=== PATIENT | female | born 1930 | race Caucasian/White ===

== ENCOUNTER 2017-05-08 09:43 | Emergency (ER) | payer MEDICARE ==
[2017-05-08 09:59] VITALS: BP 129/64
--- NOTE | 2017-05-08 11:13 | RAD ---
INDICATION: Cough and fever for 2 days. On home oxygen. Former tobacco use. Mild cardiomegaly. History of breast cancer. COMPARISON: February 24, 2016 CT. TECHNIQUE: Dual energy PA and routine lateral views of the chest were obtained. REPORT: Elevated lung volumes and both diffuse mild prominence of the interstitial markings and patchy rarefaction of the mid to upper lung zone interstitial markings. Fat-containing RIGHT posterior diaphragmatic hernia corresponding with prior CT. No suspicious focal pulmonary lesions. Negative for pleural effusions. Negative for pneumothorax. The heart, pulmonary vasculature, and mediastinal contours are unremarkable. RIGHT breast surgical clips and abnormal skin contour noted. No suspicious focal osseous lesions evident. IMPRESSION: Stigmata of obstructive lung disease. No acute pulmonary or cardiac process evident.
--- NOTE | 2017-05-08 11:20 | UC ---
Ulises Ross Angela, scribed for Kimmy Saldaña MD on 05/08/17 at 1010 . General HPI - HPI Summary HPI Summary: This pt is a 86 y/o female presenting to [facility] c/o dry cough, sore throat, and chest congestion x2 days. Pt reports it started with a cough, sore throat, and itchy ears. Last night, she states it was the worst and had SOB with chest pain. Per daughter-in- law, her breathing was very labored last night. Currently pt feels her chest is tight but has no pain. She c/o fever, generalized weakness, and nausea today. Pt notes it is painful to pass urine but denies dysuria. Per [id number], pt had difficulty ambulating today, was holding on to everything while walking and tripping. Pt notes she just got back to [place] 4 days ago from [place], [place]; she was there for 6 months. She has not used her albuterol as she did not need it in [place]. Pt reports not drinking enough water. She denies vomiting, diarrhea. Pt is currently on Spiriva, Dulera, and albuterol for treatment of COPD (COPD was diagnosed 25 years ago). PMHx: pneumonia (last year). Pt is a former smoker, quit 1997. - History of Current Complaint Chief Complaint: UCGeneralIllness Stated Complaint: COUGH Hx Obtained From: Patient, Family/Functional Consultant - [id number] Onset/Duration: Lasting Days Timing: Constant Onset Severity: Mild Current Severity: Moderate Associated Signs & Symptoms: Positive: Cough, Chest Pain - chest tightness, Fever - today, SOB, Weakness - generalized. Negative: Diarrhea, Headache, Nausea, Vomiting - Allergy/Home Medications Allergies/Adverse Reactions: Allergies Allergy/AdvReac Type Severity Reaction Status Date / Time Thiopental Allergy Severe Anaphylatic Verified 05/08/17 09:53 Shock / UNCONSIOUS BEES Allergy Anaphylatic Uncoded 05/08/17 09:53 Shock CASHEW NUTS Allergy THROAT Uncoded 05/08/17 09:53 CLOSES SESAME SEED/OIL Allergy Itching Uncoded 05/08/17 09:53 SODIUM PENTOTHAL Allergy Anaphylatic Uncoded 05/08/17 09:53 Shock / UNCONSCIOUS PMH/Surg Hx/FS Hx/Imm Hx Cardiovascular History: Hypertension Respiratory History: COPD Cancer History: Breast Cancer, Other - uterine cancer Other Cancer History: History of uterine carcinoma - Surgical History Surgical History: Yes Surgery Procedure, Year, and Place: 4 glaucoma Trabeculectomy 04/09,04/04,05/31, all at [facility] [place] ,lt cataract x 2,lumpectomy right side,3 surgical biopsies, hysterectomy,tonsils - Family History Known Family History: Positive: Respiratory Disease - Younger sister of multi system failure, had bad lungs., Other - Brother: fatal stomach [place] (age of 78). Arthritis. - Social History Occupation: Retired Lives: With Family - lives with her daughter in an apartment. Alcohol Use: None Substance Use Type: None Smoking Status (MU): Former Smoker - quit date: 1997 - Immunization History Most Recent Influenza Vaccination: 2014 Most Recent Tetanus Shot: unknown - probably outdated. Patient will contact primary care provider Review of Systems Constitutional: Fever, Other - generalized weakness Eyes: Negative ENT: Sore Throat Respiratory: Shortness Of Breath, Cough Cardiovascular: Chest Pain - discomfort/pain in the right upper chest off and on. No hx of CAD but does have a hx of cardiac enlargement on echo last year., Other - chronic lymphedema post cancer treatment; uses compression device regularly Gastrointestinal: Nausea, Other - NEGATIVE: vomiting, diarrhea Genitourinary: Other - POSITIVE: painful urination. NEGATIVE: dysuria Motor: Negative Neurovascular: Negative Musculoskeletal: Negative Neurological: Negative Psychological: Negative Is Patient Immunocompromised?: No All Other Systems Reviewed And Are Negative: Yes Physical Exam Triage Information Reviewed: Yes Appearance: Ill-Appearing - Looks unwell, febrile, moving slowly. Alert, conversant although has hearing loss. Vital Signs: Initial Vital Signs Temp 100.3 F 05/08/17 09:53 Pulse 74 05/08/17 09:53 Resp 18 05/08/17 09:53 BP 129/64 05/08/17 09:53 Pulse Ox 97 05/08/17 09:53 Vital Signs Reviewed: Yes Eyes: Positive: Conjunctiva Clear ENT: Positive: Pharynx normal, Other: - moderate cerumen both canals. Dental Exam: Normal Neck: Positive: Supple, Nontender, No Lymphadenopathy Respiratory: Positive: No respiratory distress, Other: - few crackles left base , dry. Negative: Decreased breath sounds, Accessory muscle use Cardiovascular: Positive: RRR, No Murmur Abdomen Description: Positive: Nontender, No Organomegaly, Soft Musculoskeletal: Positive: Strength Intact, ROM Intact, Edema @ - left leg edema. Neurological: Positive: Alert, Muscle Tone Normal Psychological Exam: Normal Diagnostics - Radiology Chest XR Xray Interpretation: No Acute Changes - IMPRESSION: ED physician has reviewed this radiology report and agrees. A Radiology Interpretation Completed By: ED Physician Re-Evaluation - Re-Evaluation First Eval Re-Evaluation Time: 11:05 Comment: Pt was updated on her chest XR results. Course/Dx - Course Course Of Treatment: doxycycline, albuterol as needed. - Differential Dx - Multi-Symptom Provider Diagnoses: COPD exacerbation, clinical diagnosis of pneumonia. Discharge - Discharge Plan Condition: Stable Disposition: HOME Prescriptions: Albuterol HFA INHALER* [Ventolin HFA Inhaler*] 2 puff INH Q4H PRN #1 mdi PRN Reason: Wheezing Doxycycline (Monohydrate) [Doxycycline Monohydrate] 100 mg PO BID #20 cap Patient Education Materials: Bacterial Pneumonia (ED) Referrals: Jaqui Gutierres MD [Primary Care Provider] - Additional Instructions: As discussed, I suspect that you have an early pneumonia. Doxycycline has been prescribed. This can be taken with a snack, but NO DAIRY because it will interfere with the absorption of the medication. Ensure that you improve your hydration. You can use albuterol as needed for breathlessness. You have a follow up with Dr. Gutierres in 2 days and it is important that you keep that visit. If you become weaker or your breathing worsens, please go to the emergency room. The documentation as recorded by the Ulises dueñas Angela accurately reflects the service I personally performed and the decisions made by me, Kimmy Saldaña MD.
== END 2017-05-08 11:25 | disposition home or self-care (01) ==
LOC: UCEAST 09:43
DX: J44.1 Chronic obstructive pulmonary disease with (acute) exacerbation (principal); J18.9 Pneumonia, unspecified organism; I10 Essential (primary) hypertension; Z85.42 Personal history of malignant neoplasm of other parts of uterus; Z87.891 Personal history of nicotine dependence
CPT/HCPCS: 71020; 99212; G0463

== ENCOUNTER 2017-10-28 12:40 | Emergency (ER) | payer MEDICARE ==
--- NOTE | 2017-10-28 14:11 | RAD ---
Indication: Cough. Weakness. Confusion. Former tobacco use. COPD On home oxygen. History of breast cancer. Comparison: September 28, 2017 CT abdomen. May 08, 2017 chest radiograph. Technique: Upright AP 1350 hours Report: Elevated lung volumes and both diffuse mild prominence of the interstitial markings and patchy rarefaction of the mid to upper lung zone interstitial markings. No focal pulmonary lesion, compelling alveolar consolidation, pleural effusion, pneumothorax. Upper normal heart size. Unremarkable central pulmonary vasculature and mediastinal contours. RIGHT epicardial fat pad noted. Mild eventration of the RIGHT hemidiaphragm. Surgical clips at the RIGHT breast. IMPRESSION: Stigmata of obstructive lung disease. No acute pulmonary or cardiac process evident.
[2017-10-28 14:53] LABS: ABS Basophils 0 10^3/ul (0-0.2); ABS Eosinophils 0.1 10^3/ul (0-0.6); ABS Lymphocytes 0.6 10^3/ul (1.0-4.8); ABS Monocytes 0.6 10^3/ul (0-0.8); ABS Neutrophils 5.4 10^3/ul (1.5-7.7); ABS Nucleated RBC 0 10^3/ul; Eosinophil % 1.2 % (0-6); Hematocrit 37 % (35-47); Hemoglobin 12.6 g/dl (12.0-16.0); Lymphocyte % 8.6 % (25-47); Mean Corpuscular HGB Conc 34 g/dl (31-36); Mean Corpuscular Hemoglobin 30 pg (27-31); Mean Corpuscular Volume 87 fL (80-97); Mean Platelet Volume 8 um3 (7.4-10.4); Nucleated Red Blood Cells % 0; Platelet Count 162 10^3/ul (150-450); Red Blood Count 4.24 10^6/ul (4.0-5.4); Red Cell Distribution Width 15 % (10.5-15); White Blood Count 6.7 10^3/ul (3.5-10.8)
[2017-10-28 15:01] LABS: INR 1.02 (0.77-1.02)
[2017-10-28 15:07] LABS: EGFR Non-African American 58.2 (>60)
[2017-10-28 15:16] LABS: Urine Appearance Clear; Urine Blood Negative (Negative); Urine Color Yellow; Urine Ketones Negative (Negative); Urine Protein Negative (Negative); Urine Urobilinogen Negative (Negative)
[2017-10-28] MEDS ORDERED: NS 0.9% 1000 ML* 1,000 ML IV ONE (16:14)
[2017-10-28] MEDS ORDERED: Sulfamethox/Trimethoprim DS 800/160* TAB PO ONE (18:35)
[2017-10-28 19:16] VITALS: BP 139/48
--- NOTE | 2017-10-29 07:45 | ED ---
Shakir Ross Julia, scribed for Travon Rodriguez MD on 10/28/17 at 1316 . Influenza-Like Illness - HPI Summary HPI Summary: This patient is a 86 year old F presenting to [facility] accompanied by her daughter with a chief complaint of worsening influenza like symptoms since 10/23/17. Patient reports rproductive cough with light yellow sputum, ear pain, sore throat, headache, nausea, and decreased appetite. Patient denies vomiting. Daughter reports that she has not eaten in two days and is feeling dizzy, which is unusual for her. Daughter states she has right chest tightness, which is usual for her when she is ill. Patient states she has been taking Mucinex every 12 hours. - History of Current Complaint Chief Complaint: EDFluSymptoms Time Seen by Provider: 10/28/17 13:01 Hx Obtained From: Patient Onset/Duration: Lasting Days, Still Present Associated Signs & Symptoms: Cough, Sore Throat, Headache - Allergy/Home Medications Allergies/Adverse Reactions: Allergies Allergy/AdvReac Type Severity Reaction Status Date / Time thiopental Allergy Anaphylatic Verified 10/28/17 14:42 Shock BEES Allergy Anaphylatic Uncoded 05/08/17 09:53 Shock CASHEW NUTS Allergy THROAT Uncoded 05/08/17 09:53 CLOSES SESAME SEED/OIL Allergy Itching Uncoded 05/08/17 09:53 SODIUM PENTOTHAL Allergy Anaphylatic Uncoded 05/08/17 09:53 Shock / UNCONSCIOUS PMH/Surg Hx/FS Hx/Imm Hx Endocrine/Hematology History: Reports: Hx Thyroid Disease Denies: Hx Diabetes, Hx Systemic Lupus Erythematosus Cardiovascular History: Reports: Hx Coronary Artery Disease - CHOLESTEROL CONTROL WITH MEDS, Hx Hypertension - on medication, Other Cardiovascular Problems/Disorders - mildly enlarged heart Denies: Hx Congestive Heart Failure, Hx Pacemaker/ICD Respiratory History: Reports: Hx Chronic Obstructive Pulmonary Disease (COPD) - on home O2, Hx Sleep Apnea - UNDIAGNOSISED, Other Respiratory Problems/ Disorders - emphysema Denies: Hx Asthma GI History: Reports: Hx Gastroesophageal Reflux Disease - ON MEDS Denies: Hx Ulcer History: Reports: 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" Denies: Hx Dialysis Musculoskeletal History: Reports: Hx Osteoporosis Denies: Hx Rheumatoid Arthritis Sensory History: Reports: Hx Cataracts, Hx Contacts or Glasses, Hx Glaucoma - BILATERAL, Hx Hearing Problem Denies: Hx Hearing Aid Opthamlomology History: Reports: Hx Cataracts, Hx Contacts or Glasses, Hx Glaucoma - BILATERAL Psychiatric History: Reports: Hx Depression, Hx Panic Disorder - Cancer History Cancer Type, 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 Hx Chemotherapy: Yes - uterine Hx Radiation Therapy: Yes - BREAST - Surgical History Surgery Procedure, Year, and Place: 4 glaucoma Trabeculectomy 04/09,04/04,05/31, all at [facility] [place] ,lt cataract x 2,lumpectomy breast right side,3 surgical biopsies, hysterectomy,tonsils Hx Anesthesia Reactions: No Infectious Disease History: No Infectious Disease History: Denies: Hx Clostridium Difficile, Hx Hepatitis, Hx Human Immunodeficiency Virus (HIV), Hx of Known/Suspected MRSA, Hx Shingles, Hx Tuberculosis - exposed as child, History Other Infectious Disease, Traveled Outside the [place] in Last 30 Days - Family History Known Family History: Positive: Respiratory Disease - Younger sister of multi system failure, had bad lungs., Other - Brother: fatal stomach [place] (age of 78). Arthritis. - Social History Alcohol Use: None Substance Use Type: Reports: None Smoking Status (MU): Former Smoker - quit date: 1997 Review of Systems Positive: Sore Throat, Ear Ache Positive: Chest Pain - "tightness" Positive: Cough Positive: Nausea, Other - decreased appetite. Negative: Vomiting Neurological: Other - dizziness Positive: Headache All Other Systems Reviewed And Are Negative: Yes Physical Exam - Summary Physical Exam Summary: Appearance: The patient is well-nourished in no acute distress and in no acute pain. Skin: The skin is warm and dry and skin color reflects adequate perfusion. Skin is tense. HEENT: The head is normocephalic and atraumatic. The pupils are equal and reactive. The conjunctivae are clear and without drainage. Nares are patent and without drainage. Mouth reveals dry mucous membranes and the throat is without erythema and exudate. The external ears are intact. The ear canals are patent and without drainage. The tympanic membranes are intact. Neck: the neck is supple with full range of motion and non-tender. There are no carotid bruits. There is no neck vein distension. Respiratory: Chest is non-tender. Lungs are clear to auscultation and breath sounds are symmetrical and equal. Cardiovascular: Heart is regular rate and rhythm. There is no murmur or rub auscultated. There is no peripheral edema and pulses are symmetrical and equal. Abdomen: The abdomen is soft and non-tender. There are normal bowel sounds heard in all four quadrants and there is no organomegaly palpated. Musculoskeletal: There is no back tenderness noted. Extremities are non-tender with full range of motion. There is good capillary refill. There is no peripheral edema or calf tenderness elicited. Neurological: Patient is alert and oriented to person, place and time. The patient has symmetrical motor strength in all four extremities. Cranial nerves are grossly intact. Deep tendon reflexes are symmetrical and equal in all four extremities. Psychiatric: The patient has an appropriate affect and does not exhibit any anxiety or depression. Triage Information Reviewed: Yes Vital Signs On Initial Exam: Initial Vitals Temp Pulse Resp BP Pulse Ox 96.7 F 82 19 157/54 91 10/28/17 12:48 10/28/17 12:48 10/28/17 12:48 10/28/17 12:48 10/28/17 12:48 Vital Signs Reviewed: Yes Diagnostics - Vital Signs Vital Signs Temp Pulse Resp BP Pulse Ox 10/28/17 12:48 96.7 F 82 19 157/54 91 - Laboratory Lab Results: Lab Results 10/28/17 10/28/17 10/28/17 Range/Units 14:04 14:44 14:44 WBC 6.7 (3.5-10.8) 10^3/ul RBC 4.24 (4.0-5.4) 10^6/ul Hgb 12.6 (12.0-16.0) g/dl Hct 37 (35-47) % MCV 87 (80-97) fL MCH 30 (27-31) pg MCHC 34 (31-36) g/dl RDW 15 (10.5-15) % Plt Count 162 (150-450) 10^3/ul MPV 8 (7.4-10.4) um3 Neut % (Auto) 81.0 (38-83) % Lymph % (Auto) 8.6 L (25-47) % [place] % (Auto) 8.5 H (0-7) % Eos % (Auto) 1.2 (0-6) % Baso % (Auto) 0.7 (0-2) % Absolute Neuts (auto) 5.4 (1.5-7.7) 10^3/ul Absolute Lymphs (auto) 0.6 L (1.0-4.8) 10^3/ul Absolute Monos (auto) 0.6 (0-0.8) 10^3/ul Absolute Eos (auto) 0.1 (0-0.6) 10^3/ul Absolute Basos (auto) 0 (0-0.2) 10^3/ul Absolute Nucleated RBC 0 10^3/ul Nucleated RBC % 0 INR (Anticoag Therapy) 1.02 (0.77-1.02) APTT 41.2 H (26.0-36.3) seconds Sodium (133-145) mmol/L Potassium (3.5-5.0) mmol/L Chloride (101-111) mmol/L Carbon Dioxide (22-32) mmol/L Anion Gap (2-11) mmol/L BUN (6-24) mg/dL Creatinine (0.51-0.95) mg/dL Est GFR ( Amer) (>60) Est GFR (Non-Af Amer) (>60) BUN/Creatinine Ratio (8-20) Glucose (70-100) mg/dL Lactic Acid (0.5-2.0) mmol/L Calcium (8.6-10.3) mg/dL Total Bilirubin (0.2-1.0) mg/dL AST (13-39) U/L ALT (7-52) U/L Alkaline Phosphatase (34-104) U/L Troponin I (<0.04) ng/mL C-Reactive Protein (< 5.00) mg/L B-Natriuretic Peptide ( - 100) pg/mL Total Protein (6.4-8.9) g/dL Albumin (3.2-5.2) g/dL Globulin (2-4) g/dL Albumin/Globulin Ratio (1-3) Urine Color Yellow Urine Appearance Clear Urine pH 7.0 (5-9) Ur Specific [place] 1.010 (1.010-1.030) Urine Protein Negative (Negative) Urine Ketones Negative (Negative) Urine Blood Negative (Negative) Urine Nitrate Negative (Negative) Urine Bilirubin Negative (Negative) Urine Urobilinogen Negative (Negative) Ur Leukocyte Esterase 3+ A (Negative) Urine WBC (Auto) 2+(11-20/hpf) A (Absent) Urine RBC (Auto) Absent (Absent) Ur Squamous Epith Cells Present A (Absent) Ur Transition Epith Cell Present A (Absent) Urine Bacteria Absent (Absent) Urine Glucose Negative (Negative) Urine Ascorbic Acid * A (Negative) Influenza A (Rapid) (Negative) Influenza B (Rapid) (Negative) 10/28/17 10/28/17 10/28/17 Range/Units 14:44 14:44 14:44 WBC (3.5-10.8) 10^3/ul RBC (4.0-5.4) 10^6/ul Hgb (12.0-16.0) g/dl Hct (35-47) % MCV (80-97) fL MCH (27-31) pg MCHC (31-36) g/dl RDW (10.5-15) % Plt Count (150-450) 10^3/ul MPV (7.4-10.4) um3 Neut % (Auto) (38-83) % Lymph % (Auto) (25-47) % [place] % (Auto) (0-7) % Eos % (Auto) (0-6) % Baso % (Auto) (0-2) % Absolute Neuts (auto) (1.5-7.7) 10^3/ul Absolute Lymphs (auto) (1.0-4.8) 10^3/ul Absolute Monos (auto) (0-0.8) 10^3/ul Absolute Eos (auto) (0-0.6) 10^3/ul Absolute Basos (auto) (0-0.2) 10^3/ul Absolute Nucleated RBC 10^3/ul Nucleated RBC % INR (Anticoag Therapy) (0.77-1.02) APTT (26.0-36.3) seconds Sodium 129 L (133-145) mmol/L Potassium 3.7 (3.5-5.0) mmol/L Chloride 94 L (101-111) mmol/L Carbon Dioxide 27 (22-32) mmol/L Anion Gap 8 (2-11) mmol/L BUN 17 (6-24) mg/dL Creatinine 0.92 (0.51-0.95) mg/dL Est GFR ( Amer) 74.8 (>60) Est GFR (Non-Af Amer) 58.2 (>60) BUN/Creatinine Ratio 18.5 (8-20) Glucose 106 H (70-100) mg/dL Lactic Acid 1.1 (0.5-2.0) mmol/L Calcium 9.5 (8.6-10.3) mg/dL Total Bilirubin 1.50 H (0.2-1.0) mg/dL AST 27 (13-39) U/L ALT 29 (7-52) U/L Alkaline Phosphatase 65 (34-104) U/L Troponin I 0.00 (<0.04) ng/mL C-Reactive Protein 2.27 (< 5.00) mg/L B-Natriuretic Peptide 183 H ( - 100) pg/mL Total Protein 7.3 (6.4-8.9) g/dL Albumin 4.1 (3.2-5.2) g/dL Globulin 3.2 (2-4) g/dL Albumin/Globulin Ratio 1.3 (1-3) Urine Color Urine Appearance Urine pH (5-9) Ur Specific [place] (1.010-1.030) Urine Protein (Negative) Urine Ketones (Negative) Urine Blood (Negative) Urine Nitrate (Negative) Urine Bilirubin (Negative) Urine Urobilinogen (Negative) Ur Leukocyte Esterase (Negative) Urine WBC (Auto) (Absent) Urine RBC (Auto) (Absent) Ur Squamous Epith Cells (Absent) Ur Transition Epith Cell (Absent) Urine Bacteria (Absent) Urine Glucose (Negative) Urine Ascorbic Acid (Negative) Influenza A (Rapid) (Negative) Influenza B (Rapid) (Negative) 10/28/17 10/28/17 Range/Units 14:53 18:25 WBC (3.5-10.8) 10^3/ul RBC (4.0-5.4) 10^6/ul Hgb (12.0-16.0) g/dl Hct (35-47) % MCV (80-97) fL MCH (27-31) pg MCHC (31-36) g/dl RDW (10.5-15) % Plt Count (150-450) 10^3/ul MPV (7.4-10.4) um3 Neut % (Auto) (38-83) % Lymph % (Auto) (25-47) % [place] % (Auto) (0-7) % Eos % (Auto) (0-6) % Baso % (Auto) (0-2) % Absolute Neuts (auto) (1.5-7.7) 10^3/ul Absolute Lymphs (auto) (1.0-4.8) 10^3/ul Absolute Monos (auto) (0-0.8) 10^3/ul Absolute Eos (auto) (0-0.6) 10^3/ul Absolute Basos (auto) (0-0.2) 10^3/ul Absolute Nucleated RBC 10^3/ul Nucleated RBC % INR (Anticoag Therapy) (0.77-1.02) APTT (26.0-36.3) seconds Sodium (133-145) mmol/L Potassium (3.5-5.0) mmol/L Chloride (101-111) mmol/L Carbon Dioxide (22-32) mmol/L Anion Gap (2-11) mmol/L BUN (6-24) mg/dL Creatinine (0.51-0.95) mg/dL Est GFR ( Amer) (>60) Est GFR (Non-Af Amer) (>60) BUN/Creatinine Ratio (8-20) Glucose (70-100) mg/dL Lactic Acid 1.1 (0.5-2.0) mmol/L Calcium (8.6-10.3) mg/dL Total Bilirubin (0.2-1.0) mg/dL AST (13-39) U/L ALT (7-52) U/L Alkaline Phosphatase (34-104) U/L Troponin I (<0.04) ng/mL C-Reactive Protein (< 5.00) mg/L B-Natriuretic Peptide ( - 100) pg/mL Total Protein (6.4-8.9) g/dL Albumin (3.2-5.2) g/dL Globulin (2-4) g/dL Albumin/Globulin Ratio (1-3) Urine Color Urine Appearance Urine pH (5-9) Ur Specific [place] (1.010-1.030) Urine Protein (Negative) Urine Ketones (Negative) Urine Blood (Negative) Urine Nitrate (Negative) Urine Bilirubin (Negative) Urine Urobilinogen (Negative) Ur Leukocyte Esterase (Negative) Urine WBC (Auto) (Absent) Urine RBC (Auto) (Absent) Ur Squamous Epith Cells (Absent) Ur Transition Epith Cell (Absent) Urine Bacteria (Absent) Urine Glucose (Negative) Urine Ascorbic Acid (Negative) Influenza A (Rapid) Negative (Negative) Influenza B (Rapid) Negative (Negative) Result Diagrams: 10/28/17 14:44 10/28/17 14:44 Lab Statement: Any lab studies that have been ordered have been reviewed, and results considered in the medical decision making process. - Radiology CXR Radiology Interpretation Completed By: Radiologist - Stigmata of obstructive lung disease. No acute pulmonary or cardiac process evident. ED Physician has reviewed this report. Flu Symptom Course/Dx - Course Course Of Treatment: Ms. Clement presented with flu-like symptoms for a few days. She looked dry and was treated with IV NS. He W/U was negative for influenza or pneumonia but she clinically has a bronchitis with underlying pulmonary disease and I will treat her with antibiotics. Her U/A is equivocal and I will cover both. - Diagnoses Provider Diagnoses: Bronchitis Discharge - Discharge Plan Condition: Stable Disposition: HOME Prescriptions: Sulfamethox/Trimethoprim DS* [Bactrim DS 800/160 TAB*] 1 tab PO BID #20 tab Patient Education Materials: Acute Bronchitis (ED) Referrals: Jaqui Gutierres MD [Primary Care Provider] - 3 Days (Follow up with you primary care physician.) The documentation as recorded by the Shakir dueñas Julia accurately reflects the service I personally performed and the decisions made by me, Travon Rodriguez MD.
== END 2017-10-28 19:16 | disposition home or self-care (01) ==
LOC: ED 12:40
DX: J40 Bronchitis, not specified as acute or chronic (principal); J44.9 Chronic obstructive pulmonary disease, unspecified; F32.9 Major depressive disorder, single episode, unspecified; Z85.42 Personal history of malignant neoplasm of other parts of uterus; I25.10 Atherosclerotic heart disease of native coronary artery without angina pectoris; E07.9 Disorder of thyroid, unspecified; Z87.891 Personal history of nicotine dependence
CPT/HCPCS: 36415; 71045; 80053; 81003; 81015; 83605; 83880; 84484; 85025; 85610; 85730; 86140; 87040; 87086; 87502; 96360; 99282; A9270-GY

== ENCOUNTER 2017-10-30 04:36 | Inpatient (IN) | payer MEDICARE ==
[2017-10-30] MEDS ORDERED: NS 0.9% 1000 ML* 1,000 ML IV ONE (04:45)
[2017-10-30] MEDS ORDERED: methylPREDNISolone 125 MG* 2 ML VIAL IV ONE (04:46)
[2017-10-30] MEDS ORDERED: Albuterol/Ipratropium NEB.SOL* Albuterol 2.5 MG/Ipratropium 0.5 MG 3 ML INH ONE (04:46)
[2017-10-30 07:04] LABS: ABS Basophils 0 10^3/ul (0-0.2); ABS Eosinophils 0 10^3/ul (0-0.6); ABS Lymphocytes 0.5 10^3/ul (1.0-4.8); ABS Monocytes 0.5 10^3/ul (0-0.8); ABS Neutrophils 7.5 10^3/ul (1.5-7.7); ABS Nucleated RBC 0 10^3/ul; Eosinophil % 0.1 % (0-6); Hematocrit 33 % (35-47); Hemoglobin 11.4 g/dl (12.0-16.0); Lymphocyte % 5.6 % (25-47); Mean Corpuscular HGB Conc 35 g/dl (31-36); Mean Corpuscular Hemoglobin 30 pg (27-31); Mean Corpuscular Volume 86 fL (80-97); Mean Platelet Volume 8 um3 (7.4-10.4); Nucleated Red Blood Cells % 0; Platelet Count 145 10^3/ul (150-450); Red Blood Count 3.81 10^6/ul (4.0-5.4); Red Cell Distribution Width 14 % (10.5-15); White Blood Count 8.4 10^3/ul (3.5-10.8)
--- NOTE | 2017-10-30 07:09 | ED ---
Kaden Ross Nikita, scribed for Rashard Medina MD on 10/30/17 at 0446 . Respiratory - HPI Summary HPI Summary: This patient is an 86 year old F BIBA to ED with a chief complaint of SOB since yesterday. Patient was in the ED yesterday for similar symptoms and was D/C with bronchitis and sent home with bactrum for abx. The patient rates the pain 0 /10 in severity. Symptoms aggravated by nothing. Symptoms alleviated by nothing. Patient reports cough and difficulty breathing. Patient denies fever, CP, or any pain. - History of Current Complaint Stated Complaint: SOB Time Seen by Provider: 10/30/17 04:41 Hx Obtained From: Patient Onset/Duration: Sudden Onset, Lasting Days, Still Present Timing: Constant Current Severity: None Pain Intensity: 0 Aggravating Factor(s): Nothing Alleviating Factor(s): Nothing Associated Signs and Symptoms: SOB - Patient reports cough and difficulty breathing. Patient denies fever, CP, or any pain. - Allergy/Home Medications Allergies/Adverse Reactions: Allergies Allergy/AdvReac Type Severity Reaction Status Date / Time thiopental Allergy Anaphylatic Verified 10/28/17 14:42 Shock BEES Allergy Anaphylatic Uncoded 05/08/17 09:53 Shock CASHEW NUTS Allergy THROAT Uncoded 05/08/17 09:53 CLOSES SESAME SEED/OIL Allergy Itching Uncoded 05/08/17 09:53 SODIUM PENTOTHAL Allergy Anaphylatic Uncoded 05/08/17 09:53 Shock / UNCONSCIOUS PMH/Surg Hx/FS Hx/Imm Hx Endocrine/Hematology History: Reports: Hx Thyroid Disease Denies: Hx Diabetes, Hx Systemic Lupus Erythematosus Cardiovascular History: Reports: Hx Coronary Artery Disease - CHOLESTEROL CONTROL WITH MEDS, Hx Hypertension - on medication, Other Cardiovascular Problems/Disorders - mildly enlarged heart Denies: Hx Congestive Heart Failure, Hx Pacemaker/ICD Respiratory History: Reports: Hx Chronic Obstructive Pulmonary Disease (COPD) - on home O2, Hx Sleep Apnea - UNDIAGNOSISED, Other Respiratory Problems/ Disorders - emphysema Denies: Hx Asthma GI History: Reports: Hx Gastroesophageal Reflux Disease - ON MEDS Denies: Hx Ulcer History: Reports: 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" Denies: Hx Dialysis Musculoskeletal History: Reports: Hx Osteoporosis Denies: Hx Rheumatoid Arthritis Sensory History: Reports: Hx Cataracts, Hx Contacts or Glasses, Hx Glaucoma - BILATERAL, Hx Hearing Problem Denies: Hx Hearing Aid Opthamlomology History: Reports: Hx Cataracts, Hx Contacts or Glasses, Hx Glaucoma - BILATERAL Psychiatric History: Reports: Hx Depression, Hx Panic Disorder - Cancer History Cancer Type, 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 Hx Chemotherapy: Yes - uterine Hx Radiation Therapy: Yes - BREAST - Surgical History Surgery Procedure, Year, and Place: 4 glaucoma Trabeculectomy 04/09,04/04,05/31[place] [facility] [place] [facility] [place] 2,lumpectomy breast right side,3 surgical biopsies, hysterectomy,tonsils Hx Anesthesia Reactions: No Infectious Disease History: Denies: Hx Clostridium Difficile, Hx Hepatitis, Hx Human Immunodeficiency Virus (HIV), Hx of Known/Suspected MRSA, Hx Shingles, Hx Tuberculosis - exposed as child, History Other Infectious Disease - Family History Known Family History: Positive: Respiratory Disease - Younger sister of multi system failure, had bad lungs., Other - Brother: fatal stomach CA (age of 78). Arthritis. - Social History Alcohol Use: None Substance Use Type: Reports: None Smoking Status (MU): Former Smoker - quit date: 1997 Review of Systems Negative: Fever Negative: Chest Pain Positive: Shortness Of Breath, Cough, Other - difficulty breathing Positive: Other - denies any pain All Other Systems Reviewed And Are Negative: Yes Physical Exam - Summary Physical Exam Summary: Appearance: Well appearing, no pain distress Skin: warm, dry, reflects adequate perfusion Head/face: normal Eyes: EOMI, MARCELLUS ENT: Dry mucous membranes, hard of hearing Neck: supple, non-tender, No JVD of the neck Respiratory: breath sounds present, Diffuse expiratory wheezing with prolonged expiratory phase, Wheezing and rustling breath sounds of the bases, hypoxic on O2 at home, 91-94% on 2 L O2 Cardiovascular: RRR, pulses symmetrical, no murmur Abdomen: non-tender, soft Bowel: present Musculoskeletal: normal, strength/ROM intact, No peripheral edema Neuro: normal, sensory motor intact, A&Ox3 Triage Information Reviewed: Yes Vital Signs On Initial Exam: Initial Vitals Temp Pulse Resp BP Pulse Ox 99.3 F 92 22 145/55 99 10/30/17 04:41 10/30/17 04:41 10/30/17 04:41 10/30/17 04:41 10/30/17 04:41 Vital Signs Reviewed: Yes Diagnostics - Vital Signs Vital Signs Temp Pulse Resp BP Pulse Ox 10/30/17 06:39 111 20 134/65 97 10/30/17 05:16 90 20 100 10/30/17 04:46 22 10/30/17 04:41 37.4 C 92 22 145/55 99 - Laboratory Lab Results: Lab Results 10/30/17 Range/Units 05:30 Patient Temperature Not Reportable ABG pH 7.43 (7.35-7.45) ABG pH (Temp Correct) Not Reportable ABG pCO2 34 L (35-45) mmHg ABG pCO2 (Temp Corrct Not Reportable ABG pO2 85 (80-100) mmHg ABG pO2 (Temp Correct Not Reportable ABG HCO3 23.9 (19-31) mmol/L ABG O2 Saturation 98.7 H (95-98) % ABG Base Excess -1.2 (-2.0-2.0) Respiration Rate Not Reportable O2 Delivery Device nasal cannula Ventilator Type Not Reportable Vent Mode Not Reportable FiO2 30 Inspiratory Time Not Reportable PEEP Not Reportable Pressure Support Not Reportable Pressure Control Not Reportable EPAP Not Reportable IPAP Not Reportable BiPAP Not Reportable Lab Statement: Any lab studies that have been ordered have been reviewed, and results considered in the medical decision making process. - Radiology CXR Radiology Interpretation Completed By: ED Physician - COPD with domed diaphragm vs. atelectasis R lower lobe, no acute infiltrate - EKG 0459 Cardiac Rate: NL EKG Rhythm: Sinus Rhythm - [address] Segment: Non-Specific - with baseline wander EKG Interpretation: Normal axis, QTC 491 msec Disposition - Course Course Of Treatment: pt with COPD with hypoxia. Didnt wear her O2. Steroid, nebs here improved sx. Signed out pending labs to Dr Nance at 7am. - Differential Dx - Cardiopulmonary Differential Diagnoses - Cardiopulmonary: Bronchitis, Exacerbation Of COPD, Other - pneumonia, congestive heart failure - Diagnoses Provider Diagnoses: COPD exacerbation, Hypoxia Discharge - Discharge Plan Condition: Fair Disposition: OTHER Discharge Disposition Comment: This pt will be signed out to Dr. Arthur, pending dispo, awaiting labs. Referrals: Jaqui Gutierres MD [Primary Care Provider] - The documentation as recorded by the scribe, Kaden,Sachin accurately reflects the service I personally performed and the decisions made by me, Rashard Medina MD.
[2017-10-30 07:20] LABS: EGFR Non-African American 64.6 (>60)
[2017-10-30] MEDS ORDERED: Acetaminophen TAB* 325 MG PO ONE (07:26)
[2017-10-30] MEDS ORDERED: Acetaminophen TAB* 325 MG ONE (07:26)
--- NOTE | 2017-10-30 07:31 | RAD ---
INDICATION: COPD COMPARISON: October 28, 2017 TECHNIQUE: An AP portable view obtained at 0500 hours is submitted. FINDINGS: Bones/Soft Tissues: There are no acute bony findings. Clips project over the right breast consistent with prior chest wall surgery. Cardiomediastinal: The cardiomediastinal silhouette is normal. Lungs: There is no focal consolidation. There is mild diffuse increased interstitial markings ribs and a stable finding. Minimal linear change left lung base most consistent with atelectasis. Pleura: There are no pleural effusions. Other: There is partial eventration right hemidiaphragm, unchanged. IMPRESSION: ESSENTIALLY STABLE EXAMINATION WITH CHRONIC INTERSTITIAL FINDINGS.
[2017-10-30] MEDS ORDERED: Potassium Chlor TAB* 20 MEQ TAB.ER PO ONE ×2 (07:32→18:00)
[2017-10-30] MEDS ORDERED: Lactulose 300 ML for PR* 10 GM/15 ML BTL PR PRN (09:16)
[2017-10-30] MEDS ORDERED: Fluticasone NASAL SPRAY 50MCG* 16 gm SPRAY BTL BOTH NARES PRN (09:16)
[2017-10-30] MEDS ORDERED: Albuterol/Ipratropium NEB.SOL* Albuterol 2.5 MG/Ipratropium 0.5 MG 3 ML INH SCH (10:00)
[2017-10-30] MEDS: methylPREDNISolone SOD 40 MG* 1 ML VIAL IV SCH ×2 (10:04→18:10)
[2017-10-30] MEDS: NS 0.9% 1000 ML* 1,000 ML IV SCH (11:45)
[2017-10-30] MEDS: Azithromycin IV(*) 500 MG in D5W 250 ML BAG* 250 ML IVPB SCH (11:45)
[2017-10-30] MEDS: Heparin VIAL(*) 5000 UNITS/ML VIAL (FIVE THOUSAND) SUBCUT SCH ×2 (13:47→20:57)
[2017-10-30] MEDS: PROCHLORPERAZINE INJ 5 MG/ML 2 ML VIAL IV PRN (15:34)
[2017-10-30] MEDS: Albuterol/Ipratropium NEB.SOL* Albuterol 2.5 MG/Ipratropium 0.5 MG 3 ML INH PRN (15:55)
[2017-10-30] MEDS: Acetaminophen TAB* 325 MG PO PRN (18:30)
[2017-10-30] MEDS ORDERED: Potassium Chloride LIQUID* 20 MEQ PACKET PO ONE (18:45)
[2017-10-30] MEDS: Albuterol/Ipratropium NEB.SOL* Albuterol 2.5 MG/Ipratropium 0.5 MG 3 ML INH SCH (19:56)
--- NOTE | 2017-10-30 20:53 | ED ---
Isaias Ross Natalie, scribed for Sharyn Arthur MD on 10/30/17 at 1148 . Progress - Progress Note Progress Note: The patient is a sign-out from Dr. Medina at shift change. She was in the ED 10/28/17 for SOB, and Dr. Rodriguez D/C her with prescription for Bactrim. She returned for continuing SOB. During initial visit, the patient stated she is thirsty and very hot. Her temperature is 101.8F. The patient says her breathing feels better, and she is not wheezing. Her daughter states that she is very shaky, and the patients pulse is higher than normal at 106 instead of around 65. She had three nebs this am instead of her usual two, which could contribute to the increased pulse rate. At home, she has 2L O2, but does not use it as shes supposed to. A previous flu swab from 10/28/17 is negative. Re-Evaluation - Re-Evaluation First Eval Re-Evaluation Time: 08:00 Change: Unchanged Comment: I discussed with the patient about her [place] [facility] Course/Dx - Course Course Of Treatment: pt with COPD with hypoxia. Didnt wear her O2. Steroid, nebs here improved sx. Signed out pending labs to Dr Arthur at 7am. The patient 's labs show hyponatremia, hypokalemia, hypocalcemia, anemia. Pt developed fever in ED. Source: pneumonia. Initial lactate not elevated. Blood cultures were sent on Dr. Medina's shift. Sepsis fluids not given as serum sodlium is low, and may be due to SIADH due to lung disease. Hospitalist to eval hyponatremia with U Na and U osm. Pt given acetaminophen. Potassium and calcium given po. The patient is admitted to [facility] DISPOSITION: [place]MISSION [place] [facility] CONDITION: STABLE. DIAGNOSIS: HYPOXIA, COPD EXACERBATION, BRONCHITIS - Diagnoses Provider Diagnoses: COPD exacerbation, Hypoxia, Bronchitis - Provider Notifications Instructed by Provider To: Admit As Inpatient - Critical Care Time Critical Care Time: 30-74 min - 30 minutes The documentation as recorded by the Isaias dueñas Natalie accurately reflects the service I personally performed and the decisions made by me, Sharyn Arthur MD.
[2017-10-30] MEDS: Docusate CAP* 100 MG PO SCH (20:57)
--- NOTE | 2017-10-30 22:05 | HP ---
CC: Dr. Gutierres* HISTORY AND PHYSICAL: DATE OF ADMISSION: 10/30/17 PRIMARY CARE PROVIDER: Dr. Gutierres. CHIEF COMPLAINT: Shortness of breath. HISTORY OF PRESENT ILLNESS: Aminah Clement is an 86-year-old female with a history of COPD, who should be using oxygen at home, but she stated she has not been. It was prescribed to her 3 years ago. She also has a history of uterine cancer , who presented to the hospital complaining of shortness of breath. She was seen here in the emergency department 3 days ago and prescribed Bactrim for bronchitis. Today, she presents with more wheezing. She is being diagnosed with COPD exacerbation and bronchitis and she is going to be admitted. I suspect the patient will need approximately 2 to 3 days of hospital stay. PAST MEDICAL HISTORY: 1. COPD, oxygen dependent on a p.r.n. basis. 2. History of endometrial carcinosarcoma, status post total abdominal hysterectomy and bilateral salpingo-oophorectomy in 2012. 3. History of vitamin B12 deficiency. 4. Hypertension. 5. Hypothyroidism. 6. History of breast cancer, status post a lumpectomy in 2000 and tamoxifen for 5 years at that point. 7. Gastroesophageal reflux disease. 8. Glaucoma. 9. Dyslipidemia. 10. Hypertension. 11. Hypothyroidism. 12. History of lymphedema in the left leg of unknown cause, chronic. 13. History of eye surgery. 14. History of tonsillectomy. CURRENT MEDICATIONS: Include: 1. Bactrim DS 1 tablet b.i.d. started today. 2. Singulair 10 mg daily. 3. Restasis 0.05% one drop both eyes b.i.d. 4. Spiriva inhalation 2 puffs at bedtime. 5. Symbicort 160/4.5 two puffs b.i.d. 6. Hydrochlorothiazide 25 mg daily. 7. Flonase nasal spray 1 spray both nostrils daily p.r.n. 8. Fluoxetine 20 mg daily. 9. Nexium 40 mg daily. 10. Levothyroxine 75 mcg daily. 11. Lactulose 30 mL one bottle on a p.r.n. basis. 12. Travatan 0.004% one drop both eyes daily. 13. Timolol eye drops 0.5% one drop right eye daily. 14. Metoprolol tartrate 50 mg daily. 15. Valsartan 20 mg b.i.d. 16. Atorvastatin 20 mg daily. 17. Amlodipine 10 mg daily. 18. Atrovent inhaler 1 puff every 6 hours p.r.n. ALLERGIES: Include THIOPENTAL. FAMILY HISTORY: Positive for sister with breast cancer, brother with leukemia. Rheumatoid arthritis in sisters. Daughter with history of SLE. SOCIAL HISTORY: The patient has a history of [id number] smoking and she quit in 1996. She denies any alcohol or drug use. She lives with her daughter, who is her surrogate. Her name is Valarie Clement. REVIEW OF SYSTEMS: Please see history of present illness. In addition to abovementioned, the patient stated that she had been having intermittent fevers in the range of up to 101 degrees. The temperature reported in the ED was 100.3 degrees. She stated that she is coughing and some times, she coughs up green sputum, but usually it is nonproductive. Complains of wheezing and marked shortness of breath for the past week. She had been eating poorly and drinking poorly. All the remaining 12 systems were reviewed with the patient and were otherwise negative. PHYSICAL EXAMINATION GENERAL: The patient is a very pleasant 86-year-old female, who is in no acute distress. Alert, awake, and oriented x3. VITAL SIGNS: Blood pressure of 140/58, heart rate of 96 and regular, respiratory rate of 20, O2 saturation 97% on 2 L of oxygen via nasal cannula, and temperature 97.7. HEENT: Head atraumatic, normocephalic. Eyes: Pupils are equal and reactive to light and accommodation. Oropharynx clear. Mucosa moist. NECK: Supple. No JVD. No bruits bilaterally. RESPIRATORY: Diffuse wheezes in bilateral entire lungs. Rhonchi in bilateral bases. CARDIOVASCULAR: Regular rate and rhythm. No murmur. ABDOMEN: Soft and nontender. Bowel sounds present in all 4 quadrants. EXTREMITIES: There is trace pedal edema in the right lower extremity, +1 pedal edema in the left lower extremity, which is due to chronic lymphedema. There was no clubbing or cyanosis. Pulses are +2 bilaterally. NEUROLOGIC: Cranial nerves II through XII grossly intact. Motor strength is 5/ 5 bilaterally. Speech clear. SKIN: No ecchymotic areas or rashes noted. LABORATORY DATA: Showed white blood cell count of 8.4, hemoglobin 11.4, hematocrit of 33, and platelets of 145. Sodium was 125, potassium 3.1, chloride 94, carbon dioxide 21, BUN 17, creatinine 0.84. ABG obtained today showed pH of 7.43, PCO2 of 34, PO2 of 85, and bicarb of 23.9. C-reactive protein was 98, troponin of 0.01, procalcitonin below 0.1, and brain natriuretic peptide was 275. Flu test documented on 10/28/17 was negative. Portable chest x-ray obtained on 10/30/17, impression: "Essentially stable examination with chronic interstitial findings." EKG showed sinus tachycardia with a heart rate of 90 beats per minute with no significant ST changes. ASSESSMENT AND PLAN: 1. In regards to the patient's hypoxemia, it is likely chronic and the patient was supposed to use oxygen at home. She is in chronic obstructive pulmonary disease exacerbation, which may be contributing to worsening of hypoxemia and she is going to be placed on Solu-Medrol as well as nebulizers on a scheduled basis. 2. For bronchitis, the patient is going to be placed on azithromycin. 3. The patient's hyponatremia is likely related to her combination of use of hydrochlorothiazide and dehydration. Hydrochlorothiazide and valsartan is going to be held. 4. The patient is going to be continued on amlodipine and metoprolol for her hypertension. 5. Gastroesophageal reflux disease is going to be treated with omeprazole. Nexium is not on formulary of either hospital. 6. For her DVT prophylaxis, the patient is going to be placed on heparin subcutaneously. 7. For dehydration, she is going to be placed on intravenous fluids. 8. The patient's code status is full. That was discussed with both the patient 's daughter, who is her surrogate, and the patient. 9. The patient's hypokalemia is going to be replaced orally. TIME SPENT: Approximately 72 minutes were spent on the admission of this patient, more than half that time was spent [id number] with the patient during the interview and physical exam. [id number] #: [id number] MTDD
[2017-10-31] MEDS: PROCHLORPERAZINE INJ 5 MG/ML 2 ML VIAL IV PRN (00:08)
[2017-10-31] MEDS: Acetaminophen TAB* 325 MG PO PRN (00:08)
[2017-10-31] MEDS: guaiFENesin LIQ* 100 MG/5 ML UDC PO PRN ×2 (00:08→21:40)
[2017-10-31] MEDS: Albuterol/Ipratropium NEB.SOL* Albuterol 2.5 MG/Ipratropium 0.5 MG 3 ML INH SCH ×4 (00:14→21:49)
[2017-10-31] MEDS: methylPREDNISolone SOD 40 MG* 1 ML VIAL IV SCH ×4 (01:41→17:29)
[2017-10-31] MEDS: Calcium Carbonate CHEW TAB* 500 MG (TUMS) PO PRN ×2 (02:44→20:21)
[2017-10-31] MEDS: Levothyroxine TAB* 75 MCG TAB PO SCH (05:08)
[2017-10-31] MEDS: Omeprazole CAP* 20 MG PO SCH (05:08)
[2017-10-31] MEDS: Heparin VIAL(*) 5000 UNITS/ML VIAL (FIVE THOUSAND) SUBCUT SCH ×3 (05:09→21:40)
[2017-10-31 05:58] LABS: EGFR Non-African American 72.5 (>60)
[2017-10-31 08:31] LABS: ABS Basophils 0 10^3/ul (0-0.2); ABS Eosinophils 0 10^3/ul (0-0.6); ABS Lymphocytes 0.6 10^3/ul (1.0-4.8); ABS Monocytes 0.9 10^3/ul (0-0.8); ABS Neutrophils 11.5 10^3/ul (1.5-7.7); ABS Nucleated RBC 0 10^3/ul; Eosinophil % 0 % (0-6); Hematocrit 35 % (35-47); Lymphocyte % 4.8 % (25-47); Mean Corpuscular HGB Conc 34 g/dl (31-36); Mean Corpuscular Hemoglobin 30 pg (27-31); Mean Corpuscular Volume 86 fL (80-97); Mean Platelet Volume 9 um3 (7.4-10.4); Nucleated Red Blood Cells % 0.1; Platelet Count 197 10^3/ul (150-450); Red Blood Count 4.07 10^6/ul (4.0-5.4); Red Cell Distribution Width 15 % (10.5-15); White Blood Count 13.1 10^3/ul (3.5-10.8)
[2017-10-31] MEDS: Timolol 0.5% OPTH.SOL* BTL RIGHT EYE SCH ×3 (10:02→20:22)
[2017-10-31] MEDS: Docusate CAP* 100 MG PO SCH ×2 (10:02→20:21)
[2017-10-31] MEDS: FLUoxetine CAP* 20 MG PO SCH (10:03)
[2017-10-31] MEDS: amLODIPine TAB* 5 MG PO SCH (10:03)
[2017-10-31] MEDS: Atorvastatin* 20 MG TAB PO SCH (10:03)
[2017-10-31] MEDS: Metoprolol Tartrate TAB* 50 mg PO SCH (10:03)
[2017-10-31] MEDS: Albuterol/Ipratropium NEB.SOL* Albuterol 2.5 MG/Ipratropium 0.5 MG 3 ML INH PRN (12:10)
--- NOTE | 2017-10-31 12:36 | RAD ---
INDICATION: Code patel, change in mental status. COMPARISON: There are no prior studies available for comparison. TECHNIQUE: Contiguous axial sections of the brain were obtained from the skull base to the vertex without contrast. FINDINGS: The ventricles, cisterns and sulci are enlarged consistent with diffuse atrophy. There are multiple focal areas of decreased density in the subcortical and periventricular white matter suggestive of moderate chronic small vessel ischemic changes. No mass effect is present. There is no evidence for hemorrhage. There is mild mucosal thickening within the maxillary sinuses. The paranasal sinuses and mastoid air cells otherwise appear clear. The results of this exam were called to the referring clinician at 1228 hours. IMPRESSION: 1. NO EVIDENCE FOR GROSS ACUTE INFARCT, MASS EFFECT OR HEMORRHAGE. 2. ATROPHY AND FINDINGS CONSISTENT WITH CHRONIC SMALL VESSEL ISCHEMIC CHANGES.
[2017-10-31] MEDS ORDERED: Furosemide IV* 10 MG/ML 2 ML VIAL (20 MG) IV SLOW PU ONE (12:37)
--- NOTE | 2017-10-31 12:52 | PN ---
Subjective Date of Service: 10/31/17 Interval History: Patient seen and examined at bedside. [facility] staff notified provider that Patient had a sudden change in mental status after receiving her midline. Per staff at bedside Pt had been alert and oriented this morning, Pt became unresponsive and was staring to the left with a fixed gauze. Just prior to that Pt had been c/o increased shortness of breath and found to be hypoxic with O2 sats 70-80s. RT was called to bedside for an assessment. Pt received a breathing treatment and was noted to have wheezing and increased work of breathing. Per [facility] staff Pt was last seen normal at 1145. 1155: Provider arrived to the room and Pt's gauze was to the left and she was holding her arms in the air and they were "shaking". Pt with equal pupils but without reaction to light. Also unable to respond to commands. Pt would not blink with movement towards eyes. NIH score 10. Tele monitor placed. Giselle Larsen called and Pt taken to CT scan. Pt noted to have work of breathing. Dr. Boucher and Dr. Jacobsen also to bedside, this appears to be metabolic in cause and not a CVA. CT scan brain negative for acute infract. Chest xray shows vascular congestion. Pt was transported to ICU, ABG obtained showing a Respiratory Acidosis. Pt was started on BiPAP. Family is at bedside. Discussed with Pt's daughter at bedside, and they would like trial intubation Family History: Unchanged from Admission Social History: Unchanged from Admission Past Medical History: Unchanged from Admission Objective Active Medications: Acetaminophen (Tylenol Tab*) 650 mg PO Q4H PRN Reason: FEVER/PAIN Albuterol/Ipratropium (Duoneb (Albuterol 2.5 Mg/Ipratropium 0.5 Mg)) 1 neb INH Q2H PRN Reason: SOB/WHEEZING Albuterol/Ipratropium (Duoneb (Albuterol 2.5 Mg/Ipratropium 0.5 Mg)) 1 neb INH 0100,0700,1300,1900 SHADI Amlodipine Besylate (Norvasc Tab*) 10 mg PO DAILY SHADI Atorvastatin Calcium (Lipitor*) 20 mg PO DAILY SHADI Calcium Carbonate (Tums*) 500 mg PO Q4H PRN Reason: INDIGESTION Docusate Sodium (Colace Cap*) 100 mg PO BID SHADI Fluoxetine HCl (Prozac Cap*) 20 mg PO DAILY [facility] Fluticasone Propionate (Flonase Nasal [place] 50mcg*) 1 spray BOTH NARES BID PRN Reason: allergies Furosemide (Lasix Iv*) 20 mg IV SLOW PU ONCE ONE Stop: 10/31/17 12:38 Guaifenesin (Robitussin*) 5 ml PO Q4H PRN Reason: COUGH Heparin Sodium (Porcine) (Heparin Vial(*)) 5,000 units SUBCUT Q8HR [facility] Sodium Chloride (Ns 0.9% 1000 Ml*) 1,000 mls @ 75 mls/hr IV PER RATE [facility] Azithromycin 500 mg/ Dextrose 250 mls @ 250 mls/hr IVPB Q24H [facility] Lactulose (Lactulose 300 Ml For Pr*) 200 gm MS DAILY PRN Reason: CONSTIPATION Levothyroxine Sodium (Synthroid Tab*) 75 mcg PO DAILY@0600 [facility] Methylprednisolone Sodium Succinate (Solu-Medrol 40 Mg) 40 mg IV Q8H [facility] Metoprolol Tartrate (Lopressor Tab*) 50 mg PO DAILY SHADI Omeprazole (Prilosec Cap*) 20 mg PO DAILY@0600 [facility] Prochlorperazine Edisylate (Compazine Inj*) 5 mg IV Q6H PRN Reason: NAUSEA/ VOMITING Timolol Maleate (Timoptic 0.5% Opth*) 1 drop RIGHT EYE 2100 [facility] Vital Signs - 8 hr 10/31/17 10/31/17 10/31/17 07:47 07:55 08:00 Temperature 98.4 F Pulse Rate 102 98 Respiratory 17 22 22 Rate Blood Pressure 140/62 (mmHg) O2 Sat by Pulse 98 96 Oximetry Oxygen Devices in Use Now: Nasal Cannula Appearance: Pt laying in bed and appears to be in respiratory distress Respiratory: Symmetrical Chest Expansion and Respiratory Effort, - - Lung sounds with exp wheezing and rhonchi bilateral Cardiovascular: NL Sounds; No Murmurs; No JVD, RRR Abdominal: NL Sounds; No Tenderness; No Distention Extremities: - - Mild bilateral LE edema Neurological: - - Alert, unable to determine orientation Lines/Tubes/Other Access: Clean, Dry and Intact PICC Line - Midline patent and site benign Result Diagrams: 10/31/17 05:24 10/31/17 05:24 Additional Lab and Data: Lab Results Laboratory Tests 10/31/17 12:25 ABG pH 7.08 L* ABG pCO2 76 H* ABG pO2 72 L ABG HCO3 17.9 L ABG O2 Saturation 93.8 L ABG Base Excess -8.8 L FiO2 5 Assess/Plan/Problems-Billing Assessment: Ms. Clement is an 86 yo female with PMH significant for COPD with chronic hypoxic respiratory failure who refuses home O2, Vit B12 def, HTN, hypothyroidism, breast CA, GERD, glaucoma, HLD, lymphedema, endometrial CA who presented to the emergency room with complaints of wheezing and not improving after being diagnosed with bronchitis and started on bactrim. - Patient Problems (1) Altered mental status Code(s): R41.82 - ALTERED MENTAL STATUS, UNSPECIFIED SNOMED Code(s): 937119599 Comment: - Suspect secondary to acute hypoxic/hypercabic respiratory failure with respiratory acidosis. Suspect respiratory acidosis is secondary to hypovenilation - Continue BiPAP (2) COPD exacerbation Code(s): J44.1 - CHRONIC OBSTRUCTIVE PULMONARY DISEASE W (ACUTE) EXACERBATION SNOMED Code(s): 409896485 Comment: - Secondary to bronchitis - Continue nebs (scheduled and PRN), azithromycin and solu-medrol (3) Chronic respiratory failure with hypoxia Comment: - Acute on chronic - Now with acute hypercarbic respiratory failure and respiratory acidosis - (4) Dehydration Code(s): E86.0 - DEHYDRATION SNOMED Code(s): 76040879 Comment: - Hold HCTZ and given gentle IVFs (5) Hyponatremia Code(s): E87.1 - HYPO-OSMOLALITY AND HYPONATREMIA SNOMED Code(s): 23851206 Comment: - Suspect secondary to HCTZ and dehydration - Will continue to hold Valsartan and HCTZ - Continue gentle IV hydration (6) Hypokalemia Code(s): E87.6 - HYPOKALEMIA SNOMED Code(s): 05123557 Comment: - Resolved (7) HTN (hypertension) Code(s): I10 - ESSENTIAL (PRIMARY) HYPERTENSION SNOMED Code(s): 78192470 Comment: - SBP 120-150s - Hold valsartan and HCTZ (8) GERD (gastroesophageal reflux disease) Code(s): K21.9 - GASTRO-ESOPHAGEAL REFLUX DISEASE WITHOUT ESOPHAGITIS SNOMED Code(s): 827773356 Comment: - Continue omeprazole (9) DVT prophylaxis Code(s): YEM1220 - SNOMED Code(s): 725285255 Comment: - SQ heparin (10) Full code status Code(s): Z78.9 - OTHER SPECIFIED HEALTH STATUS SNOMED Code(s): 963197912 Status and Disposition: Inpatient. Discharge to home when medically stable.
[2017-10-31] MEDS: NS 0.9% 1000 ML* 1,000 ML IV SCH (12:53)
--- NOTE | 2017-10-31 12:53 | RAD ---
HISTORY: Shortness of breath COMPARISONS: October 30, 2017 VIEWS: 1: frontal portable view of the chest at 12:20 PM FINDINGS: LINES AND TUBES: None. CARDIOMEDIASTINAL SILHOUETTE: The cardiomediastinal silhouette is normal for portable technique. PLEURA: The costophrenic angles are sharp. No pleural abnormalities are noted. LUNG PARENCHYMA: There is a diffuse reticular pattern of opacification. There is multifocal alveolar opacification of the upper lungs bilaterally ABDOMEN: The upper abdomen is clear. There is no subphrenic gas. BONES AND SOFT TISSUES: No bone or soft tissue abnormalities are noted. IMPRESSION: PATCHY CONSOLIDATION OF THE UPPER LUNGS BILATERALLY WITH STABLE CHRONIC APPEARING INTERSTITIAL CHANGES. RECOMMEND FOLLOW-UP UNTIL RESOLUTION TO EXCLUDE UNDERLYING PULMONARY PARENCHYMAL PATHOLOGY.
[2017-10-31] MEDS: Azithromycin IV(*) 500 MG in D5W 250 ML BAG* 250 ML IVPB SCH (13:20)
[2017-10-31 17:07] LABS: EGFR Non-African American 60.4 (>60)
[2017-10-31] MEDS: cefTRIAXone(*) 1 GM in NS 0.9% 50 ML* 50 ML IVPB SCH (17:29)
[2017-11-01 00:45] LABS: EGFR Non-African American 71.2 (>60)
[2017-11-01] MEDS: methylPREDNISolone SOD 40 MG* 1 ML VIAL IV SCH ×2 (01:51→10:51)
[2017-11-01] MEDS: Albuterol/Ipratropium NEB.SOL* Albuterol 2.5 MG/Ipratropium 0.5 MG 3 ML INH SCH ×4 (01:54→19:16)
[2017-11-01] MEDS: Omeprazole CAP* 20 MG PO SCH (05:18)
[2017-11-01] MEDS: Heparin VIAL(*) 5000 UNITS/ML VIAL (FIVE THOUSAND) SUBCUT SCH ×3 (05:18→21:10)
[2017-11-01] MEDS: Levothyroxine TAB* 75 MCG TAB PO SCH (05:18)
[2017-11-01 05:41] LABS: ABS Basophils 0 10^3/ul (0-0.2); ABS Eosinophils 0 10^3/ul (0-0.6); ABS Lymphocytes 0.9 10^3/ul (1.0-4.8); ABS Neutrophils 11.9 10^3/ul (1.5-7.7); ABS Nucleated RBC 0 10^3/ul; Eosinophil % 0.1 % (0-6); Hematocrit 36 % (35-47); Hemoglobin 12.2 g/dl (12.0-16.0); Lymphocyte % 6.5 % (25-47); Mean Corpuscular HGB Conc 34 g/dl (31-36); Mean Corpuscular Hemoglobin 29 pg (27-31); Mean Corpuscular Volume 86 fL (80-97); Mean Platelet Volume 8 um3 (7.4-10.4); Nucleated Red Blood Cells % 0.1; Platelet Count 228 10^3/ul (150-450); Red Blood Count 4.15 10^6/ul (4.0-5.4); Red Cell Distribution Width 14 % (10.5-15); White Blood Count 13.8 10^3/ul (3.5-10.8)
[2017-11-01 05:51] LABS: EGFR Non-African American 82.2 (>60)
--- NOTE | 2017-11-01 08:41 | PN ---
Subjective Date of Service: 11/01/17 Interval History: Patient seen and examined at bedside. Denies fever, chills, chest discomfort, N/ V/D. Pt still has some shortness of breath and has a moist non-productive cough. Pt states that she is feeling much better today then yesterday, she is also more awake then yesterday. Pt was able to be weaned off the BiPAP after 1 hour yesterday. Tele: Sinus rhythm, rate 70-90's. Family History: Unchanged from Admission Social History: Unchanged from Admission Past Medical History: Unchanged from Admission Objective Active Medications: Acetaminophen (Tylenol Tab*) 650 mg PO Q4H PRN Reason: FEVER/PAIN Albuterol/Ipratropium (Duoneb (Albuterol 2.5 Mg/Ipratropium 0.5 Mg)) 1 neb INH Q2H PRN Reason: SOB/WHEEZING Albuterol/Ipratropium (Duoneb (Albuterol 2.5 Mg/Ipratropium 0.5 Mg)) 1 neb INH 0100,0700,1300,1900 [facility] Amlodipine Besylate (Norvasc Tab*) 10 mg PO DAILY [facility] Atorvastatin Calcium (Lipitor*) 20 mg PO DAILY [facility] Calcium Carbonate (Tums*) 500 mg PO Q4H PRN Reason: INDIGESTION Docusate Sodium (Colace Cap*) 100 mg PO BID [facility] Fluoxetine HCl (Prozac Cap*) 20 mg PO DAILY [facility] Fluticasone Propionate (Flonase Nasal [place] 50mcg*) 1 spray BOTH NARES BID PRN Reason: allergies Guaifenesin (Robitussin*) 5 ml PO Q4H PRN Reason: COUGH Heparin Sodium (Porcine) (Heparin Vial(*)) 5,000 units SUBCUT Q8HR SHADI Azithromycin 500 mg/ Dextrose 250 mls @ 250 mls/hr IVPB Q24H [facility] Ceftriaxone Sodium 1 gm/ (Sodium Chloride) 50 mls @ 200 mls/hr IVPB Q24H [facility] Lactulose (Lactulose 300 Ml For Pr*) 200 gm [place] DAILY PRN Reason: CONSTIPATION Levothyroxine Sodium (Synthroid Tab*) 75 mcg PO DAILY@0600 [facility] Methylprednisolone Sodium Succinate (Solu-Medrol 40 Mg) 40 mg IV Q8H SH[facility] Metoprolol Tartrate (Lopressor Tab*) 50 mg PO DAILY [facility] Omeprazole (Prilosec Cap*) 20 mg PO DAILY@0600 [facility] Prochlorperazine Edisylate (Compazine Inj*) 5 mg IV Q6H PRN Reason: NAUSEA/ VOMITING Timolol Maleate (Timoptic 0.5% Opth*) 1 drop RIGHT EYE 2100 [facility] Vital Signs - 8 hr 11/01/17 11/01/17 11/01/17 01:00 01:30 02:00 Temperature Pulse Rate 85 71 73 Respiratory 19 17 17 Rate Blood Pressure 151/66 141/60 95/66 (mmHg) O2 Sat by Pulse 92 93 94 Oximetry 11/01/17 11/01/17 11/01/17 02:31 03:00 03:31 Temperature Pulse Rate 85 71 83 Respiratory 22 20 20 Rate Blood Pressure 139/67 139/62 145/62 (mmHg) O2 Sat by Pulse 91 93 93 Oximetry 11/01/17 11/01/17 11/01/17 04:00 04:30 05:00 Temperature Pulse Rate 90 83 80 Respiratory 23 15 22 Rate Blood Pressure 143/78 148/79 152/59 (mmHg) O2 Sat by Pulse 97 95 94 Oximetry 11/01/17 11/01/17 11/01/17 05:31 06:00 07:38 Temperature 96.2 F Pulse Rate 88 80 Respiratory 22 17 Rate Blood Pressure 152/68 143/63 (mmHg) O2 Sat by Pulse 96 96 Oximetry Oxygen Devices in Use Now: Nasal Cannula - 3L Appearance: NAD, sitting up in bed Ears/Nose/Mouth/Throat: Mucous Membranes Moist Respiratory: Symmetrical Chest Expansion and Respiratory Effort, - - Lung sounds with rhonchi and exp wheezing Cardiovascular: NL Sounds; No Murmurs; No JVD, RRR Abdominal: NL Sounds; No Tenderness; No Distention Extremities: - - Mild bilateral LE edema Skin: No Rash or Ulcers Neurological: Alert and Oriented x 3, NL Muscle Strength and Tone Lines/Tubes/Other Access: Clean, Dry and Intact Valdes - patent, draining clear yellow urine, Clean, Dry and Intact PICC Line - Midline, site benign Nutrition: Taking PO's Result Diagrams: 11/01/17 05:25 11/01/17 05:25 Additional Lab and Data: Lab Results Laboratory Tests 10/31/17 12:25 ABG pH 7.08 L* ABG pCO2 76 H* ABG pO2 72 L ABG HCO3 17.9 L ABG O2 Saturation 93.8 L ABG Base Excess -8.8 L FiO2 5 Laboratory Tests 10/31/17 13:57 ABG pH 7.36 ABG pCO2 38 ABG pO2 110 H ABG HCO3 22.1 ABG O2 Saturation 99.4 H ABG Base Excess -3.6 L Respiration Rate 14 FiO2 40 EPAP 6 IPAP 12 BiPAP s/t Microbiology and Other Data: Microbiology 10/31/17 17:37 Legionella Urinary Antigen - Final Urine Negative Legionella Streptococcus pneumoniae Ag Screen - Final Negative S. pneumo Antigen Assess/Plan/Problems-Billing Assessment: Ms. Clement is an 86 yo female with PMH significant for COPD with chronic hypoxic respiratory failure who refuses home O2, Vit B12 def, HTN, hypothyroidism, breast CA, GERD, glaucoma, HLD, lymphedema, endometrial CA who presented to the emergency room with complaints of wheezing and not improving after being diagnosed with bronchitis and started on bactrim. - Patient Problems (1) Pneumonia Code(s): J18.9 - PNEUMONIA, UNSPECIFIED ORGANISM SNOMED Code(s): 367093788 Comment: - Chest xray with patchy consolidation in bilateral upper lobes - Pt also appeared to have vascular congestion and received a dose of IV lasix - Afebrile and leukocytosis - Blood cultures, no growth day 2 - Urine antigens for legionella and S. pneumo negative - Sputum culture, pending - Continue azithromycin and ceftriaxone (2) Altered mental status Code(s): R41.82 - ALTERED MENTAL STATUS, UNSPECIFIED SNOMED Code(s): 793341521 Comment: - Resolved - Suspect secondary to acute hypoxic/hypercabic respiratory failure with respiratory acidosis. Suspect respiratory acidosis is secondary to hypovenilation (3) COPD exacerbation Code(s): J44.1 - CHRONIC OBSTRUCTIVE PULMONARY DISEASE W (ACUTE) EXACERBATION SNOMED Code(s): 934596260 Comment: - Secondary to bronchitis/PNA - Continue nebs (scheduled and PRN), azithromycin and solu-medrol (4) Chronic respiratory failure with hypoxia Comment: - Acute on chronic, improving - Acute hypercarbic respiratory failure, resolved (5) Dehydration Code(s): E86.0 - DEHYDRATION SNOMED Code(s): 68068929 Comment: - Hold HCTZ and given gentle IVFs (6) Hyponatremia Code(s): E87.1 - HYPO-OSMOLALITY AND HYPONATREMIA SNOMED Code(s): 73579313 Comment: - Suspect secondary to HCTZ and dehydration - Will continue to hold Valsartan and HCTZ - NA was trending down with NS, now slowly improving without IVFs - Urine osm, serum osm and urine sodium 68 (7) Hypokalemia Code(s): E87.6 - HYPOKALEMIA SNOMED Code(s): 28113643 Comment: - Resolved (8) HTN (hypertension) Code(s): I10 - ESSENTIAL (PRIMARY) HYPERTENSION SNOMED Code(s): 42151285 Comment: - SBP 140-150s - Hold HCTZ and valsartan (9) GERD (gastroesophageal reflux disease) Code(s): K21.9 - GASTRO-ESOPHAGEAL REFLUX DISEASE WITHOUT ESOPHAGITIS SNOMED Code(s): 176850743 Comment: - Continue omeprazole (10) DVT prophylaxis Code(s): VBN1495 - SNOMED Code(s): 735198759 Comment: - SQ heparin (11) Full code status Code(s): Z78.9 - OTHER SPECIFIED HEALTH STATUS SNOMED Code(s): 957055583 Status and Disposition: Inpatient. Discharge to home when medically stable.
[2017-11-01] MEDS: amLODIPine TAB* 5 MG PO SCH (08:43)
[2017-11-01] MEDS: Metoprolol Tartrate TAB* 50 mg PO SCH (08:44)
[2017-11-01] MEDS: Docusate CAP* 100 MG PO SCH ×2 (08:44→21:09)
[2017-11-01] MEDS: Atorvastatin* 20 MG TAB PO SCH (08:44)
[2017-11-01] MEDS: FLUoxetine CAP* 20 MG PO SCH (08:44)
--- NOTE | 2017-11-01 10:07 | ECHO ---
Patient: ADRIAN VASQUEZ [facility] Rec#: [id number] : 1930 Date: 11/01/2017 Age: 87y Height: 147.32 cm / 58.0 in Weight: 66.22 kg / 145.9 lbs Sex: F BSA: 1.59 Room#: [facility]6 Admit Date#: 10/30/2017 Type: Inpatient Referring: Eun Monte NP Reading: Bart Baer MD Materials Development Engineer: Eun Lee RDCS CC: Jaqui Gutierres MD Transthoracic Echocardiogram Indication: AMS, elevated troponin level BP: 143/63 HR: 90 Rhythm: NSR with PACs Findings History: COPD, chronic hypoxic respiratory failure, HTN, breast cancer, lymphedema, HLD, endometrial cancer. Technical Comments: The study quality is good. Completed at 0830. Left Ventricle: The left ventricular chamber size is decreased. Mild concentric left ventricular hypertrophy is observed. Global left ventricular wall motion and contractility are within normal limits. There is normal left ventricular systolic function. The estimated ejection fraction is 55-60%. There is no consistent Doppler evidence of clinically significant diastolic dysfunction. Left Atrium: The left atrium is mildly dilated. Right Ventricle: The right ventricular cavity size is normal. Right Atrium: The right atrial cavity size is normal. Aortic Valve: The aortic valve is trileaflet. The aortic valve leaflets are mildly thickened. Systolic excursion of the aortic valve cusps is reduced. There is a trace of aortic regurgitation. There is mild aortic stenosis. The mean gradient of the aortic valve is 10.77 mmHg. The peak instantaneous gradient of the aortic valve is 18.28 mmHg. The aortic valve area, by peak velocities, is calculated at 1.3 cm2. The aortic valve area, by VTI's, is calculated at 1.5 cm2. Mitral Valve: There is mitral annular calcification. The mitral valve leaflets are mildly thickened. There is mild mitral regurgitation. There is no evidence of mitral stenosis. Tricuspid Valve: The tricuspid valve leaflets are normal. There is moderate to severe tricuspid regurgitation. The right ventricular systolic pressure is estimated at 64 mmHg. There is evidence of moderate to severe pulmonary hypertension. There is no tricuspid stenosis. Pulmonic Valve: The pulmonic valve appears normal. There is no evidence of pulmonic regurgitation. There is no pulmonic stenosis. Pericardium: There is no significant pericardial effusion. Aorta: There is no dilatation of the ascending aorta. There is no dilatation of the aortic arch. The aortic root is normal in size. Pulmonary Artery: The main pulmonary artery is not well visualized. Venous: The inferior vena cava appears normal in size. There is a greater than 50% respiratory change in the inferior vena cava dimension. Conclusions Global left ventricular wall motion and contractility are within normal limits. There is normal left ventricular systolic function. The estimated ejection fraction is 55-60%. There is mild aortic stenosis. The mean gradient of the aortic valve is 10.77 mmHg. There is mild mitral regurgitation. There is moderate to severe tricuspid regurgitation. There is evidence of moderate to severe pulmonary hypertension. There is no significant pericardial effusion. Compared to study of 05/2317, the LV function is the same. The mild is new. The severe TR and pulmonary HTN is new Measurements Name Value Normal Range RVIDd (AP) 2D 2.2 cm (0.9 - 2.6) RVDdMajor (2D) 4.2 cm (2.2 - 4.4) RAd ISD 4CH 4.8 cm (3.4 - 4.9) RA (A4C)W 4 cm (2.9 - 4.6) IVSd (2D) 1.1 cm (0.6 - 1) LVPWd (2D) 1.2 cm (0.6 - 1) LVIDd (2D) 3.5 cm (3.6 - 5.4) LVIDs (2D) 2.2 cm - LV FS (2D) 36 % (25 - 45) Aortic Annulus 1.8 cm (1.4 - 2.6) Ao root diameter (2D) 2.5 cm (2.1 - 3.5) Ascending Ao 2.5 cm (2.1 - 3.4) Aortic arch 1.7 cm (1.8 - 3.4) LA dimension (AP) 2D 3.4 cm (2.3 - 3.8) LAd ISD 4CH 5.1 cm (2.9 - 5.3) LA ISD 4CH W 4 cm (2.5 - 4.5) Name Value Normal Range LA ESV SP 4CH (A/L) 55 ml - LA ESV SP 2CH (A/L) 65 ml - LA ESV BP (A/L) 61 ml - LA ESV BP (A/L) index 38 ml/m2 - LA ESV SP 4CH (MOD) 51 ml - LA ESV SP 2CH (MOD) 62 ml - Name Value Normal Range MV E-wave Vmax 0.88 m/sec - MV deceleration time 147.9 msec - MV A-wave Vmax 1.08 m/sec - MV E:A ratio 0.81 ratio - LV septal e' Vmax 0.1 m/sec - LV lateral e' Vmax 0.1 m/sec - LV E:e' septal ratio 8.8 ratio - LV E:e' lateral ratio 8.8 ratio - Name Value Normal Range AV Vmax 2.4 m/sec - AV VTI 52.6 cm - AV peak gradient 18.28 mmHg - AV mean gradient 10.77 mmHg - LVOT diameter 2 cm - LVOT Vmax 1 m/sec - LVOT VTI 25.2 cm - LVOT peak gradient 4 mmHg - LVOT mean gradient 2.37 mmHg - DOI (VTI) 0.48 ratio - ALICE (continuity Vmax) 1.3 cm2 - ALICE (continuity VTI) 1.5 cm2 - LEONEL Vmax 0.75 m/sec - Name Value Normal Range TR Vmax 3.9 m/sec - TR peak gradient 61 mmHg - RAP 3 mmHg - RVSP 64 mmHg - IVC diameter 1.8 cm - Name Value Normal Range PV Vmax 1.04 m/sec - PV peak gradient 4.37 mmHg -
[2017-11-01] MEDS: Azithromycin IV(*) 500 MG in D5W 250 ML BAG* 250 ML IVPB SCH (10:51)
[2017-11-01] MEDS: guaiFENesin LIQ* 100 MG/5 ML UDC PO PRN ×2 (13:39→21:10)
[2017-11-01] MEDS ORDERED: Spiriva Inhaler DEVICE* 1 EACH DEVICE SCH ×2 (18:00→20:00)
[2017-11-01] MEDS: cefTRIAXone(*) 1 GM in NS 0.9% 50 ML* 50 ML IVPB SCH (18:31)
[2017-11-01] MEDS: Aspirin EC Low Dose* 81 MG TAB.EC PO SCH (18:31)
[2017-11-01] MEDS ORDERED: Ipratropium 0.5MG/2.5ML NEB* 0.5 MG/2.5 ML NEB.SOLN INH PRN (19:16)
[2017-11-01] MEDS: Mometasone/Formoter 200/5 MDI INH SCH (20:04)
[2017-11-01] MEDS ORDERED: Mometasone/Formoter 200/5 MDI INH SCH (21:00)
[2017-11-01] MEDS ORDERED: Mometasone/Formoter 100/5 MDI INH SCH (21:00)
[2017-11-01] MEDS: Montelukast Sodium TAB* 5 MG PO SCH (21:09)
[2017-11-01] MEDS: DOXYcycline CAP(*) 100 MG PO SCH (21:09)
[2017-11-01] MEDS: Timolol 0.5% OPTH.SOL* BTL RIGHT EYE SCH (21:09)
[2017-11-02] MEDS: Heparin VIAL(*) 5000 UNITS/ML VIAL (FIVE THOUSAND) SUBCUT SCH ×3 (06:33→22:18)
[2017-11-02] MEDS: Levothyroxine TAB* 75 MCG TAB PO SCH (06:34)
[2017-11-02] MEDS: Omeprazole CAP* 20 MG PO SCH (06:34)
[2017-11-02 07:50] LABS: ABS Basophils 0 10^3/ul (0-0.2); ABS Eosinophils 0 10^3/ul (0-0.6); ABS Lymphocytes 1.5 10^3/ul (1.0-4.8); ABS Monocytes 1.3 10^3/ul (0-0.8); ABS Neutrophils 7.9 10^3/ul (1.5-7.7); ABS Nucleated RBC 0 10^3/ul; Eosinophil % 0.1 % (0-6); Hematocrit 35 % (35-47); Hemoglobin 12.3 g/dl (12.0-16.0); Mean Corpuscular HGB Conc 35 g/dl (31-36); Mean Corpuscular Hemoglobin 30 pg (27-31); Mean Corpuscular Volume 86 fL (80-97); Mean Platelet Volume 9 um3 (7.4-10.4); Nucleated Red Blood Cells % 0; Platelet Count 227 10^3/ul (150-450); Red Blood Count 4.09 10^6/ul (4.0-5.4); Red Cell Distribution Width 15 % (10.5-15); White Blood Count 10.7 10^3/ul (3.5-10.8)
[2017-11-02] MEDS: Mometasone/Formoter 200/5 MDI INH SCH ×2 (08:04→20:10)
[2017-11-02] MEDS: Tiotropium CAP.INH* CAP.INH/18 MCG (USE ORDER SET !) INH SCH (08:05)
[2017-11-02] MEDS ORDERED: Potassium Chlor TAB* 20 MEQ TAB.ER PO ONE ×2 (08:18→17:27)
--- NOTE | 2017-11-02 08:41 | PN ---
Subjective Date of Service: 11/02/17 Interval History: Patient seen and examined at bedside. Denies fever, chills, shortness of breath , chest discomfort, N/V/D. Pt states that she continues to feel better. Tele: Sinus rhythm, rate 60-70's. Family History: Unchanged from Admission Social History: Unchanged from Admission Past Medical History: Unchanged from Admission Objective Active Medications: Acetaminophen (Tylenol Tab*) 650 mg PO Q4H PRN Reason: FEVER/PAIN Amlodipine Besylate (Norvasc Tab*) 10 mg PO DAILY [facility] Aspirin (Aspirin Ec Low Dose*) 81 mg PO DAILY [facility] Atorvastatin Calcium (Lipitor*) 20 mg PO DAILY [facility] Calcium Carbonate (Tums*) 500 mg PO Q4H PRN Reason: INDIGESTION Docusate Sodium (Colace Cap*) 100 mg PO BID SHADI Doxycycline Hyclate (Vibramycin Cap(*)) 100 mg PO BID [facility] Fluoxetine HCl (Prozac Cap*) 20 mg PO DAILY [facility] Fluticasone Propionate (Flonase Nasal [place] 50mcg*) 1 spray BOTH NARES BID PRN Reason: allergies Guaifenesin (Robitussin*) 5 ml PO Q4H PRN Reason: COUGH Heparin Sodium (Porcine) (Heparin Vial(*)) 5,000 units SUBCUT Q8HR [facility] Ceftriaxone Sodium 1 gm/ (Sodium Chloride) 50 mls @ 200 mls/hr IVPB Q24H [facility] Ipratropium [place] (Atrovent 0.5 Mg Neb.Bonnie*) 0.5 mg INH Q6H PRN Reason: SOB/ WHEEZING Lactulose (Lactulose 300 Ml For Pr*) 200 gm [place] DAILY PRN Reason: CONSTIPATION Levothyroxine Sodium (Synthroid Tab*) 75 mcg PO DAILY@0600 [facility] Metoprolol Tartrate (Lopressor Tab*) 50 mg PO DAILY [facility] Mometasone Furoate/Formoterol Fumar (Dulera 200/5 Mdi*) 2 puff INH BID SHADI Montelukast Sodium (Singulair Tab*) 5 mg PO BEDTIME [facility] Omeprazole (Prilosec Cap*) 20 mg PO DAILY@0600 [facility] Prednisone (Deltasone Tab*) 50 mg PO DAILY [facility] Timolol Maleate (Timoptic 0.5% Opth*) 1 drop RIGHT EYE 2100 [facility] Tiotropium [place] (Spiriva Cap.Inh*) 1 cap INH DAILY [facility] Vital Signs - 8 hr 11/02/17 11/02/17 11/02/17 01:00 01:01 01:05 Temperature Pulse Rate 69 63 66 Respiratory 14 14 19 Rate Blood Pressure 121/51 (mmHg) O2 Sat by Pulse 100 100 100 Oximetry 11/02/17 11/02/17 11/02/17 01:31 02:00 03:00 Temperature Pulse Rate 83 72 71 Respiratory 18 17 17 Rate Blood Pressure 151/63 126/55 (mmHg) O2 Sat by Pulse 98 100 100 Oximetry 11/02/17 11/02/17 11/02/17 03:02 04:00 04:01 Temperature 96.8 F Pulse Rate 74 70 65 Respiratory 17 23 24 Rate Blood Pressure 162/64 160/60 (mmHg) O2 Sat by Pulse 100 100 100 Oximetry 11/02/17 11/02/17 11/02/17 05:00 05:01 06:00 Temperature Pulse Rate 67 64 66 Respiratory 15 14 15 Rate Blood Pressure 150/67 133/74 (mmHg) O2 Sat by Pulse 100 100 100 Oximetry 11/02/17 11/02/17 07:00 08:05 Temperature Pulse Rate 73 66 Respiratory 15 12 Rate Blood Pressure (mmHg) O2 Sat by Pulse 100 99 Oximetry Oxygen Devices in Use Now: Nasal Cannula - 3L Appearance: NAD, laying in bed Ears/Nose/Mouth/Throat: Mucous Membranes Moist Respiratory: Symmetrical Chest Expansion and Respiratory Effort, Clear to Auscultation - , diminished Cardiovascular: NL Sounds; No Murmurs; No JVD, RRR Abdominal: NL Sounds; No Tenderness; No Distention Extremities: - - Trace bilateral LE edema Skin: No Rash or Ulcers Neurological: Alert and Oriented x 3, NL Muscle Strength and Tone Lines/Tubes/Other Access: Clean, Dry and Intact Valdes - patent, drainin clear yellow urine, Clean, Dry and Intact Peripheral IV - site benign Nutrition: Taking PO's Result Diagrams: 11/02/17 06:44 11/02/17 06:44 Additional Lab and Data: Lab Results Laboratory Tests 10/31/17 12:25 ABG pH 7.08 L* ABG pCO2 76 H* ABG pO2 72 L ABG HCO3 17.9 L ABG O2 Saturation 93.8 L ABG Base Excess -8.8 L FiO2 5 Laboratory Tests 10/31/17 13:57 ABG pH 7.36 ABG pCO2 38 ABG pO2 110 H ABG HCO3 22.1 ABG O2 Saturation 99.4 H ABG Base Excess -3.6 L Respiration Rate 14 FiO2 40 EPAP 6 IPAP 12 BiPAP s/t Microbiology and Other Data: Microbiology 10/31/17 17:37 Legionella Urinary Antigen - Final Urine Negative Legionella Streptococcus pneumoniae Ag Screen - Final Negative S. pneumo Antigen Assess/Plan/Problems-Billing Assessment: Ms. Clement is an 86 yo female with PMH significant for COPD with chronic hypoxic respiratory failure who refuses home O2, Vit B12 def, HTN, hypothyroidism, breast CA, GERD, glaucoma, HLD, lymphedema, endometrial CA who presented to the emergency room with complaints of wheezing and not improving after being diagnosed with bronchitis and started on bactrim. - Patient Problems (1) Pneumonia Code(s): J18.9 - PNEUMONIA, UNSPECIFIED ORGANISM SNOMED Code(s): 429392401 Comment: - Chest xray with patchy consolidation in bilateral upper lobes - Pt also appeared to have vascular congestion and received a dose of IV lasix - Afebrile and leukocytosis - Blood cultures, no growth day 3 - Urine antigens for legionella and S. pneumo negative - Sputum culture, pending - Continue doxcycline and ceftriaxone (2) Altered mental status Code(s): R41.82 - ALTERED MENTAL STATUS, UNSPECIFIED SNOMED Code(s): 541920189 Comment: - Resolved - Suspect secondary to acute hypoxic/hypercabic respiratory failure with respiratory acidosis. Suspect respiratory acidosis is secondary to hypovenilation (3) COPD exacerbation Code(s): J44.1 - CHRONIC OBSTRUCTIVE PULMONARY DISEASE W (ACUTE) EXACERBATION SNOMED Code(s): 631901463 Comment: - Secondary to bronchitis/PNA - Continue nebs (scheduled and PRN), doxcycline and prednisone (4) Chronic respiratory failure with hypoxia Comment: - Acute on chronic, improving - Acute hypercarbic respiratory failure, resolved (5) Dehydration Code(s): E86.0 - DEHYDRATION SNOMED Code(s): 62525878 Comment: - Hold HCTZ and given gentle IVFs (6) Hyponatremia Code(s): E87.1 - HYPO-OSMOLALITY AND HYPONATREMIA SNOMED Code(s): 83366174 Comment: - Suspect secondary to HCTZ and dehydration - Will continue to hold HCTZ - NA was trending down with NS, now slowly improving without IVFs - Urine osm, serum osm and urine sodium 68 (7) Hypokalemia Code(s): E87.6 - HYPOKALEMIA SNOMED Code(s): 10983833 Comment: - K+ 3.3 today, will give replacement and recheck in the AM (8) HTN (hypertension) Code(s): I10 - ESSENTIAL (PRIMARY) HYPERTENSION SNOMED Code(s): 15921638 Comment: - SBP 120-160s - Hold HCTZ and resume valsartan (9) GERD (gastroesophageal reflux disease) Code(s): K21.9 - GASTRO-ESOPHAGEAL REFLUX DISEASE WITHOUT ESOPHAGITIS SNOMED Code(s): 913753831 Comment: - Continue omeprazole (10) DVT prophylaxis Code(s): [id number] - SNOMED Code(s): 141741139 Comment: - SQ heparin (11) Full code status Code(s): Z78.9 - OTHER SPECIFIED HEALTH STATUS SNOMED Code(s): 918610498 Status and Disposition: Inpatient. Discharge to home when medically stable, suspect she will be ready in 1-2 days.
[2017-11-02] MEDS ORDERED: Tiotropium CAP.INH* CAP.INH/18 MCG (USE ORDER SET !) INH SCH (09:00)
[2017-11-02] MEDS: Docusate CAP* 100 MG PO SCH ×2 (09:19→22:16)
[2017-11-02] MEDS: amLODIPine TAB* 5 MG PO SCH (09:19)
[2017-11-02] MEDS: FLUoxetine CAP* 20 MG PO SCH (09:19)
[2017-11-02] MEDS: Metoprolol Tartrate TAB* 50 mg PO SCH (09:19)
[2017-11-02] MEDS: Atorvastatin* 20 MG TAB PO SCH (09:19)
[2017-11-02] MEDS: DOXYcycline CAP(*) 100 MG PO SCH ×2 (09:19→22:16)
[2017-11-02] MEDS: Aspirin EC Low Dose* 81 MG TAB.EC PO SCH (09:19)
[2017-11-02] MEDS: predniSONE TAB* 50 MG PO SCH (09:21)
[2017-11-02] MEDS: cefTRIAXone(*) 1 GM in NS 0.9% 50 ML* 50 ML IVPB SCH (17:18)
[2017-11-02] MEDS: Timolol 0.5% OPTH.SOL* BTL RIGHT EYE SCH (22:13)
[2017-11-02] MEDS: Valsartan TAB* 40 MG PO SCH (22:16)
[2017-11-02] MEDS: Montelukast Sodium TAB* 5 MG PO SCH (22:16)
[2017-11-02] MEDS: guaiFENesin LIQ* 100 MG/5 ML UDC PO PRN (22:19)
--- NOTE | 2017-11-03 00:49 | EEG ---
ELECTROENCEPHALOGRAPHY: DATE OF STUDY: 10/31/17 LOCATION: The patient is an inpatient. ORDERING PROVIDER: Eun Iqbal NP CLINICAL PROBLEM: This is an 87-year-old woman, who was admitted on 10/30/17 and began having increased shortness of breath on 10/31/17 around 11:30. A respiratory therapist was called and upon his arrival, the patient reportedly had bilateral eye deviation to the left with bilateral extension of her arms. Code patel was initiated for a sudden change in mental status and she was subsequently placed in the ICU on BiPAP. EEG is requested to evaluate for epileptiform abnormalities. MEDICATIONS: None listed. REPORT: The waking background consisted of significant muscle artifact and overall was a low voltage recording, which can be a normal variant. At times, there was an apparent posterior rhythm of approximately 8 Hz, which was not very well defined. Anteriorly, there was the expected pattern of lower voltage, irregular, mixed faster frequencies. Photic stimulation and hyperventilation were not performed. The patient did not become significantly drowsy during the study. Throughout the recording, there were no epileptiform discharges, focal features , paroxysmal features, or significant interhemispheric asymmetries. CLINICAL IMPRESSION: This is an essentially normal waking EEG. The background does consist of a rather low voltage, nondescript pattern, but this can be seen as a normal variant. There are no focal asymmetries or epileptiform abnormalities. [id number]/[facility] #: [id number] [facility]
[2017-11-03] MEDS: Levothyroxine TAB* 75 MCG TAB PO SCH (05:41)
[2017-11-03] MEDS: Omeprazole CAP* 20 MG PO SCH (05:41)
[2017-11-03] MEDS: Heparin VIAL(*) 5000 UNITS/ML VIAL (FIVE THOUSAND) SUBCUT SCH ×3 (05:43→21:41)
[2017-11-03 06:56] LABS: EGFR Non-African American 88.2 (>60)
[2017-11-03] MEDS: Mometasone/Formoter 200/5 MDI INH SCH ×2 (08:26→19:22)
[2017-11-03] MEDS: Tiotropium CAP.INH* CAP.INH/18 MCG (USE ORDER SET !) INH SCH (08:26)
[2017-11-03] MEDS: Docusate CAP* 100 MG PO SCH ×2 (09:13→21:40)
[2017-11-03] MEDS: Valsartan TAB* 40 MG PO SCH ×2 (09:13→21:39)
[2017-11-03] MEDS: Metoprolol Tartrate TAB* 50 mg PO SCH (09:13)
[2017-11-03] MEDS: Atorvastatin* 20 MG TAB PO SCH (09:13)
[2017-11-03] MEDS: amLODIPine TAB* 5 MG PO SCH (09:13)
[2017-11-03] MEDS: DOXYcycline CAP(*) 100 MG PO SCH ×2 (09:13→21:40)
[2017-11-03] MEDS: Aspirin EC Low Dose* 81 MG TAB.EC PO SCH (09:13)
[2017-11-03] MEDS: predniSONE TAB* 50 MG PO SCH (09:13)
[2017-11-03] MEDS: FLUoxetine CAP* 20 MG PO SCH (09:13)
[2017-11-03] MEDS: cefTRIAXone(*) 1 GM in NS 0.9% 50 ML* 50 ML IVPB SCH (17:39)
--- NOTE | 2017-11-03 19:45 | PN ---
Subjective Date of Service: 11/03/17 Interval History: Patient seen and examined at bedside. Pt states that she is feeling well today, but has not been ambulating more than to the bathroom. Denies fever, chills, shortness of breath, chest discomfort, N/V/D. Pt reports tongue and "gum" discomfort. Tele: Sinus rhythm, rate 60-80's Family History: Unchanged from Admission Social History: Unchanged from Admission Past Medical History: Unchanged from Admission Objective Active Medications: Acetaminophen (Tylenol Tab*) 650 mg PO Q4H PRN Reason: FEVER/PAIN Amlodipine Besylate (Norvasc Tab*) 10 mg PO DAILY [facility] Aspirin (Aspirin Ec Low Dose*) 81 mg PO DAILY [facility] Atorvastatin Calcium (Lipitor*) 20 mg PO DAILY [facility] Calcium Carbonate (Tums*) 500 mg PO Q4H PRN Reason: INDIGESTION Docusate Sodium (Colace Cap*) 100 mg PO BID [facility] Doxycycline Hyclate (Vibramycin Cap(*)) 100 mg PO BID [facility] Fluoxetine HCl (Prozac Cap*) 20 mg PO DAILY [facility] Fluticasone Propionate (Flonase Nasal [place] 50mcg*) 1 spray BOTH NARES BID PRN Reason: allergies Guaifenesin (Robitussin*) 5 ml PO Q4H PRN Reason: COUGH Heparin Sodium (Porcine) (Heparin Vial(*)) 5,000 units SUBCUT Q8HR [facility] Heparin Sodium (Porcine) (Heparin Flush Picc/Ml/Cvc(*)) 1 - 3 ml FLUSH 0600, 1800 [facility] Ceftriaxone Sodium 1 gm/ (Sodium Chloride) 50 mls @ 200 mls/hr IVPB Q24H [facility] Ipratropium [place] (Atrovent 0.5 Mg Neb.Bonnie*) 0.5 mg INH Q6H PRN Reason: SOB/ WHEEZING Lactulose (Lactulose 300 Ml For Pr*) 200 gm [place] DAILY PRN Reason: CONSTIPATION Levothyroxine Sodium (Synthroid Tab*) 75 mcg PO DAILY@0600 [facility] Metoprolol Tartrate (Lopressor Tab*) 50 mg PO DAILY [facility] Mometasone Furoate/Formoterol Fumar (Dulera 200/5 Mdi*) 2 puff INH BID [facility] Montelukast Sodium (Singulair Tab*) 5 mg PO BEDTIME [facility] Omeprazole (Prilosec Cap*) 20 mg PO DAILY@0600 [facility] Prednisone (Deltasone Tab*) 50 mg PO DAILY [facility] Timolol Maleate (Timoptic 0.5% Opth*) 1 drop RIGHT EYE 2100 [facility] Tiotropium [place] (Spiriva Cap.Inh*) 1 cap INH DAILY [facility] Valsartan (Diovan Tab*) 40 mg PO BID [facility] Vital Signs - 8 hr 11/03/17 11/03/17 11/03/17 11:48 14:00 15:15 Temperature 97.4 F 97.5 F 97.2 F Pulse Rate 70 70 71 Respiratory 20 24 18 Rate Blood Pressure 141/58 158/70 135/69 (mmHg) O2 Sat by Pulse 96 97 97 Oximetry 11/03/17 16:00 Temperature Pulse Rate Respiratory Rate Blood Pressure (mmHg) O2 Sat by Pulse 97 Oximetry Oxygen Devices in Use Now: None Appearance: NAD, sitting up in bed Ears/Nose/Mouth/Throat: Mucous Membranes Moist, - - "White patches on the roof of mouth Respiratory: Symmetrical Chest Expansion and Respiratory Effort, Clear to Auscultation - , diminished with few exp wheezes Cardiovascular: NL Sounds; No Murmurs; No JVD, RRR Abdominal: NL Sounds; No Tenderness; No Distention Extremities: No Edema Skin: No Rash or Ulcers Neurological: Alert and Oriented x 3, NL Muscle Strength and Tone Lines/Tubes/Other Access: Clean, Dry and Intact PICC Line - Midline, site benign Nutrition: Taking PO's Result Diagrams: 11/02/17 06:44 11/03/17 06:30 Additional Lab and Data: Lab Results Laboratory Tests 10/31/17 12:25 ABG pH 7.08 L* ABG pCO2 76 H* ABG pO2 72 L ABG HCO3 17.9 L ABG O2 Saturation 93.8 L ABG Base Excess -8.8 L FiO2 5 Laboratory Tests 10/31/17 13:57 ABG pH 7.36 ABG pCO2 38 ABG pO2 110 H ABG HCO3 22.1 ABG O2 Saturation 99.4 H ABG Base Excess -3.6 L Respiration Rate 14 FiO2 40 EPAP 6 IPAP 12 BiPAP s/t Microbiology and Other Data: Microbiology 10/31/17 17:37 Legionella Urinary Antigen - Final Urine Negative Legionella Streptococcus pneumoniae Ag Screen - Final Negative S. pneumo Antigen Assess/Plan/Problems-Billing Assessment: Ms. Clement is an 86 yo female with PMH significant for COPD with chronic hypoxic respiratory failure who refuses home O2, Vit B12 def, HTN, hypothyroidism, breast CA, GERD, glaucoma, HLD, lymphedema, endometrial CA who presented to the emergency room with complaints of wheezing and not improving after being diagnosed with bronchitis and started on bactrim. - Patient Problems (1) Pneumonia Code(s): J18.9 - PNEUMONIA, UNSPECIFIED ORGANISM SNOMED Code(s): 876778421 Comment: - Chest xray with patchy consolidation in bilateral upper lobes - Pt also appeared to have vascular congestion and received a dose of IV lasix - Afebrile and leukocytosis - Blood cultures, no growth day 4 - Urine antigens for legionella and S. pneumo negative - Sputum culture, yeast - Continue doxcycline and ceftriaxone (2) Altered mental status Code(s): R41.82 - ALTERED MENTAL STATUS, UNSPECIFIED SNOMED Code(s): 770418980 Comment: - Resolved - EEG negative - Suspect secondary to acute hypoxic/hypercabic respiratory failure with respiratory acidosis. Suspect respiratory acidosis was secondary to hypovenilation (3) COPD exacerbation Code(s): J44.1 - CHRONIC OBSTRUCTIVE PULMONARY DISEASE W (ACUTE) EXACERBATION SNOMED Code(s): 037223295 Comment: - Secondary to bronchitis/PNA - Continue nebs (scheduled and PRN), doxcycline and prednisone (4) Chronic respiratory failure with hypoxia Comment: - Acute on chronic, improving - Acute hypercarbic respiratory failure, resolved (5) Thrush, oral Code(s): B37.0 - CANDIDAL STOMATITIS SNOMED Code(s): 33681184 Comment: - Will start nystatin (6) Dehydration Code(s): E86.0 - DEHYDRATION SNOMED Code(s): 43892755 Comment: - Hold HCTZ and given gentle IVFs (7) Hyponatremia Code(s): E87.1 - HYPO-OSMOLALITY AND HYPONATREMIA SNOMED Code(s): 35619891 Comment: - Suspect secondary to HCTZ, dehydration, and SIADH - Will continue to hold HCTZ and start fluid restriction - Urine osm 299, serum osm 276 and urine sodium 68 (8) Hypokalemia Code(s): E87.6 - HYPOKALEMIA SNOMED Code(s): 80100964 Comment: - Resolved (9) HTN (hypertension) Code(s): I10 - ESSENTIAL (PRIMARY) HYPERTENSION SNOMED Code(s): 63259569 Comment: - SBP 130-150s - Hold HCTZ and continue valsartan (10) GERD (gastroesophageal reflux disease) Code(s): K21.9 - GASTRO-ESOPHAGEAL REFLUX DISEASE WITHOUT ESOPHAGITIS SNOMED Code(s): 982418919 Comment: - Continue omeprazole (11) DVT prophylaxis Code(s): JLA6342 - SNOMED Code(s): 471589430 Comment: - SQ heparin (12) Full code status Code(s): Z78.9 - OTHER SPECIFIED HEALTH STATUS SNOMED Code(s): 629520290 Status and Disposition: Inpatient. Discharge to home when medically stable, suspect she will be ready in the AM. Attending: Artie Rose
[2017-11-03] MEDS: Nystatin SUSPENSION* 100000 UNITS/ML 5 ML UDC SWISH SPIT SCH (21:38)
[2017-11-03] MEDS: Timolol 0.5% OPTH.SOL* BTL RIGHT EYE SCH (21:40)
[2017-11-03] MEDS: Montelukast Sodium TAB* 5 MG PO SCH (21:43)
[2017-11-04] MEDS: Levothyroxine TAB* 75 MCG TAB PO SCH (05:43)
[2017-11-04] MEDS: Omeprazole CAP* 20 MG PO SCH (05:43)
[2017-11-04] MEDS: Heparin VIAL(*) 5000 UNITS/ML VIAL (FIVE THOUSAND) SUBCUT SCH (05:44)
[2017-11-04] MEDS: Mometasone/Formoter 200/5 MDI INH SCH (07:57)
[2017-11-04] MEDS: Tiotropium CAP.INH* CAP.INH/18 MCG (USE ORDER SET !) INH SCH (07:57)
[2017-11-04] MEDS: Valsartan TAB* 40 MG PO SCH (08:54)
[2017-11-04] MEDS: predniSONE TAB* 50 MG PO SCH (08:54)
[2017-11-04] MEDS: Atorvastatin* 20 MG TAB PO SCH (08:54)
[2017-11-04] MEDS: DOXYcycline CAP(*) 100 MG PO SCH (08:54)
[2017-11-04] MEDS: Aspirin EC Low Dose* 81 MG TAB.EC PO SCH (08:55)
[2017-11-04] MEDS: FLUoxetine CAP* 20 MG PO SCH (08:55)
[2017-11-04] MEDS: amLODIPine TAB* 5 MG PO SCH (08:55)
[2017-11-04] MEDS: Docusate CAP* 100 MG PO SCH (08:55)
[2017-11-04] MEDS: Nystatin SUSPENSION* 100000 UNITS/ML 5 ML UDC SWISH SPIT SCH (08:55)
[2017-11-04] MEDS: Metoprolol Tartrate TAB* 50 mg PO SCH (08:55)
[2017-11-04 11:27] VITALS: BP 134/55
--- NOTE | 2017-11-04 12:25 | PN ---
Subjective Date of Service: 11/04/17 Interval History: Patient seen and examined at bedside. Denies fever, chills, shortness of breath (increased above baseline), chest discomfort, N/V/D. Pt continues to have a moist cough. She is anxious for discharge to home today. Tele: Sinus rhythm, rate 60's. Family History: Unchanged from Admission Social History: Unchanged from Admission Past Medical History: Unchanged from Admission Objective Active Medications: Acetaminophen (Tylenol Tab*) 650 mg PO Q4H PRN Reason: FEVER/PAIN Amlodipine Besylate (Norvasc Tab*) 10 mg PO DAILY [facility] Aspirin (Aspirin Ec Low Dose*) 81 mg PO DAILY [facility] Atorvastatin Calcium (Lipitor*) 20 mg PO DAILY [facility] Calcium Carbonate (Tums*) 500 mg PO Q4H PRN Reason: INDIGESTION Docusate Sodium (Colace Cap*) 100 mg PO BID [facility] Doxycycline Hyclate (Vibramycin Cap(*)) 100 mg PO BID [facility] Fluoxetine HCl (Prozac Cap*) 20 mg PO DAILY [facility] Fluticasone Propionate (Flonase Nasal [place] 50mcg*) 1 spray BOTH NARES BID PRN Reason: allergies Guaifenesin (Robitussin*) 5 ml PO Q4H PRN Reason: COUGH Heparin Sodium (Porcine) (Heparin Vial(*)) 5,000 units SUBCUT Q8HR [facility] Heparin Sodium (Porcine) (Heparin Flush Picc/Ml/Cvc(*)) 1 - 3 ml FLUSH 0600, 1800 [facility] Ceftriaxone Sodium 1 gm/ (Sodium Chloride) 50 mls @ 200 mls/hr IVPB Q24H [facility] Ipratropium [place] (Atrovent 0.5 Mg Neb.Bonnie*) 0.5 mg INH Q6H PRN Reason: SOB/ WHEEZING Lactulose (Lactulose 300 Ml For Pr*) 200 gm [place] DAILY PRN Reason: CONSTIPATION Levothyroxine Sodium (Synthroid Tab*) 75 mcg PO DAILY@0600 [facility] Metoprolol Tartrate (Lopressor Tab*) 50 mg PO DAILY [facility] Mometasone Furoate/Formoterol Fumar (Dulera 200/5 Mdi*) 2 puff INH BID [facility] Montelukast Sodium (Singulair Tab*) 5 mg PO BEDTIME [facility] Nystatin (Nystatin Suspension*) 200,000 units SWISH SPIT QID [facility] Omeprazole (Prilosec Cap*) 20 mg PO DAILY@0600 [facility] Prednisone (Deltasone Tab*) 50 mg PO DAILY [facility] Timolol Maleate (Timoptic 0.5% Opth*) 1 drop RIGHT EYE 2100 [facility] Tiotropium [place] (Spiriva Cap.Inh*) 1 cap INH DAILY [facility] Valsartan (Diovan Tab*) 40 mg PO BID [facility] Vital Signs - 8 hr 11/04/17 11/04/17 11/04/17 07:18 08:00 11:17 Temperature 97.7 F 97.3 F Pulse Rate 72 65 Respiratory 16 16 16 Rate Blood Pressure 143/59 134/55 (mmHg) O2 Sat by Pulse 96 96 96 Oximetry Oxygen Devices in Use Now: None Appearance: NAD, sitting up in bed Respiratory: Symmetrical Chest Expansion and Respiratory Effort, - - Lung sounds diminished, with few exp wheezes Cardiovascular: NL Sounds; No Murmurs; No JVD, RRR Abdominal: NL Sounds; No Tenderness; No Distention Extremities: - - Mild bilateral LE edema Skin: - - Eccymosis to right elbow Neurological: Alert and Oriented x 3, NL Muscle Strength and Tone Lines/Tubes/Other Access: Clean, Dry and Intact Peripheral IV - site benign, Clean, Dry and Intact PICC Line - Midline, site benign Nutrition: Taking PO's Result Diagrams: 11/02/17 06:44 11/03/17 06:30 Additional Lab and Data: Lab Results Laboratory Tests 10/31/17 12:25 ABG pH 7.08 L* ABG pCO2 76 H* ABG pO2 72 L ABG HCO3 17.9 L ABG O2 Saturation 93.8 L ABG Base Excess -8.8 L FiO2 5 Laboratory Tests 10/31/17 13:57 ABG pH 7.36 ABG pCO2 38 ABG pO2 110 H ABG HCO3 22.1 ABG O2 Saturation 99.4 H ABG Base Excess -3.6 L Respiration Rate 14 FiO2 40 EPAP 6 IPAP 12 BiPAP s/t Microbiology and Other Data: Microbiology 10/31/17 17:37 Legionella Urinary Antigen - Final Urine Negative Legionella Streptococcus pneumoniae Ag Screen - Final Negative S. pneumo Antigen Assess/Plan/Problems-Billing Assessment: Ms. Clement is an 86 yo female with PMH significant for COPD with chronic hypoxic respiratory failure who refuses home O2, Vit B12 def, HTN, hypothyroidism, breast CA, GERD, glaucoma, HLD, lymphedema, endometrial CA who presented to the emergency room with complaints of wheezing and not improving after being diagnosed with bronchitis and started on bactrim. - Patient Problems (1) Pneumonia Code(s): J18.9 - PNEUMONIA, UNSPECIFIED ORGANISM SNOMED Code(s): 293945479 Comment: - Chest xray with patchy consolidation in bilateral upper lobes - Pt also appeared to have vascular congestion and received a dose of IV lasix - Afebrile and leukocytosis - Blood cultures, no growth day 4 - Urine antigens for legionella and S. pneumo negative - Sputum culture, yeast - Continue cefdinir outpatient (2) Altered mental status Code(s): R41.82 - ALTERED MENTAL STATUS, UNSPECIFIED SNOMED Code(s): 244417955 Comment: - Resolved - EEG negative - Suspect secondary to acute hypoxic/hypercabic respiratory failure with respiratory acidosis. Suspect respiratory acidosis was secondary to hypovenilation (3) COPD exacerbation Code(s): J44.1 - CHRONIC OBSTRUCTIVE PULMONARY DISEASE W (ACUTE) EXACERBATION SNOMED Code(s): 843081274 Comment: - Secondary to bronchitis/PNA - Continue nebs (scheduled and PRN), and prednisone (4) Elevated troponin Code(s): R74.8 - ABNORMAL LEVELS OF OTHER SERUM ENZYMES SNOMED Code(s): 434071071 Comment: - Troponin peaked at 0.18 - Suspect secondary to demand ischemia in the setting of PNA and respiratory failure - Echo without wall motion abnormalities - EKG, no acute ST-T wave changes (5) Prolonged QT interval Code(s): R94.31 - ABNORMAL ELECTROCARDIOGRAM [ECG] [EKG] SNOMED Code(s): 428614695 Comment: - Suspect secondary to azithromycin - Improved after azithromycin was stopped (6) Chronic respiratory failure with hypoxia Comment: - Acute on chronic, improving - Acute hypercarbic respiratory failure, resolved (7) Thrush, oral Code(s): B37.0 - CANDIDAL STOMATITIS SNOMED Code(s): 41723084 Comment: - Continue nystatin (8) Dehydration Code(s): E86.0 - DEHYDRATION SNOMED Code(s): 77232169 Comment: - Hold HCTZ (9) Hyponatremia Code(s): E87.1 - HYPO-OSMOLALITY AND HYPONATREMIA SNOMED Code(s): 07233566 Comment: - Suspect secondary to HCTZ, dehydration, and SIADH - Urine osm 299, serum osm 276 and urine sodium 68 - Will continue to hold HCTZ (10) Hypokalemia Code(s): E87.6 - HYPOKALEMIA SNOMED Code(s): 81436235 Comment: - Resolved (11) HTN (hypertension) Code(s): I10 - ESSENTIAL (PRIMARY) HYPERTENSION SNOMED Code(s): 74031393 Comment: - SBP 130-140s - Hold HCTZ and continue valsartan (12) GERD (gastroesophageal reflux disease) Code(s): K21.9 - GASTRO-ESOPHAGEAL REFLUX DISEASE WITHOUT ESOPHAGITIS SNOMED Code(s): 879720717 Comment: - Continue omeprazole (13) DVT prophylaxis Code(s): VEG3313 - SNOMED Code(s): 833242249 (14) Full code status Code(s): Z78.9 - OTHER SPECIFIED HEALTH STATUS SNOMED Code(s): 127235652 Status and Disposition: Inpatient. Stable for discharge to home today.
--- NOTE | 2017-11-05 02:16 | DS ---
CC: Dr. Jaqui Gutierres * DISCHARGE SUMMARY: DATE OF ADMISSION: 10/30/17 DATE OF DISCHARGE: 11/04/17 ATTENDING PHYSICIAN: Dr. Artie Rose * (dictated by Cristóbal Abbott NP). PRIMARY CARE PROVIDER: Dr. Jaqui Gutierres. PRIMARY DIAGNOSES: 1. Pneumonia. 2. Chronic obstructive pulmonary disease exacerbation. 3. Hypercarbic respiratory failure, resolved. 4. Respiratory acidosis, resolved. 5. Altered mental status, suspect secondary to acute hypoxic and hypercarbic respiratory failure, resolved. 6. Hypertroponinemia, suspect secondary to demand ischemia in the setting of acute hypoxic and hypercarbic respiratory failure and pneumonia. 7. Oral thrush. 8. Dehydration. 9. Hyponatremia, suspect secondary to syndrome of inappropriate secretion of antidiuretic hormone, hydrochlorothiazide, and dehydration. 10. Hypokalemia, resolved. 11. Prolonged QTc, prolonged azithromycin. 12. Chest pain. SECONDARY DIAGNOSES: 1. Hypertension. 2. Gastroesophageal reflux disease. STUDIES WHILE IN THE HOSPITAL: 1. Chest x-ray on 10/30/17. Radiologist's impression: Essentially stable exam of chronic interstitial findings. 2. Brain CT on 10/31/17. Radiologist's impression: No evidence for gross acute infarct, mass effect, or hemorrhage. Atrophy and findings consistent with small vessel ischemic changes. 3. Chest x-ray on 10/31/17. Radiologist's impression: Patchy consolidation of the upper lungs bilateral with stable chronic-appearing interstitial changes. Would recommend followup until resolution to exclude underlying pulmonary parenchymal pathology. 4. Electroencephalogram on 10/31/17. Neurology clinical impression: This is an essentially normal waking EEG. The background does consist of a rather low voltage, nondescript pattern, but this can be seen as a normal variant. There are no focal asymmetry or epileptiform abnormalities. 5. Transthoracic echocardiogram on 11/01/17. Shafting Worker's conclusion: Global left ventricular wall motion and contractility are within normal limits here. There is normal left ventricular systolic function. Estimated ejection fracture is 55% to 60%. Mild aortic stenosis, mean gradient of the aortic valve is 10.77 mmHg, mild mitral regurgitation, [id number] tricuspid regurgitation, evidence of [id number] pulmonary hypertension, no significant pericardial effusion. Compared to study of 06/20/17, the LV function is the same. The mild is new. The severe tricuspid regurgitation and pulmonary hypertension is new. DISCHARGE MEDICATIONS: New home medications: 1. Aspirin 81 mg oral daily. 2. Cefdinir 300 mg oral twice daily for 6 more days to complete a 10-day course. 3. Nystatin suspension 200,000 units, swish and spit 4 times daily for 6 more days. 4. Prednisone 20 mg tablets to take 40 mg oral daily for 3 days, followed by 30 mg oral daily for 3 days, followed by 20 mg oral daily for 3 days, followed by 10 mg oral daily for 3 days, then stop. Continued home medications: 1. Amlodipine 10 mg oral daily. 2. Ipratropium HFA 1 puff inhalation every 4 hours as needed for shortness of breath. 3. Valsartan 40 mg oral twice daily. 4. Travatan Z 0.004% ophthalmic 1 drop to both eyes daily. 5. Spiriva Respimat 2 puffs inhalation daily at bedtime. 6. Timolol 0.5% ophthalmic solution 1 drop to the right eye daily. 7. Singulair 4 mg oral daily. 8. Metoprolol tartrate 50 mg oral daily. 9. Levothyroxine 50 mcg oral daily. 10. Flonase nasal spray, 1 spray to both nares twice daily as needed for allergies. 11. Fluoxetine 20 mg oral daily. 12. Nexium 40 mg oral daily. 13. Restasis 0.05% ophthalmic solution, 1 drop to both eyes twice daily. 14. Symbicort 160/4.5 two puffs inhalation twice daily. 15. Atorvastatin 20 mg oral daily. 16. Acyclovir, apply topical daily as needed for cold sores. 17. Lactulose daily as needed for constipation. Discontinued home medication: Hydrochlorothiazide. HISTORY OF PRESENT ILLNESS/HOSPITAL COURSE: Ms. Clement is an 87-year-old female with past medical history significant for COPD, who was supposed to be on home oxygen, but has not; endometrial carcinoma, status post hysterectomy and bilateral salpingo- oophorectomy; vitamin B12 deficiency; hypertension; hypothyroidism; history of breast cancer, status post lumpectomy and tamoxifen for 5 years; GERD; glaucoma; dyslipidemia; lymphedema, who presented to the hospital complaining of shortness of breath. The patient had been seen in the emergency room 3 days prior and prescribed Bactrim for bronchitis. Due to continued shortness of breath, she represented to the emergency room. While in the emergency room, she was noted to have increased wheezing, diagnosed with the COPD exacerbation and bronchitis. She had a CT showing an essentially stable exam with chronic interstitial findings. She had troponin of 0.01, procalcitonin below 0.1. She had a negative influenza A and B on 10/28. ABG showing a pH of 7.43, PCO2 of 34, PO2 85, bicarb 23.9. Sodium was 125. Hospitalists were asked to evaluate the patient for admission. While in the hospital, the day after her admission, the patient while getting a midline catheter placed, developed an episode of unresponsiveness. She was staring to the left with her arms out in the air and shaking, initially a Code [place] was called. She had a brain CT that was negative. She was taken to the ICU and placed on a BiPAP and had an ABG drawn showing an acute hypoxic and hypercarbic respiratory failure with respiratory acidosis. Respiratory acidosis suspected to be secondary to hypoventilation. She had urine antigens for legionella and S. pneumoniae. She had a repeat chest x-ray showing patchy consolidations in the bilateral upper lobes. The patient was started on ceftriaxone and azithromycin. She had had blood cultures drawn while in the emergency room that had no growth during her stay. Her altered mental status resolved after an hour on the BiPAP. She had a repeat ABG showing resolution of her hypercarbic respiratory failure. She was continued to be treated for COPD exacerbation with scheduled nebs and Solu- Medrol. She was eventually able to be tapered to prednisone p.o. She was noted to have a prolonged QTc after a complaint of chest pain that had radiated to her neck. She had troponins trended , was found to have elevated troponins, peaked at 0.18, this was suspected to be secondary to her pneumonia and episode of respiratory failure and suspected to be demand ischemia. The patient's azithromycin was changed over to doxycycline due to the QTc prolongation. The patient was felt to be dehydrated. Her hydrochlorothiazide was held. She was given gentle IV fluids. She also was found to have hyponatremia. Again, this was felt to be secondary to her hydrochlorothiazide and hydration. Initially, her valsartan and hydrochlorothiazide were held. She received some IV hydration. When her sodium trended down with saline, that was stopped and her sodium began to improve. 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 She was found to have episode of hypokalemia that resolved after potassium replacement. During her stay, her valsartan was resumed. Her blood pressures were mostly normotensive. She was doing well. As a matter of fact, she no longer showed signs of hypoxic respiratory failure and did not have oxygen requirements at discharge. She is afebrile. She did have some leukocytosis that resolved during her stay. She was noted to have anemia on admission, but this resolved during her stay. Ms. Clement is feeling well and anxious for discharge to home. Ms. Clement is stable for discharge to home today. Vital signs are as follows: Temperature 97.3, heart rate 65, respiratory rate 16, O2 sat 96% on room air, blood pressure 134/55. DISCHARGE PLAN: The patient will be discharged to home. Activity as tolerated. She will be on regular diet. In regards to her pneumonia, this was evolving at admission. She will be continued on cefdinir 300 mg oral twice daily for 6 more days to complete a 10-day course of antibiotics. She received 6 days of azithromycin and doxycycline. This does not need to be continued. In regards to her COPD exacerbation, she will be continued on a prednisone taper. She has been instructed to take 40 mg oral daily for 3 days, followed by 30 mg oral daily for 3 days, 20 mg oral daily for 3 days, 10 mg oral daily for 3 days, and then stop. She is to resume her usual home medications with the exception of hydrochlorothiazide in the setting of SIADH and hyponatremia. She has a followup appointment with her primary care provider, Dr. Gutierres, on 11/08/2017, at 1:20 p.m. She has been asked to return to the emergency room for any chest pain or shortness of breath increased above her baseline. The patient was noted to have developed thrush. She was started on nystatin suspension 200,000 units, swish and spit 4 times daily for 6 more days to complete a 7-day course. She was instructed to start taking a baby aspirin if she was already not taking one at home. This is a summarized report of a complex medical history and hospital stay. For further details, please see the entire medical record. Time for this discharge was approximately 50 minutes, greater than half of that was spent on the patient discussing discharge plans and instructions. CONDITION ON DISCHARGE: Stable. CRISTÓBAL ABBOTT NP [id number]/[facility] #: [id number] MANUEL
== END 2017-11-04 14:56 | disposition home health service (06) | DRG 193 ==
LOC: ED 04:36 → MEDTELE 09:13 → ICU 10-31 12:36 → MEDTELE 11-02 13:18
PROVIDERS: ADMIT Internal Medicine; ATTEND Internal Medicine
PROC: 4A10X4Z Monitoring of Central Nervous Electrical Activity, External Approach (ICD-10-PCS; principal; 2017-10-31)
PROC: 5A09357 Assistance with Respiratory Ventilation, Less than 24 Consecutive Hours, Continuous Positive Airway Pressure (ICD-10-PCS; 2017-10-31)
DX: J18.9 Pneumonia, unspecified organism (principal); J96.21 Acute and chronic respiratory failure with hypoxia; B37.0 Candidal stomatitis; E22.2 Syndrome of inappropriate secretion of antidiuretic hormone; E87.2 Acidosis; I08.3 Combined rheumatic disorders of mitral, aortic and tricuspid valves; J96.22 Acute and chronic respiratory failure with hypercapnia; I24.8 Other forms of acute ischemic heart disease; J43.9 Emphysema, unspecified; I27.20 Pulmonary hypertension, unspecified; E86.0 Dehydration; I10 Essential (primary) hypertension; I25.10 Atherosclerotic heart disease of native coronary artery without angina pectoris; M81.0 Age-related osteoporosis without current pathological fracture; K21.9 Gastro-esophageal reflux disease without esophagitis; H40.9 Unspecified glaucoma; E78.5 Hyperlipidemia, unspecified; E03.9 Hypothyroidism, unspecified; I45.81 Long QT syndrome; F32.9 Major depressive disorder, single episode, unspecified; R07.9 Chest pain, unspecified; G31.9 Degenerative disease of nervous system, unspecified; I89.0 Lymphedema, not elsewhere classified; E87.6 Hypokalemia; D64.9 Anemia, unspecified; F41.0 Panic disorder [episodic paroxysmal anxiety]; Z85.89 Personal history of malignant neoplasm of other organs and systems; Z99.81 Dependence on supplemental oxygen; Z91.030 Bee allergy status; Z91.018 Allergy to other foods; Z88.8 Allergy status to other drugs, medicaments and biological substances; Z85.42 Personal history of malignant neoplasm of other parts of uterus; Z90.710 Acquired absence of both cervix and uterus; Z98.42 Cataract extraction status, left eye; Z98.41 Cataract extraction status, right eye; Z82.5 Family history of asthma and other chronic lower respiratory diseases; Z82.61 Family history of arthritis; Z80.0 Family history of malignant neoplasm of digestive organs; Z87.891 Personal history of nicotine dependence; Z90.722 Acquired absence of ovaries, bilateral; Z90.79 Acquired absence of other genital organ(s); Z85.3 Personal history of malignant neoplasm of breast; Z80.3 Family history of malignant neoplasm of breast; Z80.6 Family history of leukemia; Z79.82 Long term (current) use of aspirin
CPT/HCPCS: 36415; 36600; 70450; 71045; 80048; 80053; 81003; 81015; 82803; 83605; 83735; 83880; 83930; 83935; 84145; 84300; 84484; 85025; 85610; 85730; 86140; 87040; 87070; 87086; 87205; 87502; 87899; 93005; 93306; 94640; 94660; 94760; 95816; 99284; A9270-GY; J0456; J0696; J0780; J1644; J1940; J2920; J2930; J7512

== ENCOUNTER 2018-02-14 14:10 | Emergency (ER) | payer MEDICARE ==
[2018-02-14 14:35] VITALS: BP 144/71
--- NOTE | 2018-02-14 15:23 | UC ---
Tj Ross Stephanie, scribed for Hector Frank MD on 02/14/18 at 1501 . Lower Extremity/Ankle HPI - HPI Summary HPI Summary: The pt is an 87 y/o F presenting to with c/o R LE pain that began at 12:30 today s/p trip and fall. Symptoms include swelling and bruising over R LE and a superficial laceration to the nose and cheek. The pt denies taking blood thinners. She takes daily baby aspirin. Per pt's daughter, the pt has chronic bilateral LE edema. The pt declined ambulance transportation to ER. - History of Current Complaint Chief Complaint: UCLowerExtremity Stated Complaint: FELL FACIAL LEG INJURY AND SKIN ISSUE ON LEG Time Seen by Provider: 02/14/18 14:48 Hx Obtained From: Patient ?: No Onset/Duration: Sudden Onset, Lasting Hours - 2, Still Present Severity Currently: Severe Pain Intensity: 3 Pain Scale Used: 0-10 Numeric Aggravating Factor(s): Ambulation Alleviating Factor(s): Nothing Able to Bear Weight: Yes - Allergies/Home Medications Allergies/Adverse Reactions: Allergies Allergy/AdvReac Type Severity Reaction Status Date / Time bee venom protein (honey bee) Allergy Anaphylatic Verified 02/14/18 14:35 Shock cashew nut Allergy Swelling Verified 02/14/18 14:35 Of Face,Lips,& Throat sesame oil Allergy Itching Verified 02/14/18 14:35 sesame seed Allergy Itching Verified 02/14/18 14:35 thiopental Allergy Anaphylatic Verified 02/14/18 14:35 Shock SODIUM PENTOTHAL Allergy Anaphylatic Uncoded 02/14/18 14:35 Shock / UNCONSCIOUS PMH/Surg Hx/FS Hx/Imm Hx Previously Healthy: No Cardiovascular History: Hypertension Respiratory History: COPD - Surgical History Surgical History: Yes Surgery Procedure, Year, and Place: 4 glaucoma Trabeculectomy 04/09,04/04,05/31, all at [facility] [place] ,lt cataract x 2,lumpectomy breast right side,3 surgical biopsies, hysterectomy,tonsils - Family History Known Family History: Positive: Respiratory Disease - Younger sister of multi system failure, had bad lungs., Other - Brother: fatal stomach [place] (age of 78). Arthritis. - Social History Occupation: Retired Lives: With Family Alcohol Use: None Substance Use Type: None Smoking Status (MU): Former Smoker Have You Smoked in the Last Year: No - Immunization History Most Recent Influenza Vaccination: 2018 Most Recent Tetanus Shot: unknown - probably outdated. Patient will contact primary care provider Most Recent Pneumonia Vaccination: has had Review of Systems Constitutional: Negative Skin: Bruising - R LE, Other - R LE redness Eyes: Negative ENT: Negative Respiratory: Negative Cardiovascular: Negative Gastrointestinal: Negative Genitourinary: Negative Motor: Negative Neurovascular: Negative Musculoskeletal: Other: - R LE pain, R knee pain Neurological: Negative Psychological: Negative All Other Systems Reviewed And Are Negative: Yes Physical Exam - Summary Physical Exam Summary: VITAL SIGNS: Reviewed. GENERAL: Patient is a well-developed and nourished FEMALE who is lying comfortable in the stretcher. Patient is not in any acute respiratory distress. HEAD AND FACE: Normocephalic EYES: PERRLA, EOMI x 2. EARS: Hearing grossly intact. MOUTH: Oropharynx within normal limits. NECK: Supple, trachea is midline, no adenopathy, no JVD, no carotid bruit. CHEST: Symmetric, no tenderness at palpation LUNGS: Clear to auscultation bilaterally. No wheezing or crackles. CVS: Regular rate and rhythm, S1 and S2 present, no murmurs or gallops appreciated. ABDOMEN: Soft, non-tender. Bowel sounds are normal. No abdominal abnormal pulsations. EXTREMITIES: Full ROM in all major joints, no cyanosis or clubbing. R leg has chronic lymphedema, R leg swollen, shiny skin, tender, with hematoma. L leg has chronic lymphedema and is swollen with erythema. NEURO: Alert and oriented x 3. No acute neurological deficits. Speech is normal and follows commands. SKIN: Dry and warm Triage Information Reviewed: Yes Vital Signs: Initial Vital Signs Temp 98.1 F 02/14/18 14:31 Pulse 63 02/14/18 14:31 Resp 14 02/14/18 14:31 BP 144/71 02/14/18 14:31 Pulse Ox 98 02/14/18 14:31 Vital Signs Reviewed: Yes Lower Extremity Course/Dx - Course Course Of Treatment: This patient is an 87-year-old female who presents to the urgent care with chief complaint of having an accidental fall. He is complaining of facial trauma and also radial extremity swelling, pain secondary to the fall. She also is complaining of left lower extremity swelling erythema she thinks that she has a cellulitis. Physical exam revealed a nasal bridge abrassion, upper lip abrasion, right lower extremity swelling, hematoma, erythema from the knee down to the ankle. She also has the shiny skin therefore I will send the patient to the emergency department to rule out any acute pathology including a compartment syndrome. Also the patient needs an ultrasound of the left extremity seems that she has cellulitis, erythema and swelling to rule out DVT. Patient understands the patient declines ambulance she will call in the private car. Patient is hemodynamically stable alert and oriented 3. - Differential Dx/Diagnosis Provider Diagnoses: cellulitis, hematoma, knee pain Discharge - Sign-Out/Discharge Documenting (check all that apply): Discharge/Admit/Transfer - Discharge - Discharge Plan Condition: Stable Disposition: HOME Patient Education Materials: Cellulitis (ED), Knee Pain (ED) Referrals: Jaqui Gutierres MD [Primary Care Provider] - Additional Instructions: Patient will be discharged to the ED for further assessment. Declined ambulance. - Billing Disposition and Condition Condition: STABLE Disposition: Home The documentation as recorded by the Tj dueñas Stephanie accurately reflects the service I personally performed and the decisions made by me, Hector Frank MD.
== END 2018-02-14 15:00 | disposition home or self-care (01) ==
LOC: UCEAST 14:10
DX: S80.11XA Contusion of right lower leg, initial encounter (principal); S00.511A Abrasion of lip, initial encounter; S00.31XA Abrasion of nose, initial encounter; S80.811A Abrasion, right lower leg, initial encounter; W01.0XXA Fall on same level from slipping, tripping and stumbling without subsequent striking against object, initial encounter; Y93.9 Activity, unspecified; Y92.9 Unspecified place or not applicable; L03.115 Cellulitis of right lower limb; M25.561 Pain in right knee; R60.0 Localized edema; Z79.82 Long term (current) use of aspirin
CPT/HCPCS: 99212; G0463

== ENCOUNTER 2018-02-14 16:14 | Emergency (ER) | payer MEDICARE ==
--- NOTE | 2018-02-14 17:52 | RAD ---
INDICATION: Cellulitis and bruising overlying the right lower leg after a fall COMPARISON: None TECHNIQUE: 2 view radiograph of the right knee and 2 view radiograph of the right lower leg. FINDINGS: The visualized bones are well-corticated and properly aligned. Age-appropriate degenerative changes include narrowing of the medial compartment of the right knee. There is mild sclerotic change of the articulating surface of the distal most tibia but the right ankle joint is otherwise appropriately aligned. There is no radiographic evidence of joint effusion. There is no acute fracture, dislocation or other focal bony abnormality. There is the appearance of induration of the subcutaneous tissue overlying the knee and right lower leg. Coarse calcification is seen at the expected location of the superficial femoral and popliteal arteries. IMPRESSION: 1. No radiographically apparent fracture or dislocation involving the right knee or right lower leg. 2. Radiographic appearance is consistent with induration of the subcutaneous tissue of the right lower leg. 3. Incidentally noted is coarse calcification overlying the superficial femoral and popliteal arteries similar to the coarse atherosclerotic calcification seen at the aortoiliac arteries on the prior CT of the abdomen and pelvis. Please correlate to signs and symptoms of right lower extremity arterial insufficiency. If the patient's symptoms persist, follow-up imaging is recommended.
--- NOTE | 2018-02-14 18:16 | RAD ---
HISTORY: Right lower leg pain and swelling after a fall TECHNIQUE: Multiple transverse and longitudinal ultrasound images were obtained of the veins of the bilateral lower extremities using grayscale, color Doppler, and spectral Doppler imaging with and without compression and with augmentation. FINDINGS: VEINS: The common femoral vein, deep femoral vein, femoral vein and popliteal vein are compressible throughout their course, with normal flow on color Doppler imaging and normal response to augmentation on spectral Doppler imaging. Evaluation of the infrapopliteal veins is limited in the right due to edema and essentially prevented in the left lower leg. SOFT TISSUES: There is infiltration of the subcutaneous tissue without drainable fluid collection identified. IMPRESSION: 1. No sonographic evidence of femoral-popliteal deep vein thrombosis. 2. Sonographic appearance is consistent with edematous infiltration of the bilateral lower extremities that prevents confident visualization of the infrapopliteal veins.
[2018-02-14 18:44] LABS: ABS Basophils 0.1 10^3/ul (0-0.2); ABS Eosinophils 0.2 10^3/ul (0-0.6); ABS Lymphocytes 1.2 10^3/ul (1.0-4.8); ABS Monocytes 0.6 10^3/ul (0-0.8); ABS Neutrophils 4.5 10^3/ul (1.5-7.7); ABS Nucleated RBC 0 10^3/ul; Eosinophil % 2.6 % (0-6); Hematocrit 33 % (35-47); Hemoglobin 11.1 g/dl (12.0-16.0); Lymphocyte % 18.3 % (25-47); Mean Corpuscular HGB Conc 34 g/dl (31-36); Mean Corpuscular Hemoglobin 31 pg (27-31); Mean Corpuscular Volume 90 fL (80-97); Mean Platelet Volume 7.9 um3 (7.4-10.4); Nucleated Red Blood Cells % 0; Platelet Count 236 10^3/ul (150-450); Red Cell Distribution Width 15 % (10.5-15); White Blood Count 6.5 10^3/ul (3.5-10.8)
[2018-02-14] MEDS ORDERED: Tetan/Diph/Pertus SYR(Tdap)* 0.5 ML SYR(BOOSTRIX) use SYR IM ONE (20:07)
[2018-02-14 20:20] LABS: EGFR Non-African American 49.3 (>60)
[2018-02-14 20:50] VITALS: BP 138/65
--- NOTE | 2018-02-14 21:38 | ED ---
Mikey Ross Rebecca, scribed for Rashard Medina MD on 02/14/18 at 1949 . Lower Extremity - HPI Summary HPI Summary: Pt is an 87 y/o F who presents to ED referred from [facility] for RLE pain and bruising s/p fall. At 1230 today, the pt tripped over shoes and fell, after which she was able to ambulate. Reports hitting her nose on carpet, but other denying any head trauma or LOC. Took Hydrocodone at 1330. Associated pain on triage was severe, ranked 8/10 on trigae, though currently she reports pain as mild. Reports chronic bilateral LE edema for which she uses a pressure pump at night at home. Has forgotten the past 2 days. Takes 81 mg ASA daily without any other blood thinners. - History of Current Complaint Chief Complaint: EDExtremityLower Stated Complaint: FALL Time Seen by Provider: 02/14/18 19:35 Hx Obtained From: Patient Mechanism Of Injury: Fall From A Standing Position Onset/Duration: Still Present Severity Initially: Severe - 8/10 Severity Currently: Mild Pain Intensity: 8 - On triage Pain Scale Used: 0-10 Numeric Location: Is Discrete @ - RLE Associated Signs And Symptoms: Positive: Bruising Aggravating Factor(s): Nothing Alleviating Factor(s): Nothing Able to Bear Weight: Yes - Allergies/Home Medications Allergies/Adverse Reactions: Allergies Allergy/AdvReac Type Severity Reaction Status Date / Time bee venom protein (honey bee) Allergy Anaphylatic Verified 02/14/18 14:35 Shock cashew nut Allergy Swelling Verified 02/14/18 14:35 Of Face,Lips,& Throat sesame oil Allergy Itching Verified 02/14/18 14:35 sesame seed Allergy Itching Verified 02/14/18 14:35 thiopental Allergy Anaphylatic Verified 02/14/18 14:35 Shock doxycycline AdvReac Severe Nausea And Verified 02/14/18 16:22 Vomiting Sulfa (Sulfonamide AdvReac Severe Nausea And Verified 02/14/18 16:22 Antibiotics) Vomiting SODIUM PENTOTHAL Allergy Anaphylatic Uncoded 02/14/18 14:35 Shock / UNCONSCIOUS PMH/Surg Hx/FS Hx/Imm Hx Endocrine/Hematology History: Reports: Hx Thyroid Disease Denies: Hx Diabetes, Hx Systemic Lupus Erythematosus Cardiovascular History: Reports: Hx Coronary Artery Disease - CHOLESTEROL CONTROL WITH MEDS, Hx Hypertension - on medication, Other Cardiovascular Problems/Disorders - mildly enlarged heart Denies: Hx Congestive Heart Failure, Hx Pacemaker/ICD Respiratory History: Reports: Hx Chronic Obstructive Pulmonary Disease (COPD) - on home O2, Hx Sleep Apnea - UNDIAGNOSISED, Other Respiratory Problems/ Disorders - emphysema Denies: Hx Asthma GI History: Reports: Hx Gastroesophageal Reflux Disease - ON MEDS Denies: Hx Ulcer History: Reports: 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" Denies: Hx Dialysis Musculoskeletal History: Reports: Hx Osteoporosis Denies: Hx Rheumatoid Arthritis Sensory History: Reports: Hx Cataracts, Hx Contacts or Glasses, Hx Glaucoma - BILATERAL, Hx Hearing Problem Denies: Hx Hearing Aid Opthamlomology History: Reports: Hx Cataracts, Hx Contacts or Glasses, Hx Glaucoma - BILATERAL Psychiatric History: Reports: Hx Depression, Hx Panic Disorder - Cancer History Cancer Type, 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 Hx Chemotherapy: Yes - uterine Hx Radiation Therapy: Yes - BREAST - Surgical History Surgery Procedure, Year, and Place: 4 glaucoma Tr[place]ec[place]09[place]04[place] [facility] [place],lumpectomy breast right side,3 surgical biopsies, hysterectomy,tonsils Hx Anesthesia Reactions: No Infectious Disease History: No Infectious Disease History: Denies: Hx Clostridium Difficile, Hx Hepatitis, Hx Human Immunodeficiency Virus (HIV), Hx of Known/Suspected MRSA, Hx Shingles, Hx Tuberculosis - exposed as child, History Other Infectious Disease, Traveled Outside the [place] in Last 30 Days - Family History Known Family History: Positive: Respiratory Disease - Younger sister of multi system failure, had bad lungs., Other - Brother: fatal stomach [place] (age of 78). Arthritis. - Social History Alcohol Use: None Substance Use Type: Reports: None Smoking Status (MU): Former Smoker Have You Smoked in the Last Year: No Review of Systems Negative: Fever Positive: Edema - Chronic bilateral LE edema, Other - RLE pain Positive: Bruising - RLE Neurological: Other - NEGATIVE: LOC All Other Systems Reviewed And Are Negative: Yes Physical Exam - Summary Physical Exam Summary: Appearance: Well appearing, no pain distress Skin: warm, dry, reflects adequate perfusion, extensive ecchymosis and hematoma to her anterior lower leg on the right Head/face: Jewett burn on the upper lip and bridge of nose Eyes: EOMI, MARCELLUS ENT: normal, no nasal septal hematoma Neck: supple, non-tender, no midline tenderness on the C-Spine Respiratory: CTA, breath sounds present Cardiovascular: RRR, pulses symmetrical Abdomen: non-tender, soft Bowel Sounds: present Musculoskeletal: strength/ROM intact, pelvis is stable, pitting edema bilaterally up to the knees Neuro: normal, sensory motor intact, A&Ox3 Triage Information Reviewed: Yes Vital Signs On Initial Exam: Initial Vitals Temp Pulse Resp BP Pulse Ox 97.4 F 56 20 128/58 96 02/14/18 16:18 02/14/18 16:18 02/14/18 16:18 02/14/18 16:18 02/14/18 16:18 Vital Signs Reviewed: Yes Diagnostics - Vital Signs Vital Signs Temp Pulse Resp BP Pulse Ox 02/14/18 19:15 56 132/50 99 02/14/18 19:14 59 97 02/14/18 18:59 62 120/83 95 02/14/18 18:29 61 122/54 97 02/14/18 16:18 97.4 F 56 20 128/58 96 - Laboratory Lab Results: Lab Results 02/14/18 02/14/18 Range/Units 18:32 18:32 WBC 6.5 (3.5-10.8) 10^3/ul RBC 3.60 L (4.00-5.40) 10^6/ul Hgb 11.1 L (12.0-16.0) g/dl Hct 33 L (35-47) % MCV 90 (80-97) fL MCH 31 (27-31) pg MCHC 34 (31-36) g/dl RDW 15 (10.5-15) % Plt Count 236 (150-450) 10^3/ul MPV 7.9 (7.4-10.4) um3 Neut % (Auto) 69.0 (38-83) % Lymph % (Auto) 18.3 L (25-47) % [place] % (Auto) 9.1 H (0-7) % Eos % (Auto) 2.6 (0-6) % Baso % (Auto) 1.0 (0-2) % Absolute Neuts (auto) 4.5 (1.5-7.7) 10^3/ul Absolute Lymphs (auto) 1.2 (1.0-4.8) 10^3/ul Absolute Monos (auto) 0.6 (0-0.8) 10^3/ul Absolute Eos (auto) 0.2 (0-0.6) 10^3/ul Absolute Basos (auto) 0.1 (0-0.2) 10^3/ul Absolute Nucleated RBC 0 10^3/ul Nucleated RBC % 0 ESR Pending Lactic Acid 0.6 (0.5-2.0) mmol/L Result Diagrams: 02/14/18 18:32 02/14/18 18:35 Lab Statement: Any lab studies that have been ordered have been reviewed, and results considered in the medical decision making process. - Radiology Lower Leg XR Radiology Interpretation Completed By: Radiologist - 1. No radiographically apparent fracture or dislocation involving the right knee or right lower leg. 2. Radiographic appearance is consistent with induration of the subcutaneous tissue of the right lower leg. 3. Incidentally noted is coarse calcification overlying the superficial femoral and popliteal arteries similar to the coarse atherosclerotic calcification seen at the aortoiliac arteries on the prior CT of the abdomen and pelvis. Please correlate to signs and symptoms of right lower extremity arterial insufficiency. If the patient's symptoms persist, follow-up imaging is recommended. ED physician reviewed this radiology report. Knee XR Radiology Interpretation Completed By: Radiologist - 1. No radiographically apparent fracture or dislocation involving the right knee or right lower leg. 2. Radiographic appearance is consistent with induration of the subcutaneous tissue of the right lower leg. 3. Incidentally noted is coarse calcification overlying the superficial femoral and popliteal arteries similar to the coarse atherosclerotic calcification seen at the aortoiliac arteries on the prior CT of the abdomen and pelvis. Please correlate to signs and symptoms of right lower extremity arterial insufficiency. If the patient's symptoms persist, follow-up imaging is recommended. ED physician reviewed this report. - Ultrasound No standard instances Ultrasound Interpretation: No Acute Changes - Venous Doppler US: 1. No sonographic evidence of femoral-popliteal deep vein thrombosis. 2. Sonographic appearance is consistent with edematous infiltration of the bilateral lower extremities that prevents confident visualization of the infrapopliteal veins. ED physician reviewed this report. Ultrasound Interpretation Completed By: Radiologist Lower Extremity Course/Dx - Course Course Of Treatment: Mechanical injury to the lower leg on the right. Significant hematoma without break in the skin. No blood thinners. Patient was placed in a 3 layer wrap to help protect the skin in this wound. I first placed 4 x 4 gauze and then used Curlex wrap gauze covered by Coban. An Rogerio wrap was then applied over top. She will use bacitracin on her nose and her tetanus was updated. - Diagnoses Provider Diagnoses: Fall, Hematoma, Peripheral edema, Stasis dermatitis Discharge - Sign-Out/Discharge Documenting (check all that apply): Discharge/Admit/Transfer - Discharge - Discharge Plan Condition: Good Disposition: HOME Prescriptions: Cephalexin CAP* [Keflex CAP*] 500 mg PO TID #21 cap Patient Education Materials: Stasis Dermatitis (ED), Edema (ED), Hematoma (ED) Referrals: Jaqui Gutierres MD [Primary Care Provider] - 3 Days Additional Instructions: RETURN TO ED FOR ANY NEW OR WORSENING SYMPTOMS. - Billing Disposition and Condition Condition: STABLE Disposition: Home The documentation as recorded by the Mikey dueñas Rebecca accurately reflects the service I personally performed and the decisions made by , Rashard Medina MD.
== END 2018-02-14 20:48 | disposition home or self-care (01) ==
LOC: ED 16:14
DX: S80.11XA Contusion of right lower leg, initial encounter (principal); W01.0XXA Fall on same level from slipping, tripping and stumbling without subsequent striking against object, initial encounter; Y92.9 Unspecified place or not applicable; R60.0 Localized edema; I87.2 Venous insufficiency (chronic) (peripheral); I70.201 Unspecified atherosclerosis of native arteries of extremities, right leg; I10 Essential (primary) hypertension; J44.9 Chronic obstructive pulmonary disease, unspecified; K21.9 Gastro-esophageal reflux disease without esophagitis; Z87.891 Personal history of nicotine dependence; Z99.81 Dependence on supplemental oxygen; Z79.82 Long term (current) use of aspirin; Z79.899 Other long term (current) drug therapy; Z88.2 Allergy status to sulfonamides; Z88.3 Allergy status to other anti-infective agents; Z88.8 Allergy status to other drugs, medicaments and biological substances; S00.511A Abrasion of lip, initial encounter; S00.31XA Abrasion of nose, initial encounter; Y93.9 Activity, unspecified; L03.115 Cellulitis of right lower limb; M25.561 Pain in right knee
CPT/HCPCS: 36415; 80053; 83605; 85025; 85610; 85652; 90471; 90715; 93970; 99283

== ENCOUNTER 2018-02-26 18:49 | Emergency (ER) | payer MEDICARE ==
[2018-02-26 19:16] VITALS: BP 110/49
[2018-02-26] MEDS ORDERED: Clindamycin CAP* 150 MG PO ONE (20:21)
--- NOTE | 2018-02-26 20:43 | UC ---
HPI Wound/Suture Re-check - HPI Summary HPI Summary: Patient accompanied by daughter who states she had a hematoma on right villarreal 13 days ago which was drained and got infected. She has been on keflex for several days but she had a low grade fever of 100.1F yesterday night. Her other daughter , who was dressing the wound, noticed a streak on the leg going up from wound on villarreal towards the knee. Patient denies fever or chills today. She states she has a lot of pain surrounding the wound - History Of Current Complaint Chief Complaint: UCLowerExtremity Stated Complaint: WOUND ON LEG Time Seen by Provider: 02/26/18 19:52 Hx Obtained From: Patient, Family/Hammer Adjuster Onset/Duration: Gradual Onset, Lasting Days Severity: Moderate Pain Intensity: 6 - Allergies/Home Medications Allergies/Adverse Reactions: Allergies Allergy/AdvReac Type Severity Reaction Status Date / Time bee venom protein (honey bee) Allergy Anaphylatic Verified 02/26/18 19:04 Shock cashew nut Allergy Swelling Verified 02/26/18 19:04 Of Face,Lips,& Throat sesame oil Allergy Itching Verified 02/26/18 19:04 sesame seed Allergy Itching Verified 02/26/18 19:04 thiopental Allergy Anaphylatic Verified 02/26/18 19:04 Shock doxycycline AdvReac Severe Nausea And Verified 02/26/18 19:04 Vomiting Sulfa (Sulfonamide AdvReac Severe Nausea And Verified 02/26/18 19:04 Antibiotics) Vomiting SODIUM PENTOTHAL Allergy Anaphylatic Uncoded 02/26/18 19:04 Shock / UNCONSCIOUS PMH/Surg Hx/FS Hx/Imm Hx Endocrine History: Hypothyroidism, Dyslipidemia Cardiovascular History: Hypertension Respiratory History: COPD Psychological History: Depression - Surgical History Surgical History: Yes Surgery Procedure, Year, and Place: 4 glaucoma Trabeculectomy 04/09,04/04,05/31, all at [facility] [place] ,lt cataract x 2,lumpectomy breast right side,3 surgical biopsies, hysterectomy 2013 ,tonsils - Family History Known Family History: Positive: Respiratory Disease - Younger sister of multi system failure, had bad lungs., Other - Brother: fatal stomach [place] (age of 78). Arthritis. - Social History Alcohol Use: None Substance Use Type: None Smoking Status (MU): Former Smoker Have You Smoked in the Last Year: No - Immunization History Most Recent Influenza Vaccination: 2017 Most Recent Tetanus Shot: unknown - probably outdated. Patient will contact primary care provider Most Recent Pneumonia Vaccination: has had Review of Systems Constitutional: Fever Musculoskeletal: Edema All Other Systems Reviewed And Are Negative: Yes Physical Exam Triage Information Reviewed: Yes Appearance: Well-Appearing, No Pain Distress, Obese Vital Signs: Initial Vital Signs Temp 98.7 F 02/26/18 19:08 Pulse 85 02/26/18 19:08 Resp 18 02/26/18 19:08 BP 110/49 02/26/18 19:08 Pulse Ox 98 02/26/18 19:08 Vital Signs Reviewed: Yes Eyes: Positive: Conjunctiva Clear ENT: Positive: Hearing grossly normal Neck: Positive: Supple, Nontender Respiratory: Positive: Lungs clear, Normal breath sounds Cardiovascular: Positive: Pulses Normal, Brisk Capillary Refill Abdomen Description: Positive: Nontender Musculoskeletal: Positive: Edema @ - Lower extremities Skin Exam: Other - 2.8x4cm ulcer with necrotic tissue surrounding borders, no discharge, no bleeding. Tender soft tissue surrounding wound with engorgement and erythema and streaking on medial aspect of wound extending to right knee Course/Dx - Course Course Of Treatment: patient is stable, wound has necrotic tissue surrounding it , debridement offered but patient refuses and wants to go to wound clinic tomorrow. Patient states she had fever yesterday and will discontinue keflex and start clinda. Culture wound was taken to f/u results and with PCP. Go to ER if after 2 doses she persists with pain or fever recurs. - Differential Dx - Laceration/Wound Provider Diagnoses: cellulitis. right villarreal ulcer Discharge - Sign-Out/Discharge Documenting (check all that apply): Discharge/Admit/Transfer - Discharge Plan Condition: Good Disposition: HOME Prescriptions: Clindamycin HCl 300 mg PO TID 7 Days #21 capsule Patient Education Materials: Wound Infection (ED), Cellulitis (ED), Clindamycin (By mouth) Referrals: Jaqui Gutierres MD [Primary Care Provider] - Additional Instructions: please go to wound clinic tomorrow - Billing Disposition and Condition Condition: GOOD Disposition: Home
--- NOTE | 2018-02-27 17:23 | UC ---
- Progress Note Progress Note: 02/27/2018 Gram stain: negative for organism Wound culture pending await results Mar Black PA-C Discharge - Sign-Out/Discharge Documenting (check all that apply): Discharge/Admit/Transfer - D/C home - Discharge Plan Condition: Good Disposition: HOME Prescriptions: Clindamycin HCl 300 mg PO TID 7 Days #21 capsule Patient Education Materials: Clindamycin (By mouth), Wound Infection (ED), Cellulitis (ED) Referrals: Jaqui Gutierres MD [Primary Care Provider] - Additional Instructions: please go to wound clinic tomorrow - Billing Disposition and Condition Condition: GOOD Disposition: Home
== END 2018-02-26 20:55 | disposition home or self-care (01) ==
LOC: UCEAST 18:49
DX: L03.115 Cellulitis of right lower limb (principal); L97.819 Non-pressure chronic ulcer of other part of right lower leg with unspecified severity; S81.801A Unspecified open wound, right lower leg, initial encounter; J44.9 Chronic obstructive pulmonary disease, unspecified; I10 Essential (primary) hypertension; Z91.030 Bee allergy status; Z91.018 Allergy to other foods; Z88.8 Allergy status to other drugs, medicaments and biological substances; Z88.1 Allergy status to other antibiotic agents; Z88.2 Allergy status to sulfonamides; Z87.891 Personal history of nicotine dependence
CPT/HCPCS: 87070; 87205; 99213; A9270-GY; G0463

== ENCOUNTER 2018-10-18 06:16 | Day surgery (SDC) | payer MEDICARE ==
[~2018-10-18 06:16] MED LIST: Buffered Lidocaine 1% SYRIN* 1 ML/SYRINGE INTRADERM ONE; Lactated Ringers 1000 ML Bag* 1,000 ML IV SCH; Proparacaine 0.5% OPHTH.SOL* 15 ML BTL ONE; mitoMYcin PWD* 0.2 MG in Sterile Water for Inj* 1 ML OPHTHALMIC SCH
[2018-10-18] MEDS ORDERED: Bupivacaine 0.25% SDV PF* 10 ML VIAL INJ ONE ×2 (06:59→07:12)
[2018-10-18] MEDS ORDERED: Sodium Bicarbonate 8.4% SYR* 10 ML SYRINGE ONE (06:59)
[2018-10-18] MEDS ORDERED: Atropine 1% OPHTH.SOL* 1 DROP BTL 2-5 ML ONE (07:00)
[2018-10-18] MEDS ORDERED: BSS OPTH.SOL* BTL ONE (07:00)
[2018-10-18] MEDS ORDERED: Acetylcholine 1:100 OPTH* OPHTH.SOLN ONE (07:00)
[2018-10-18] MEDS ORDERED: Triamcinolone Acetonide* 40 MG/ML 1 ML VIAL ONE (07:00)
[2018-10-18] MEDS ORDERED: Hyaluronidase OVINE* 200 UNIT/ML ML SUBCUT ONE ×2 (07:01→07:27)
[2018-10-18] MEDS ORDERED: Neomycin/Polymy/Dex OPTH.SUSP* MAXITROL 0.1% 5 ML ONE (07:01)
[2018-10-18] MEDS ORDERED: Povidone Iodine 5% OPTH* 30 ML BTL ONE (07:01)
[2018-10-18] MEDS ORDERED: Lidocaine 2% EPI 1:200000 MPF*10-20 ML VIAL ONE (07:01)
[2018-10-18] MEDS ORDERED: Lidocaine 2% PF* 10 ML AMP ONE (07:27)
[2018-10-18] MEDS ORDERED: Bupivacaine 0.25% W/EPI* 10 ML SDV ONE (07:27)
[2018-10-18] MEDS ORDERED: fentaNYL* 50 MCG/ML 2 ML VIAL (100 MCG VIAL) ONE (07:28)
[2018-10-18] MEDS ORDERED: Midazolam* 1 MG/ML 2 ML VIAL (2 MG) ONE (07:28)
[2018-10-18] MEDS ORDERED: Lidocaine 2% PF * 5 ML VIAL ONE (07:50)
[2018-10-18] MEDS ORDERED: Propofol* 10 MG/ML 20 ML BTL ONE (07:50)
[2018-10-18 09:10] VITALS: BP 140/42
--- NOTE | 2018-10-18 20:04 | OP ---
DATE OF OPERATION: 10/18/18 - [facility] DATE OF : 34 SURGEON: Andrew Decker MD ANESTHESIA: Local with MAC. PRE-OP DIAGNOSIS: Glaucoma, right eye, severe stage. POST-OP DIAGNOSIS: Glaucoma, right eye, severe stage. OPERATIVE PROCEDURE: Ahmed valve, right eye. COMPLICATIONS: None. DESCRIPTION OF PROCEDURE: The patient was given retrobulbar anesthesia in the operating room, 50:50 mixture of 0.25 Marcaine with epinephrine mixed with 2% lidocaine and 1 vial of Vitrase and bicarb 4 cc given in the muscle cone without difficulty. The patient was prepped and draped in the usual sterile fashion. A lid speculum was placed. Dissection carried along the limbus and then posteriorly with Farhan scissors to the level of the equator along the surface of the sclera and Ahmed valve FP8 was primed sutured to the sclera approximately 10 mm posterior to the limbus. The tube was trimmed to the length. Anterior chamber entered with the 27-gauge needle and the tube inserted into the anterior chamber. The tube was sutured to the sclera with 9-0 Prolene sutures. Donor sclera was cut to cover the tube, sutured in place with 10-0 nylon sutures. Then, the conjunctiva closed using a running locking 10-0 nylon closure. Topical atropine and Maxitrol drops were given and the eye was patched. [id number]/[facility] #: [id number] MANUEL
== END 2018-10-18 09:32 | disposition home or self-care (01) ==
LOC: OREAST 06:16
PROVIDERS: ATTEND Specialist
DX: H40.1112 Primary open-angle glaucoma, right eye, moderate stage (principal); E78.5 Hyperlipidemia, unspecified; I10 Essential (primary) hypertension; E03.9 Hypothyroidism, unspecified; M81.0 Age-related osteoporosis without current pathological fracture
CPT/HCPCS: A9270-GY; C1783; J2001; J2250; J2704; J3010; J3301; J3471; J3490; J9280

== ENCOUNTER 2019-05-11 09:46 | Emergency (ER) | payer MEDICARE ==
--- OUTSIDE RECORDS SUMMARY | 2019-05-11 09:51 | XMS REPORT | Continuity of Care Document ---
:1930 External Reference #:[id number] Author Name Desean Morales DO FACC (transmitted by agent of provider Celia Porter) Address [address] [place] [address] Care Team Providers Name Role Phone Jaqui Gutierres MD - Internal Care Team Information Kier Hand [phone] Medicine Problems Active Problems Provider Date Benign essential hypertension Dada Garcia M.D. Onset: 03/31/2010 Hypothyroidism Dada Garcia M.D. Onset: 03/31/2010 Chronic obstructive lung disease Dada Garcia M.D. 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 Onset: 03/31/2010 Atypical depressive disorder Dada Garcia M.D. Onset: 03/31/2010 Gastroesophageal reflux disease Dada Garcia M.D. Onset: 03/31/2010 Carcinoma in situ of breast Dada Garcia M.D. Onset: 03/31/2010 Lymphedema Dada Garcia M.D. Onset: 03/31/2010 Osteoporosis Dada Garcia M.D. Onset: 03/31/2010 Localized, primary osteoarthritis of the Sharon Gloria M.D. Onset: 2014 hand Localized, primary osteoarthritis of the Aparna Barry MD Onset: 06/15/2018 shoulder region Social History Type Date Description Comments Sex Unknown Tobacco Use Start: Unknown End: Former Cigarette Smoker 1-2 packs per day. Unknown 1 1/2 Packs Daily 44 years Smoking Status Reviewed: 05/07/19 Former Cigarette Smoker 1-2 packs per day. 1 1/2 Packs Daily 44 years ETOH Use Denies alcohol use Recreational Drug Use Denies Drug Use Tobacco Use Start: Unknown End: Patient is a former quit on 01/22/97, Unknown smoker smoked for 40 years, 1-2 ppd Exercise Type/Frequency Exercises regularly Exercise Type/Frequency Does housework daily Allergies, Adverse Reactions, Alerts Active Allergies Reaction Severity Comments Date Sodium Penathall 03/11/2010 Sesame Oil 12/02/2017 Bee Sting 12/02/2017 Cashew Nut Allergenic Extract 12/02/2017 Sulfa Antibiotics Nausea and Vomiting 02/23/2018 Doxycycline Nausea and Vomiting 02/23/2018 Medications Active Medications SIG Qnty Indications Ordering Date Provider Travatan each eye nightly Dada 03/11/2010 0.004% Solution Triny Garcia Calcium 600-D 1 by mouth twice Unknown Tablets a day Oxygen please use o2 at Unknown Misc 2l/min at night Valsartan 1 by mouth every Unknown 40mg Tablets day Timolol Maleate Unknown 0.5% (Daily) Solution Symbicort 2 puff twice a Unknown 160-4.5mcg/Act Aerosol day Spiriva Respimat 2 puffs every Unknown 2.5mcg/Act day Aerosol Montelukast Sodium 1 by mouth every Unknown 10mg Tablets day Lactulose 3 times daily Unknown 10GM/15ML Solution Ipratropium [place] 2 sprays in each Unknown 0.06% nostril 2 times Solution daily Hydrochlorothiazide 1 by mouth every Unknown 25mg Tablets day Fluticasone Propionate 1 sprays each Unknown 50mcg/Act nostril twice Suspension daily Fluoxetine HCL 1 by mouth every Unknown 20mg Capsules day Esomeprazole Magnesium 1 by mouth every Unknown 40mg day Capsules DR Antonio 2-Zoran use as directed Unknown 0.3mg/0.3ML Solution Auto-Inject Aspirin Low Dose Adult 1 by mouth daily Unknown 81mg Chewtabs Albuterol Sulfate 1 vial via Unknown (2.5mg/3ML) nebulizer 3 0.083% Nebulizer times daily as needed Acyclovir apply thin layer Unknown 5% Ointment to affected area as directed Synthroid 1 by mouth every Unknown 75mcg Tablets day Potassium Chloride Tracy ER 1 by mouth every Unknown 10Meq day Tablets ER Prolia 60 mg sc q6mon Unknown 60mg/ml Solution Metoprolol Tartrate 1 by mouth twice Unknown 50mg Tablets a day Proair HFA 2 puffs by mouth Unknown 108(90Base) mcg/Act every 4 hours as Aerosol needed Lipitor one tab by mouth Unknown 20mg Tablets every night at bedtime Amlodipine Besylate 1 by mouth every Unknown 10mg Tablets day Epipen use one time as 1units Dada 0.3mg/0.3ML Device directed Triny Garcia Medications Administered in Office Medication SIG Qnty Indications Ordering Provider Date Inj, Regadenoson, 0.1 MG Desean Morales, DO [facility] 01/04/2018 Injection Technetium TC 99M Desean Morales, DO [facility] 01/04/2018 Tetrofosmin, Per Unit Dose Up To 40 Millicuries Injection Triamcinolone (Kenalog) Narcisa Monique PA-C 12/15/2017 Injection Depomedrol 40MG Sharon Gloria M.D. 10/30/2015 Injection Depomedrol 80MG Sharon Gloria M.D. 03/20/2015 Injection Immunizations Description No Information Available Vital Signs Date Vital Result Comment 05/07/2019 1:54pm Height 58 inches 4'10" Weight 149.00 lb with shoes Heart Rate 60 /min BP Systolic Sitting 124 mmHg lue reg BP Diastolic Sitting 64 mmHg lue reg BP Systolic Standing 122 mmHg lue reg BP Diastolic Standing 62 mmHg lue reg Respiratory Rate 12 /min BMI (Body Mass Index) 31.1 kg/m2 Ejection Fraction 55-60% 11/01/17 09/15/2018 2:08pm Height 58 inches 4'10" Weight 149.00 lb Heart Rate 57 /min BP Systolic Sitting 115 mmHg Lue reg cuff BP Diastolic Sitting 60 mmHg Lue reg cuff O2 % BldC Oximetry 97 % BMI (Body Mass Index) 31.1 kg/m2 Results Description No Information Available Procedures Date Code Description Status 05/07/2019 61605 EKG Tracing & Interpretation Completed 03/18/2010 [id number] Mammogram Completed Medical Devices Description No Information Available Encounters Description No Information Available Assessments Date Code Description Provider 05/07/2019 Z01.810 Encounter for [facility]proced[facility] 05/07/2019 I35.0 Nonrheumatic aortic (valve) stenosis Desean Morales DO [facility] Plan of Treatment Future Appointment(s):05/14/2019 1:45 pm - Elena Hawk MD [facility]05/07/2019 - Desean Morales DO FACCZ01.810 Encounter for preprocedural cardiovascular examinationFollow up:f/u 1 year with echo prior to OVI35.0 Nonrheumatic aortic (valve) stenosis Functional Status Description No Information Available Mental Status Description No Information Available Referrals Description No Information Available
--- OUTSIDE RECORDS SUMMARY | 2019-05-11 09:51 | XMS REPORT | Continuity of Care Document ---
:1930 External Reference #:[id number] Author Name Andrew Rdz M.D. Address [address] [place] [address] Care Team Providers Name Role Phone Jaqui Gutierres M.D. Care Team Information Tool Smith [phone] Problems Active Problems Provider Date Essential hypertension Andrew Rdz M.D. Onset: 02/15/2012 Impacted cerumen Andrew Rdz M.D. Onset: 11/04/2014 Sensorineural hearing loss, bilateral Andrew Rdz M.D. Onset: 02/14 Subjective tinnitus Andrew Rdz M.D. Onset: 02/15/2012 Social History Type Date Description Comments Sex Unknown Tobacco Use Start: Unknown End: Former Cigarette Smoker 1 x 40 yrs,quit at age Unknown Pack Daily 66 Tobacco Use Start: Unknown Never Smoked Cigars Tobacco Use Start: Unknown Never Smoked A Pipe Smokeless Tobacco Never Used Smokeless Tobacco ETOH Use Denies alcohol use Tobacco Use Start: Unknown End: Patient is a former Unknown smoker Smoking Status Reviewed: 05/07/19 Patient is a former smoker Allergies, Adverse Reactions, Alerts Description No Known Drug Allergies Medications Active Medications SIG Qnty Indications Ordering Date Provider Rhopressa Instill 1 Drop Unknown 0.02% Solution In Both Eyes Every Night Around Dinnertime Restasis as directed Unknown 0.05% Emulsion Potassium Chloride ER Take 1 Capsule Unknown 10Meq By Mouth Every Capsules ER Day Montelukast Sodium Take 1 Tablet By Unknown 10mg Tablets Mouth Every Day Meloxicam Take 1 Tablet By Unknown 7.5mg Tablets Mouth Every Day Magnesium daily Unknown 400mg Tablets Lactulose Take 15ML By Unknown 10GM/15ML Solution Mouth 3 Times A Day For 90 Days Calcium 600+D bid Unknown [id number] Tablets Acyclovir Apply To Unknown 5% Ointment Affected Area 6 Times Daily For 30 Days Albuterol Sulfate Inhale 1 Vial Unknown (2.5mg/3ML) Via Nebulizer 3 0.083% Nebulizer Times A Day as Needed Esomeprazole Magnesium Take 1 Capsule Unknown 40mg By Mouth Every Capsules DR Day Fluoxetine HCL Take 1 Capsule Unknown 20mg Capsules By Mouth Every Day Losartan Potassium Take 1 Tablet By Unknown 50mg Tablets Mouth Every Day Diazepam Take 1 Tablet By Unknown 2mg Tablets Mouth Daily If Feels Anxious Travatan Z Unknown 0.004% Solution Fluticasone Propionate bid Unknown 50mcg/Act Suspension Symbicort Unknown 160-4.5mcg/Act Aerosol Timolol Maleate Unknown 0.5% Solution Spiriva Respimat Unknown 2.5mcg/Act Aerosol Ipratropium [place] Unknown 0.03% Solution Prolia 1 syringe subq Bhavik, 60mg/ml Solution every 6 months Triny Nails (july and january) Multiple OTC as directed Self Vitamins&Minerals Metoprolol bid [place], 50mg Triny Nails Proair HFA prn 2units Unknown 108(90Base) mcg/ac Aerosol Epipen Unknown Lipitor daily Unknown 20mg Tablets Hydrochlorothiazide daily Unknown 25mg Tablets Amlodipine Besylate daily Unknown 10mg Tablets Synthroid 1 by mouth every 30tabs Unknown 75mcg Tablets day Spiriva Handihaler 1 cap inhaled 30caps Unknown 18mcg Capsules qday Aspirin daily Unknown 81mg Chewtabs Immunizations Description No Information Available Vital Signs Date Vital Result Comment 05/08/2019 1:33pm BP Systolic 149 mmHg BP Diastolic 68 mmHg Heart Rate 60 /min Respiratory Rate 17 /min Weight 159.00 lb Weight 72.122 kg Height 55.5 inches 4'7.50" Height in cm's 141.0 cm BMI (Body Mass Index) 36.3 kg/m2 BP Systolic Sitting Resting Right Arm 148 mmHg BP Diastolic Sitting Resting Right Arm 60 mmHg BP Systolic Lying Down 132 mmHg BP Diastolic Lying Down 62 mmHg BP Systolic Sitting 132 mmHg BP Diastolic Sitting 62 mmHg BP Systolic Standing 130 mmHg BP Diastolic Standing 60 mmHg 06/28/2016 2:50pm BP Systolic 132 mmHg BP Diastolic 54 mmHg Heart Rate 63 /min Respiratory Rate 17 /min Weight 169.00 lb Weight 76.658 kg Height 55.5 inches 4'7.50" Height in cm's 141.0 cm BMI (Body Mass Index) 38.6 kg/m2 Results Description No Information Available Procedures Description No Information Available Medical Devices Description No Information Available Encounters Type Date Location Provider Dx Diagnosis [facility] Patel R26.81 Unsteadiness on feet 1:30p 08/29/07 Triny Rdz R29.6 Repeated falls H61.23 Impacted cerumen, bilateral H90.3 Sensorineural hearing loss, bilateral Assessments Date Code Description Provider 05/08/2019 R26.81 Unsteadiness on feet Andrew Rdz M.D. 05/08/2019 R29.6 Repeated falls Andrew Rdz M.D. 05/08/2019 H61.23 Impacted cerumen, bilateral Andrew Rdz M.D. 05/08/2019 H90.3 Sensorineural hearing loss, bilateral Andrew Rdz M.D. Plan of Treatment 05/08/2019 - Andrew Rdz M.D.R26.81 Unsteadiness on feetNew Orders: Vestibular Therapy, Ordered: 05/08/19Comments:The patient has bene unsteady on her feet gets dizzy at times and falls. She is now walking with a cane . Her doctor told her she should have a walker but she does not want one. The question for todaywas whether she had an inner ear disorder. I don't thinks he has an inner ear disorder per se otherthan presbystasis that is associated with a generalized decline in her entire vestibular system. She has underlying sensorineural hearing loss for which she wears hearing aids. The same degenerative processes are happening to her vestibular labyrinth, her peripheral proprioceptive receptors, and hercentral processing centers. she was not orthostatic on testing today. But she is on multiple highblood pressure medications and at times this may happen. My recommendation is for vestibular therapyand exercise. I have made that referral.R29.6 Repeated fallsNew Orders:Vestibular Therapy, Ordered: 05/08/19H61.23 Impacted cerumen, bilateralComments:The patient's cerumen impaction was cleaned without difficulty.H90.3 Sensorineural hearing loss, bilateralComments:Her audiogram shows bilateral symmetrical moderate sloping to severe sensorineural hearing loss. She wears hearing aids. They should work better now that her ears have been cleaned. Functional Status Description No Information Available Mental Status Description No Information Available Referrals Description No Information Available
--- NOTE | 2019-05-11 10:14 | UC ---
Head Injury HPI - HPI Summary HPI Summary: 88 y/o female presents to the urgent care accompany by daughter in-law c/o hitting her left side of her forehead and cutting her LF eyebrow s/p loosing balance and falling at home around 0844AM this morning. Daughter In-law states Pt has PMHX of B/L lymphedema, B/L feet hammertoes and decrease vision and she sometime looses balance or trips and falls. Her PCP is trying to r/o multiple factor for her lost of balance. Daughter In-Law brought a video from the house camera where it can be visualize, Pt couldn't hold onto something and falls forward and hit her left side of head and cuts her left eyebrow w/ her own glassed. Pt states she didn't LOC, and states the only pain she feels is when she touches her laceration. She took all her medication this morning as usual including ASA. She states she has been healthy and uses a walker or a cane to move around as her PCP advised to keep her balance. She is not sure why she lost balance. She doesn't know is it was that she tripped w/ her dog, but she is aware of everything that happened. Pain at touch is 4/10 associated w/ a bruise in her left eye and swelling, and bleeding stopped w/ pressure. Pt denies GONZALEZ, dizziness,visual changes, blurred vision, eye pain, photophobia, SOB , chest pain, abdominal pain, N/V/D. Daughter In-Law states when edema is increasing in lower extremities, PCP advised to use the compression boots every other day, Lately they haven't used them and probably this is the reason for her lost of balance. Pt is not sure if she is UTD w/ Tetanus vaccine. - History Of Current Complaint Chief Complaint: UCLaceration Stated Complaint: FACIAL INJURY Time Seen by Provider: 05/11/19 10:13 Hx Obtained From: Patient, Family/Spa Experience Coordinator - daughter in law ?: No Onset/Duration: Sudden Onset, Lasting Hours - 1 hrs ago, Still Present Severity Currently: Moderate Severity Initially: Mild Pain Intensity: 4 Pain Scale Used: 0-10 Numeric Character: Sharp - on the left eye Aggravating Factor(s): Other - touch Associated Signs And Symptoms: Positive: Negative. Negative: LOC (Time In Secs. 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 Verified 05/11/19 10:00 Shock cashew nut Allergy Severe Swelling Verified 05/11/19 10:00 Of Face,Lips,& Throat sesame oil Allergy Severe Itching Verified 05/11/19 10:00 sesame seed Allergy Severe Itching Verified 10/20/18 12:02 doxycycline AdvReac Severe Nausea And Verified 05/11/19 10:00 Vomiting Sulfa (Sulfonamide AdvReac Severe Nausea And Verified 05/11/19 10:00 Antibiotics) Vomiting SODIUM PENTOTHAL Allergy Severe Anaphylatic Uncoded 05/11/19 10:00 Shock / UNCONSCIOUS PMH/Surg Hx/FS Hx/Imm Hx Previously Healthy: Yes Endocrine History: Dyslipidemia Other Endocrine History: B/l lower extremity lymphedema Cardiovascular History: Cardiac Disease, Hypertension Respiratory History: COPD Neurological History: Other - vertigo Cancer History: Breast Cancer, Other - uterine CA - Surgical History Surgical History: Yes Surgery Procedure, Year, and Place: 4 glaucoma Trabeculectomy 09/2018, 04/09,04/04, 05/31, all at [facility] [place] ,lt cataract x 2,lumpectomy breast right side 2000,3 surgical biopsies,hysterectomy 2012 ,tonsils, bunionectomy right - Family History Known Family History: Positive: Respiratory Disease - Younger sister of multi system failure, had bad lungs., Other - Brother: fatal stomach CA (age of 78). Arthritis. - Social History Occupation: Retired Lives: With Family Alcohol Use: None Substance Use Type: None Smoking Status (MU): Former Smoker Have You Smoked in the Last Year: No When Did the Patient Quit Smoking/Using Tobacco: 1996 - Immunization History Most Recent Influenza Vaccination: 2018 Most Recent Tetanus Shot: unknown, thinks it is up to date Most Recent Pneumonia Vaccination: has had Review of Systems All Other Systems Reviewed And Are Negative: Yes Constitutional: Positive: Negative Skin: Positive: Other - 2 lacerations above the left eyebrow, swelling and bruise Eyes: Positive: Negative ENT: Positive: Negative Respiratory: Positive: Negative Cardiovascular: Positive: Negative Gastrointestinal: Positive: Negative Genitourinary: Positive: Negative Motor: Positive: Negative Neurovascular: Positive: Negative Musculoskeletal: Positive: Other: - left side forhead pain s/p laceration Neurological: Positive: Negative Psychological: Positive: Negative Is Patient Immunocompromised?: No Physical Exam - Summary Physical Exam Summary: Vital signs: reviewed General: well nourished, well developed old female, alert and oriented x 3, no pain or respiratory distress; no odor of ETOH. Skin: [place], warm and dry, no surface trauma. HEENT: -Head: atraumatic, no palpable deformities, -Eyes: Left eye w/ positive periorbital soft tissue swelling, ecchymosis, tenderness to palpation. No bony step-off or deformity. No palpable crepitus or subcutaneous air PERRLA. EOMI w/o limitation or complaint of pain. No limitation in upward gaze. Corneal sensation normal. Sclera and conjunctiva are clear. mild subconjunctival hemorrhage on lateral side of left conjunctiva. No obvious FB or globe disruption. Corneas are grossly clear with no obvious hyphema. -Ears: TMs clear, no hemotympanum or Battles sign. -Nose/Face: , no septal hematoma. Facial bones symmetric, Left side of forehead and left eyebrow with 2 linear superficial lacerations about 4.0cm and 3.0 cm respectively in size, mild bleeding when palpated, no foreign body observed. tenderness to palpation, surrounding ecchymosis and swelling around left eye and eyebrow. Pt can raise eyebrow w/o any problem. NT to palpation and stable with attempt at manipulation. -Mouth/Throat: no intraoral trauma, Teeth and mandible are intact. Neck: no point tenderness, step-off or deformity to firm palpation of the cervical spine at the midline. No spasm or paraspinal muscle tenderness. Trachea midline. Carotids equal. No masses. FROM without limitation or pain. Chest: no surface trauma or asymmetry. NT without crepitus or deformity. Normal tidal volume. CTA bilaterally. Oxygen saturation greater than 95% on room air. Heart: RRR, no murmur, rub, or gallop. All peripheral pulses are intact and equal. Abd: nondistended without abrasions or ecchymosis. Bowel sounds are active. NT , guarding or rebound. No masses. Good femoral pulses. Back: no contusions, ecchymosis, or abrasions are noted, NT, without step-off or deformity to firm palpation of the thoracic and lumbar spine. Pelvis: NT to palpation and stable to compression. Extrems: no surface trauma. FROM. Distal motor, neuromuscular supply is intact.B/l lower leg edema positive Neuro: A&O x4, GCS 15, CN II-XII grossly intact. Motor and sensory exam nonfocal. Reflexes are symmetric. Speech is clear and gait steady. Triage Information Reviewed: Yes Vital Signs: Initial Vital Signs Temp 97.6 F 05/11/19 09:54 Pulse 65 05/11/19 09:54 Resp 16 05/11/19 09:54 BP 150/54 05/11/19 09:54 Pulse Ox 96 05/11/19 09:54 Procedures - Laceration/Wound Repair 1 Location: face - left eye brow w/ 2 superficial linear lacerations about 4.0cm and 3.co in size repectively Description: Linear Anesthesia: 1.0% - 3ml Betadine Prep?: Yes Laceration/Wound Explored: clean Closure: Single Layer Suture Type: Prolene - 6.0 Number of Sutures: 17 - 9 on one laceration and 8 in the othr laceration repair Sterile Dressing Applied?: Yes Head Injury Course/Dx - Course Course Of Treatment: 88 y/o female presents to the urgent care accompany by daughter in-law c/o hitting her left side of her forehead and cutting her LF eyebrow s/p loosing balance and falling at home around 0844AM this morning. Daughter In-law states Pt has PMHX of B/L lymphedema, B/L feet hammertoes and decrease vision and she sometime looses balance or trips and falls. Her PCP is trying to r/o multiple factor for her lost of balance. Daughter In-Law brought a video from the house camera where it can be visualize, Pt couldn't hold onto something and falls forward and hit her left side of head and cuts her left eyebrow w/ her own glassed. Pt states she didn't LOC, and states the only pain she feels is when she touches her laceration. She took all her medication this morning as usual including ASA. She states she has been healthy and uses a walker or a cane to move around as her PCP advised to keep her balance. She is not sure why she lost balance. She doesn't know is it was that she tripped w/ her dog, but she is aware of everything that happened. Pain at touch is 4/10 associated w/ a bruise in her left eye and swelling, and bleeding stopped w/ pressure. Pt denies GONZALEZ, dizziness,visual changes, blurred vision, eye pain, photophobia, SOB , chest pain, abdominal pain, N/V/D. Daughter In-Law states when edema is increasing in lower extremities, PCP advised to use the compression boots every other day, Lately they haven't used them and probably this is the reason for her lost of balance. Pt is not sure if she is UTD w/ Tetanus vaccine. Hx obtained. Pt is hemodynamically stable,PE: WNL,A&O x4, GCS 15, CN II-XII grossly intact. Motor and sensory exam nonfocal. Reflexes are symmetric. Speech is clear and gait steady. no AMS, positive hematoma on left side of forehead and left eye w / 2 superficial lacerations involving the left eyebrow about 4.0cm and 3.0 cm in size respectively observed on exam. Neurologic exam is WNL. Pt interacts normally w/ provider w/o any focal neurological deficit. Pt applied ice and given Tylenol PO by nurse to alleviate symptoms. Pt's Symptoms discussed w/ DR Bingham who recommends CT and laceration repairs. Brain CT w/o contrast: IMPRESSION: NO ACUTE INTRACRANIAL PATHOLOGY. CHRONIC SMALL VESSEL ISCHEMIC CHANGE. Cervical CT w/o contrast: IMPRESSION: 1. OSTEOPENIA. 2. DEGENERATIVE DISC DISEASE AND OSTEOARTHRITIS. 3. NO ACUTE OSSEOUS INJURY TO THE CERVICAL SPINE. Maxilofacial CT: IMPRESSION: 1. SOFT TISSUE INJURY ANTERIOR TO THE LEFT ORBIT AND FRONTAL BONE, NO EVIDENCE FOR FRACTURE. 2. MUCOSAL THICKENING WITHIN THE SPHENOID SINUS WHICH MAY INDICATE SINUSITIS IN THE CORRECT CLINICAL SETTING. DAwter In-law and Pt explained results. LACERATION PROCEDURE NOTE: . Copious irrigation was done with saline by the nurse and the wound explored. There was no FB or deep structure injury noted patient can raise eyebrow w/o any difficulty. FROM of head. procedure was explained and consent obtained, Timeout performed w/ Nurse Todd. The wound was anesthetized with 3 mL of 1 % lido with good anesthesia. Sterile drape and prep were don. There were 9 sutures in one laceration adn 8 in the other laceration with 6.0 nylon type of suture . The length of the wound after closure was 3.0cm and 4.0 cm respectively. No debridement done. Pt tolerated the procedure well without adverse effects. Neurovascular intact and FROM of head. PCP was called later and no records of Tdap. Tdap ordered and applied by nurse later when Pt returned in the evening. Pt Rx [place] for night time as directed below and Daughter In-law advised close observation and during the day give Tyelnol PO for pain, continue applying cold compresses and rest and avoid strenuous exercised. Strongly advised to w/u w her Opthalmologist Dr Decker for further management in her left eye symptoms. Also f/u w/ her PCP in 2-3 days for check up to make sure symptoms are improving. Highly recommend to brain rest and if she develops dizziness, severe, GONZALEZ, Nausea or AMS to inmediately take Pt to the ER for further management. Also Daughter In law and Pt advised to f/u suture removal in 5 days, apply Bacitrain oint and if any signs of infection develop to immediately return to the urgent care of PCP for further management and treatment. Also to start usingn the compression boots and f/u w/ PCP for further management in her lymphedema and HTN. Daughter In-Law and Pt understood and agreed w/ plan of care and PT left the clinic ambulating, feeling better and A&Ox3. - Differential Dx/Diagnosis Differential Diagnosis/HQI/PQRI: Cerebral Contusion, Cervical Sprain, Concussion With LOC, Concussion Without LOC, Contusion, Hematoma, Intracranial Bleed, Orbital Fracture, Skull Fracture Provider Diagnosis: Head injury, Laceration of left eyebrow, Traumatic hematoma of left orbit, Uncontrolled hypertension - Physician Notification/Consults Discussed Patient Care With: Avinash Bingham - Dr Bingham agreed w/ Pt's plan of care Discharge ED - Sign-Out/Discharge Documenting (check all that apply): Patient Departure - D/C home All imaging exams completed and their final reports reviewed: Yes - Discharge Plan Condition: Stable Disposition: HOME Prescriptions: HYDROcodone/ACETAMIN 5-325 MG* [[place] 5-325 TAB*] 1 tab PO Q8H PRN #9 tab MDD 1g /4hrs-4g/day PRN Reason: moderate pain Patient Education Materials: Care For Your Stitches (ED), Laceration (ED), Head Injury (ED), Facial Contusion (ED) Referrals: Jaqui Gutierres MD [Primary Care Provider] - 3 Days Additional Instructions: 1-Please apply topical Bacitrain antibiotic over the wound 2X/day. Keep wound clean and dry 2- F/u suture removal in 5-6 days w/ your PCP or here at the urgent care. 3-Take Tylenol PO q6-8hrs prn and [place] at night time if needed for pain or swelling. 4- If you develop fever or redness around your wound please take your mother in law to the ER immediately or return to the Urgent care. 5-close observation and if your Gradmother becomes lethargic, develops GONZALEZ, N/V to immediately take her to the ER for further management. Otherwise f/u w/ her PCP if she develops mild GONZALEZ,or abnormal behavior. 6-If symptoms worsen w/ N/V and w/ severe GONZALEZ please go immediately to the ER for further management 7- Rest your brain, avoid watching videos or movies or work in the computer for long periods or time. 8- Your BP is elevated today. please decrease salt in your diet, monitor BP and if it continues to be elevated please f/u with your PCP for further management. - Billing Disposition and Condition Condition: STABLE Disposition: Home - Attestation Statements Provider Attestation: This patient was not seen by me. I was available for consult. Chart reviewed. HANDY
[2019-05-11] MEDS ORDERED: Acetaminophen TAB* 325 MG PO ONE (10:37)
[2019-05-11] MEDS ORDERED: Lidocaine 1% MPF ** 5 ML VIAL INJ ONE (10:45)
[2019-05-11 13:11] VITALS: BP 150/62
[2019-05-11] MEDS ORDERED: Tetan/Diph/Pertus SYR(Tdap)* 0.5 ML SYR(BOOSTRIX) use SYR IM ONE (19:48)
== END 2019-05-11 13:19 | disposition home or self-care (01) ==
LOC: UCEAST 09:46
DX: S01.81XA Laceration without foreign body of other part of head, initial encounter (principal); W01.0XXA Fall on same level from slipping, tripping and stumbling without subsequent striking against object, initial encounter; Y92.019 Unspecified place in single-family (private) house as the place of occurrence of the external cause; E78.5 Hyperlipidemia, unspecified; I10 Essential (primary) hypertension; J44.9 Chronic obstructive pulmonary disease, unspecified; Z85.3 Personal history of malignant neoplasm of breast; Z85.42 Personal history of malignant neoplasm of other parts of uterus; Z23 Encounter for immunization; Z88.2 Allergy status to sulfonamides; Z87.891 Personal history of nicotine dependence
CPT/HCPCS: 12014; 70450; 70486; 72125; 90471; 90715; 99212; A9270-GY; G0463

== ENCOUNTER 2020-05-08 11:45 | Inpatient (IN) ==
[2020-05-08 13:22] LABS: ABS Basophils 0.1 10^3/ul (0-0.2); ABS Eosinophils 0.2 10^3/ul (0-0.6); ABS Lymphocytes 1.3 10^3/ul (1.0-4.8); ABS Monocytes 0.6 10^3/ul (0-0.8); ABS Neutrophils 2.8 10^3/ul (1.5-7.7); Eosinophil % 3.7 %; Hematocrit 35 % (35-47); Hemoglobin 11.9 g/dL (12.0-16.0); Mean Corpuscular HGB Conc 34 g/dL (31-36); Mean Corpuscular Hemoglobin 30 pg (27-31); Mean Corpuscular Volume 89 fL (80-97); Mean Platelet Volume 9.5 fL (7.4-10.4); Platelet Count 218 10^3/uL (150-450); Red Blood Count 3.92 10^6 /uL (3.70-4.87); Red Cell Distribution Width 14 % (10-15); White Blood Count 4.9 10^3/uL (3.5-10.8)
[2020-05-08 13:26] LABS: Albumin 3.8 g/dL (3.2-5.2); CO2 Carbon Dioxide 25 mmol/L (22-32); Calcium 9.9 mg/dL (8.6-10.3); Chloride 100 mmol/L (101-111); Sodium 134 mmol/L (135-145)
[2020-05-08 13:32] LABS: ALT 19 U/L (7-52); Albumin/Globulin Ratio 1.3 (1-3); Alkaline Phosphatase 77 U/L (34-104); BUN/Creatinine Ratio 32.7 (8-20); Blood Urea Nitrogen 35 mg/dL (6-24); EGFR African American 58.7 (>60); EGFR Non-African American 48.5 (>60); Glucose 83 mg/dL (70-100); Total Protein 6.8 g/dL (6.4-8.9)
[2020-05-08] MEDS ORDERED: Ondansetron 4 mg VIAL 2 MG/ML 2 ml VIAL IV PRN (13:33)
[2020-05-08] MEDS ORDERED: Albuterol 2.5mg/3 ml (0.083%) NEB.SOLN INH PRN (13:38)
[2020-05-08 14:01] LABS: Anion Gap 9 mmol/L (2-11)
[2020-05-08 14:03] LABS: Urine Appearance Clear; Urine Bilirubin Negative (Negative); Urine Blood Negative (Negative); Urine Color Straw; Urine Glucose Negative (Negative); Urine Ketones Negative (Negative); Urine Nitrite Negative (Negative); Urine Protein Negative (Negative); Urine Specific Gravity 1.005 (1.010-1.030); Urine Urobilinogen Negative (Negative)
[2020-05-08 14:14] LABS: Urine Bacteria Absent (Absent); Urine Red Blood Cell Trace(0-2/hpf) (Absent); Urine Squamous Epithelial Cell Present (Absent); Urine White Blood Cell Trace(0-5/hpf) (Absent)
[2020-05-08] MEDS ORDERED: Fluticasone NASAL SPRAY 50MCG 16 gm SPRAY BTL BOTH NARES PRN (14:35)
[2020-05-08 15:42] LABS: Potassium Redraw 4.2 mmol/L (3.5-5.0)
[2020-05-08] MEDS: Enoxaparin 40 MG/0.4 ML SYR SUBCUT SCH (16:08)
[2020-05-08 16:33] LABS: Acetaminophen < 15 mcg/mL
[2020-05-08] MEDS: Timolol 0.5% OPTH.SOL BTL BOTH EYES SCH ×4 (17:26→22:00)
[2020-05-08] MEDS: prednisoLONE 1% OPHTH.SUSP 5 ML OPHTH.SUSP RIGHT EYE SCH (20:19)
[2020-05-08] MEDS ORDERED: Latanoprost 0.005% 2.5 ml BTL BOTH EYES SCH (21:30)
[2020-05-08] MEDS: NETARSUDIL MESYLATE LEFT EYE SCH (21:57)
[2020-05-08] MEDS: PTO:Travoprost 0.004% (NF) OPHTH.SOLN BOTH EYES SCH (22:00)
[2020-05-09] MEDS ORDERED: Influenza VAC *QUAD* 2020-21* 0.5 ML SYRINGE IM ONE (09:00)
[2020-05-09] MEDS: prednisoLONE 1% OPHTH.SUSP 5 ML OPHTH.SUSP RIGHT EYE SCH ×3 (10:13→20:14)
[2020-05-09] MEDS: Aspirin EC 81 mg TAB.EC (enteric coated) PO SCH (10:15)
[2020-05-09] MEDS: Potassium Chlor 10 meq TAB PO SCH (10:16)
[2020-05-09] MEDS: NETARSUDIL MESYLATE LEFT EYE SCH ×2 (12:41→20:11)
[2020-05-09] MEDS: Enoxaparin 40 MG/0.4 ML SYR SUBCUT SCH (14:17)
[2020-05-09] MEDS: Timolol 0.5% OPTH.SOL BTL BOTH EYES SCH (20:45)
[2020-05-09] MEDS: PTO:Travoprost 0.004% (NF) OPHTH.SOLN BOTH EYES SCH (21:36)
[2020-05-10] MEDS: PTO:Umeclidin/Vilant 62.5 MDI 62.5/25 mcg 14 INH ELLIPTA DEVICE INH SCH (08:11)
[2020-05-10] MEDS: Potassium Chlor 10 meq TAB PO SCH (08:24)
[2020-05-10] MEDS: Aspirin EC 81 mg TAB.EC (enteric coated) PO SCH (08:24)
[2020-05-10] MEDS: prednisoLONE 1% OPHTH.SUSP 5 ML OPHTH.SUSP RIGHT EYE SCH ×3 (08:25→20:27)
[2020-05-10] MEDS ORDERED: Tiotropium Brom/Olodaterol MDI INH SCH (09:00)
[2020-05-10] MEDS ORDERED: Polyethylene Glycol 3350 17 GM PACKET PO PRN (13:26)
[2020-05-10] MEDS ORDERED: Senna TAB 8.6 mg TAB PO PRN (13:26)
[2020-05-10] MEDS: Enoxaparin 40 MG/0.4 ML SYR SUBCUT SCH (14:57)
[2020-05-10] MEDS: NETARSUDIL MESYLATE LEFT EYE SCH (20:26)
[2020-05-10] MEDS: Timolol 0.5% OPTH.SOL BTL BOTH EYES SCH (20:48)
[2020-05-10] MEDS: PTO:Travoprost 0.004% (NF) OPHTH.SOLN BOTH EYES SCH (21:23)
[2020-05-11] MEDS: PTO:Umeclidin/Vilant 62.5 MDI 62.5/25 mcg 14 INH ELLIPTA DEVICE INH SCH (09:27)
[2020-05-11] MEDS: Aspirin EC 81 mg TAB.EC (enteric coated) PO SCH (09:42)
[2020-05-11] MEDS: Potassium Chlor 10 meq TAB PO SCH (09:42)
[2020-05-11] MEDS: prednisoLONE 1% OPHTH.SUSP 5 ML OPHTH.SUSP RIGHT EYE SCH ×3 (09:47→21:23)
[2020-05-11] MEDS: Enoxaparin 40 MG/0.4 ML SYR SUBCUT SCH (14:39)
[2020-05-11] MEDS: NETARSUDIL MESYLATE LEFT EYE SCH (21:22)
[2020-05-11] MEDS: Timolol 0.5% OPTH.SOL BTL BOTH EYES SCH (21:27)
[2020-05-11] MEDS: PTO:Travoprost 0.004% (NF) OPHTH.SOLN BOTH EYES SCH (21:27)
[2020-05-12] MEDS: PTO:Umeclidin/Vilant 62.5 MDI 62.5/25 mcg 14 INH ELLIPTA DEVICE INH SCH (07:59)
[2020-05-12 08:24] LABS: Urine Appearance Clear; Urine Bilirubin Negative (Negative); Urine Blood Negative (Negative); Urine Color Straw; Urine Glucose Negative (Negative); Urine Ketones Negative (Negative); Urine Nitrite Negative (Negative); Urine Protein Negative (Negative); Urine Specific Gravity 1.006 (1.010-1.030); Urine Urobilinogen Negative (Negative)
[2020-05-12] MEDS: Potassium Chlor 10 meq TAB PO SCH (08:24)
[2020-05-12] MEDS: Aspirin EC 81 mg TAB.EC (enteric coated) PO SCH (08:24)
[2020-05-12] MEDS: prednisoLONE 1% OPHTH.SUSP 5 ML OPHTH.SUSP RIGHT EYE SCH ×3 (08:25→20:47)
[2020-05-12] MEDS: Enoxaparin 40 MG/0.4 ML SYR SUBCUT SCH (13:53)
[2020-05-12] MEDS: NETARSUDIL MESYLATE LEFT EYE SCH (20:46)
[2020-05-12] MEDS: PTO:Travoprost 0.004% (NF) OPHTH.SOLN BOTH EYES SCH (20:47)
[2020-05-12] MEDS: Timolol 0.5% OPTH.SOL BTL BOTH EYES SCH (21:03)
[2020-05-13] MEDS: PTO:Umeclidin/Vilant 62.5 MDI 62.5/25 mcg 14 INH ELLIPTA DEVICE INH SCH (08:07)
[2020-05-13 08:45] VITALS: BP 110/52
[2020-05-13] MEDS: Potassium Chlor 10 meq TAB PO SCH (09:44)
[2020-05-13] MEDS: Aspirin EC 81 mg TAB.EC (enteric coated) PO SCH (09:45)
[2020-05-13] MEDS: prednisoLONE 1% OPHTH.SUSP 5 ML OPHTH.SUSP RIGHT EYE SCH (10:00)
== END 2020-05-13 10:50 | DRG 536 ==
LOC: ED 11:45 → MED 14:33
PROVIDERS: ADMIT Student in an Organized Health Care Education/Training Program; ATTEND Internal Medicine

== ENCOUNTER 2022-09-02 08:04 | Inpatient (IN) ==
[2022-09-02 10:29] LABS: Urine Appearance Cloudy; Urine Bilirubin Negative (Negative); Urine Blood Negative (Negative); Urine Color Straw; Urine Glucose Negative (Negative); Urine Ketones Negative (Negative); Urine Nitrite Positive (Negative); Urine Protein Negative (Negative); Urine Specific Gravity 1.005 (1.002-1.030); Urine Urobilinogen Negative (Negative)
[2022-09-02 10:30] LABS: ABS Basophils 0.1 10^3/ul (0-0.2); ABS Eosinophils 0.2 10^3/ul (0-0.6); ABS Lymphocytes 1.2 10^3/ul (1.0-4.8); ABS Monocytes 0.7 10^3/ul (0-0.8); ABS Neutrophils 4.1 10^3/ul (1.5-7.7); Eosinophil % 2.8 %; Hematocrit 36 % (35-47); Hemoglobin 11.9 g/dL (12.0-16.0); Lymphocyte % 18.6 %; Mean Corpuscular HGB Conc 33 g/dL (31-36); Mean Corpuscular Hemoglobin 29 pg (27-31); Mean Corpuscular Volume 87 fL (80-97); Mean Platelet Volume 7.2 fL (7.4-10.4); Nucleated Red Blood Cells % 0.1; Platelet Count 376 10^3/uL (150-450); Red Blood Count 4.15 10^6 /uL (3.70-4.87); Red Cell Distribution Width 15 % (10-15); White Blood Count 6.2 10^3/uL (3.5-10.8)
[2022-09-02 10:37] LABS: Urine Bacteria Absent (Absent); Urine Red Blood Cell Trace(0-2/hpf) (Absent); Urine White Blood Cell Trace(0-5/hpf) (Absent)
[2022-09-02 11:15] LABS: Albumin 3.7 g/dL (3.2-5.2); Albumin/Globulin Ratio 1.1 (1-3); Calcium 9.3 mg/dL (8.6-10.3); Globulin 3.3 g/dL (2-4); Magnesium 2.3 mg/dL (1.9-2.7); eGFR CKD-EPI 63.6 (>60)
[2022-09-02 12:23] LABS: Potassium 5.1 mmol/L (3.5-5.0)
[2022-09-02] MEDS ORDERED: ACYCLOVIR 5% TOPICAL PRN (13:39)
[2022-09-02] MEDS ORDERED: Albuterol 2.5mg/3 ml (0.083%) NEB.SOLN INH PRN (13:39)
[2022-09-02] MEDS: HYDROcodone/Acetamin 10/325 TAB (NF) PO PRN ×2 (15:52→22:23)
[2022-09-02] MEDS ORDERED: Morphine 15 mg TAB (NF) PO PRN (15:53)
[2022-09-02] MEDS ORDERED: Morphine 2 MG/ML SYRINGE IV PRN (16:00)
[2022-09-02] MEDS ORDERED: Magnesium Hydroxide LIQ 30 ML UDC PO PRN (16:01)
[2022-09-02] MEDS ORDERED: D5W 1/2 NS 1000 ml BAG 1,000 ML IV SCH (17:00)
[2022-09-02] MEDS ORDERED: Enoxaparin 40 MG/0.4 ML SYR SUBCUT SCH (17:00)
[2022-09-02] MEDS ORDERED: Latanoprost 0.005% 2.5 ml BTL LEFT EYE SCH (21:00)
[2022-09-02] MEDS: Fluticasone NASAL SPRAY 50MCG 16 gm SPRAY BTL INTRANASAL SCH (22:17)
[2022-09-02] MEDS: NF: IPRATROPIUM BR (NF)0.03% NASAL 1 SPRAY BTL BOTH NARES SCH (22:19)
[2022-09-02] MEDS: NETARSUDIL 0.02% LEFT EYE SCH (22:19)
[2022-09-02] MEDS: Enoxaparin 40 MG/0.4 ML SYR SUBCUT SCH (22:53)
[2022-09-03 06:19] LABS: Calcium 8.6 mg/dL (8.6-10.3); Potassium 4.3 mmol/L (3.5-5.0)
[2022-09-03 06:24] LABS: C Reactive Protein 14.77 mg/L (<8.01); eGFR CKD-EPI 77.3 (>60)
[2022-09-03 06:32] LABS: ABS Eosinophils 0.3 10^3/ul (0-0.6); ABS Lymphocytes 1.3 10^3/ul (1.0-4.8); ABS Monocytes 0.8 10^3/ul (0-0.8); Hematocrit 33 % (35-47); Hemoglobin 11.1 g/dL (12.0-16.0); Mean Corpuscular HGB Conc 33 g/dL (31-36); Mean Corpuscular Hemoglobin 29 pg (27-31); Mean Corpuscular Volume 86 fL (80-97); Mean Platelet Volume 7.6 fL (7.4-10.4); Platelet Count 358 10^3/uL (150-450); Red Cell Distribution Width 15 % (10-15); White Blood Count 6.4 10^3/uL (3.5-10.8)
[2022-09-03] MEDS: NF: IPRATROPIUM BR (NF)0.03% NASAL 1 SPRAY BTL BOTH NARES SCH ×2 (08:51→21:13)
[2022-09-03] MEDS: HYDROcodone/Acetamin 10/325 TAB (NF) PO PRN ×3 (09:02→22:09)
[2022-09-03] MEDS: DULoxetine DR 60 mg CAP PO SCH (09:02)
[2022-09-03] MEDS: Senna TAB 8.6 mg TAB PO PRN (09:03)
[2022-09-03] MEDS: Fluticasone NASAL SPRAY 50MCG 16 gm SPRAY BTL INTRANASAL SCH ×2 (09:03→21:11)
[2022-09-03] MEDS: Timolol 0.5% OPTH.SOL BTL BOTH EYES SCH (09:03)
[2022-09-03] MEDS: cefTRIAXone 1 gm/50 mL D5W 1 GM/50 ML BAG IV SCH (15:06)
[2022-09-03] MEDS: Enoxaparin 40 MG/0.4 ML SYR SUBCUT SCH (21:11)
[2022-09-03] MEDS: NETARSUDIL 0.02% LEFT EYE SCH (22:14)
[2022-09-03] MEDS: TRAVOPROST 0.004% LEFT EYE SCH (22:14)
[2022-09-04 07:27] LABS: ABS Basophils 0.1 10^3/ul (0-0.2); ABS Eosinophils 0.3 10^3/ul (0-0.6); ABS Lymphocytes 1.4 10^3/ul (1.0-4.8); ABS Monocytes 0.9 10^3/ul (0-0.8); ABS Neutrophils 4.4 10^3/ul (1.5-7.7); Eosinophil % 4.8 %; Hematocrit 34 % (35-47); Hemoglobin 11.4 g/dL (12.0-16.0); Lymphocyte % 19.8 %; Mean Corpuscular HGB Conc 34 g/dL (31-36); Mean Corpuscular Hemoglobin 29 pg (27-31); Mean Corpuscular Volume 86 fL (80-97); Mean Platelet Volume 7.1 fL (7.4-10.4); Platelet Count 356 10^3/uL (150-450); Red Blood Count 3.94 10^6 /uL (3.70-4.87); Red Cell Distribution Width 15 % (10-15); White Blood Count 7.1 10^3/uL (3.5-10.8)
[2022-09-04] MEDS: Fluticasone NASAL SPRAY 50MCG 16 gm SPRAY BTL INTRANASAL SCH ×2 (07:49→22:12)
[2022-09-04] MEDS: NF: IPRATROPIUM BR (NF)0.03% NASAL 1 SPRAY BTL BOTH NARES SCH ×2 (07:49→22:08)
[2022-09-04] MEDS: DULoxetine DR 60 mg CAP PO SCH (07:59)
[2022-09-04] MEDS: Senna TAB 8.6 mg TAB PO PRN (07:59)
[2022-09-04 08:00] LABS: Calcium 8.4 mg/dL (8.6-10.3); Potassium 4.4 mmol/L (3.5-5.0); eGFR CKD-EPI 74.9 (>60)
[2022-09-04] MEDS: HYDROcodone/Acetamin 10/325 TAB (NF) PO PRN ×3 (08:00→22:14)
[2022-09-04] MEDS: PTO: Umeclidin/Vilant 62.5 MDI 62.5/25 mcg 14 INH ELLIPTA DEVICE INH SCH (08:03)
[2022-09-04] MEDS: Timolol 0.5% OPTH.SOL BTL BOTH EYES SCH (08:03)
[2022-09-04] MEDS: cefTRIAXone 1 gm/50 mL D5W 1 GM/50 ML BAG IV SCH (13:48)
[2022-09-04] MEDS: Enoxaparin 40 MG/0.4 ML SYR SUBCUT SCH (22:07)
[2022-09-04] MEDS: NETARSUDIL 0.02% LEFT EYE SCH (22:07)
[2022-09-04] MEDS: TRAVOPROST 0.004% LEFT EYE SCH (22:08)
[2022-09-05] MEDS ORDERED: Morphine 2 MG/ML SYRINGE IV ONE (04:13)
[2022-09-05] MEDS: HYDROcodone/Acetamin 10/325 TAB (NF) PO PRN ×2 (05:25→10:13)
[2022-09-05 05:28] LABS: ABS Basophils 0.1 10^3/ul (0-0.2); ABS Eosinophils 0.4 10^3/ul (0-0.6); ABS Lymphocytes 1.5 10^3/ul (1.0-4.8); ABS Monocytes 0.9 10^3/ul (0-0.8); ABS Neutrophils 4.5 10^3/ul (1.5-7.7); Eosinophil % 5.3 %; Hematocrit 36 % (35-47); Hemoglobin 12.1 g/dL (12.0-16.0); Lymphocyte % 20.6 %; Mean Corpuscular HGB Conc 34 g/dL (31-36); Mean Corpuscular Hemoglobin 29 pg (27-31); Mean Corpuscular Volume 87 fL (80-97); Mean Platelet Volume 7.3 fL (7.4-10.4); Platelet Count 369 10^3/uL (150-450); Red Blood Count 4.11 10^6 /uL (3.70-4.87); Red Cell Distribution Width 15 % (10-15); White Blood Count 7.4 10^3/uL (3.5-10.8)
[2022-09-05 06:21] LABS: Calcium 8.5 mg/dL (8.6-10.3); Potassium 4.3 mmol/L (3.5-5.0); eGFR CKD-EPI 66.4 (>60)
[2022-09-05] MEDS: DULoxetine DR 60 mg CAP PO SCH (09:09)
[2022-09-05] MEDS: PTO: Umeclidin/Vilant 62.5 MDI 62.5/25 mcg 14 INH ELLIPTA DEVICE INH SCH (09:09)
[2022-09-05] MEDS: Fluticasone NASAL SPRAY 50MCG 16 gm SPRAY BTL INTRANASAL SCH ×2 (09:09→20:26)
[2022-09-05] MEDS: Timolol 0.5% OPTH.SOL BTL BOTH EYES SCH (09:09)
[2022-09-05] MEDS: NF: IPRATROPIUM BR (NF)0.03% NASAL 1 SPRAY BTL BOTH NARES SCH ×2 (09:10→20:25)
[2022-09-05] MEDS ORDERED: Morphine 4 MG/ML VIAL (1 ml) IV ONE (09:22)
[2022-09-05] MEDS ORDERED: HYDROcodone/Acetamin 10/325 TAB (NF) PO SCH (13:00)
[2022-09-05] MEDS: HYDROcodone/Acetamin 10/325 TAB (NF) PO SCH ×2 (16:33→20:20)
[2022-09-05] MEDS: NETARSUDIL 0.02% LEFT EYE SCH (20:21)
[2022-09-05] MEDS: Enoxaparin 40 MG/0.4 ML SYR SUBCUT SCH (20:25)
[2022-09-05] MEDS: TRAVOPROST 0.004% LEFT EYE SCH (22:00)
[2022-09-06 06:34] LABS: Calcium 8.4 mg/dL (8.6-10.3); Potassium 4.8 mmol/L (3.5-5.0)
[2022-09-06] MEDS: Polyethylene Glycol 3350 17 GM PACKET PO SCH (08:59)
[2022-09-06] MEDS: PTO: Umeclidin/Vilant 62.5 MDI 62.5/25 mcg 14 INH ELLIPTA DEVICE INH SCH (08:59)
[2022-09-06] MEDS: DULoxetine DR 30 mg CAP PO SCH (09:00)
[2022-09-06] MEDS: HYDROcodone/Acetamin 10/325 TAB (NF) PO SCH ×4 (09:00→20:36)
[2022-09-06] MEDS: Fluticasone NASAL SPRAY 50MCG 16 gm SPRAY BTL INTRANASAL SCH ×2 (09:01→20:37)
[2022-09-06] MEDS: NF: IPRATROPIUM BR (NF)0.03% NASAL 1 SPRAY BTL BOTH NARES SCH ×2 (09:01→20:37)
[2022-09-06 15:27] LABS: Rapid COVID-19 Molecular Undetected (Undetected)
[2022-09-06 19:40] LABS: Calcium 8.2 mg/dL (8.6-10.3); Potassium 4.6 mmol/L (3.5-5.0); eGFR CKD-EPI 57.3 (>60)
[2022-09-06] MEDS: NETARSUDIL 0.02% LEFT EYE SCH (20:35)
[2022-09-06] MEDS: TRAVOPROST 0.004% LEFT EYE SCH (20:40)
[2022-09-06] MEDS ORDERED: Enoxaparin 30 MG/0.3 ML SYR SUBCUT SCH (21:00)
[2022-09-06] MEDS ORDERED: Timolol 0.5% OPTH.SOL BTL BOTH EYES SCH (21:30)
[2022-09-07] MEDS: DULoxetine DR 30 mg CAP PO SCH (08:09)
[2022-09-07] MEDS: HYDROcodone/Acetamin 10/325 TAB (NF) PO SCH (08:09)
[2022-09-07] MEDS: NF: IPRATROPIUM BR (NF)0.03% NASAL 1 SPRAY BTL BOTH NARES SCH (08:10)
[2022-09-07] MEDS: Polyethylene Glycol 3350 17 GM PACKET PO SCH (08:13)
[2022-09-07 09:29] LABS: ABS Eosinophils 0.5 10^3/ul (0-0.6); ABS Lymphocytes 0.7 10^3/ul (1.0-4.8); ABS Monocytes 0.8 10^3/ul (0-0.8); ABS Neutrophils 5.2 10^3/ul (1.5-7.7); Eosinophil % 7.4 %; Hematocrit 37 % (35-47); Hemoglobin 12.4 g/dL (12.0-16.0); Mean Corpuscular HGB Conc 34 g/dL (31-36); Mean Corpuscular Hemoglobin 29 pg (27-31); Mean Corpuscular Volume 86 fL (80-97); Mean Platelet Volume 7.7 fL (7.4-10.4); Platelet Count 356 10^3/uL (150-450); Red Blood Count 4.23 10^6 /uL (3.70-4.87); Red Cell Distribution Width 15 % (10-15); White Blood Count 7.3 10^3/uL (3.5-10.8)
[2022-09-07 09:49] LABS: Calcium 8.5 mg/dL (8.6-10.3); Potassium 4.8 mmol/L (3.5-5.0); eGFR CKD-EPI 63.6 (>60)
[2022-09-07] MEDS: Fluticasone NASAL SPRAY 50MCG 16 gm SPRAY BTL INTRANASAL SCH (11:22)
[2022-09-07 12:47] VITALS: BP 136/68
== END 2022-09-07 14:30 | DRG 536 ==
LOC: ED 08:04 → EDHOLD 13:11 → SUATTDRO 13:11 → EDHOLD 15:30 → SSU 15:44
PROVIDERS: ADMIT Internal Medicine; ATTEND Hospitalist